=== PATIENT | female | born 1960 | race Caucasian/White ===

== ENCOUNTER 2016-10-05 14:01 | Inpatient (IN) ==
[2016-10-05] MEDS ORDERED: 0.9 % Sodium Chloride 500 ML IVC ONE (14:07)
[2016-10-05] MEDS ORDERED: Aspirin 81 MG TAB.CHEW PO ONE (14:07)
[2016-10-05] MEDS ORDERED: Ondansetron 4 MG/2 ML VIAL IVP ONE (14:09)
[2016-10-05] MEDS ORDERED: *HR* LORazepam 2 MG/ML VIAL IVP ONE (14:14)
--- NOTE | 2016-10-05 14:20 | Emergency Department Note ---
Disposition Clinical Impression: COPD exacerbation, Tachypnea, Lactic acidosis Leukocytosis Qualifiers: Leukocytosis type: unspecified Qualified Code(s): D72.829 - Elevated white blood cell count, unspecified Disposition: Admitted As Inpatient Condition: Undetermined Forms: ED Satisfaction Letter SOB HPI - General Chief Complaint: ED Shortness of Breath/Dyspnea Stated Complaint: GRETCHEN Time Seen by Provider: 10/05/16 14:04 Source: patient, EMS Limitations: no limitations Nursing Notes Reviewed: Yes Vital Signs Reviewed: Yes - History of Present Illness Patient 56-year-old female complains of sudden onset of epigastric abdominal pain, nausea, vomiting, diarrhea 2 was goes. Patient states that she has been feeling ill prior to this but is unable to elaborate on when everything initially started. Patient unable to describe abdominal pain symptoms other than saying it hurts. Patient able to point to the epigastric region of her abdomen. Patient states she cannot breathe as well. Patient states she has a history of COPD, and cholecystectomy. Patient denies cardiac history. - Related Data Home Medications Medication Instructions Recorded Confirmed Suboxone 8 mg-2 mg Sl Film 4 mg PO QID 10/03/15 10/04/15 Budesonide/Formoterol 80/4.5 2 puff AER BID 10/04/15 10/04/15 [Symbicort 80/4.5] CloNIDine HCl 0.1 mg PO BID 10/04/15 10/04/15 Docusate Sodium 100 mg PO BID 10/04/15 10/04/15 Lisinopril [Zestril] 40 mg PO DAILY 10/04/15 10/04/15 Metoprolol [Lopressor] 50 mg PO BID 10/04/15 10/04/15 Montelukast [Singulair] 10 mg PO QPM 10/04/15 10/04/15 Paroxetine [Paxil] 40 mg PO DAILY 10/04/15 10/04/15 Trazodone HCl [TraZODone] 100 mg PO QPM 10/04/15 10/04/15 Previous Rx's Medication Instructions Recorded Amoxicillin/Clavulanate [Augmentin] 875 mg PO BIDWM #20 tablet 10/07/15 Dicyclomine [Bentyl] 20 mg PO QID PRN #40 capsule 01/02/16 Allergies Allergy/AdvReac Type Severity Reaction Status Date / Time acetaminophen [From Vicodin] Allergy Nausea Verified 10/03/15 18:47 hydrocodone [From Vicodin] Allergy Nausea Verified 10/03/15 18:47 Sulfa (Sulfonamide Allergy Blister Verified 10/03/15 18:47 Antibiotics) Review of Systems: When asked patient states she has nausea, vomiting, diarrhea, abdominal pain and shortness of breath. Patient states "I do not know" for all other questions on review of systems All systems ED: reviewed and negative except as stated. 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 history: Reports: cervical cancer - Social History Smoking Status: Current every day smoker Smokeless Tobacco Status: No Alcohol use: Reports: rarely Drug use: Reports: other Physical Exam Vital Signs Temperature 98.2 F 10/05/16 14:01 Pulse Rate 86 10/05/16 14:01 Respiratory Rate 22 10/05/16 14:01 Blood Pressure 125/97 10/05/16 14:01 O2 Sat by Pulse Oximetry 99 10/05/16 14:01 Temperature 98.2 F 10/05/16 14:01 Pulse Rate 67 10/05/16 14:07 Respiratory Rate 24 10/05/16 14:07 Blood Pressure 125/97 10/05/16 14:07 O2 Sat by Pulse Oximetry 100 10/05/16 14:12 Oxygen Delivery Oxygen Delivery Aerosol Mask -General Appearance: Patient is a 56-year-old female who appears in acute distress but is alert and oriented 3. Patient is diaphoretic and has labored breathing, and takes respiratory processes -Neurological exam: Cranial nerves II-12 intact, no focal deficits observed, strength equal 5/5 bilaterally in upper and lower extremities, cerebellar motion test negative. Negative loss of sensation - Head Head exam: atraumatic, normocephalic, normal inspection - Eye Eye exam: Present: normal appearance, PERRL, EOMI, negative for scleral icterus negative for conjunctival pallor - ENT ENT exam: normal exam, normal oropharynx, mucous membranes moist - Neck Neck exam: Present: normal inspection, full ROM, trachea midline, negative JVD - Chest Chest inspection: Present: Patient has bilateral equal rise and fall of chest wall. Non-tender to palpation. - Respiratory Respiratory exam: Clear to auscultation bilaterally without wheezes rales or rhonchi Cardiovascular Cardiovascular exam: Present: regular rate, normal rhythm, normal heart sounds, without murmurs rubs or gallops. - Abdominal Exam Abdominal exam: Present: soft, nondistended, Tender light and deep palpation in all quadrants. Bowel sounds normoactive throughout all 4 quadrants. Negative for hyper or hyperresonance. - Extremities Exam Extremities exam: Present: normal inspection, full ROM, diaphoretic, no pallor pulses equal bilateral upper and lower extremities - Back Exam Back exam: Present: normal inspection, full ROM. Absent: tenderness, CVA tenderness (R), CVA tenderness (L) - Psychiatric Psychiatric exam: Present: normal affect, normal mood - Skin Skin exam: Present: warm, moist and cool, intact, normal color - General Limitations: no limitations General appearance: alert, in no apparent distress Course Course Narrative: Patient seen and examined. Patient placed on O2 via nonrebreather, BiPAP initiated, ABG obtained, labs and imaging ordered. - Reevaluation(s) Reevaluation #1: Patient's ABG returned showing the patient is alkalotic and tachypnea. BiPAP discontinued Time: 14:35 Reevaluation #2: Patient presented her rate got better patient no longer tachypneic. Patient still in pain should be receiving 0.5 mg Dilaudid patient has had 1 mg of Ativan Time: 14:51 Reevaluation #3: Patient states her breathing is improved greatly. Pain level VII out of 10. We will administer another dose of pain medication. Discussed the patient and recommend admission given her state and patient agrees and understands excess treatment plan. Time: 16:54 - Consultations Consultation #1: Dr. Mcguire has accepted for Admission Time: 17:12 Vital Signs Temperature 98.2 F 10/05/16 14:01 Pulse Rate 86 10/05/16 14:01 Respiratory Rate 22 10/05/16 14:01 Blood Pressure 125/97 10/05/16 14:01 O2 Sat by Pulse Oximetry 99 10/05/16 14:01 Temperature 98.2 F 10/05/16 14:01 Pulse Rate 58 10/05/16 15:10 Respiratory Rate 21 10/05/16 15:10 Blood Pressure 137/99 10/05/16 15:10 O2 Sat by Pulse Oximetry 98 10/05/16 15:10 Oxygen Delivery Oxygen Delivery Room Air Shortness of Breath/Dyspnea - [facility] Narrative Medical decision making narrative: Patient is an presentation concerning for COPD exacerbation, abdominal pain secondary to possible ileus, pancreatitis, bowel obstruction, mesenteric ischemia. Patient's chest x-ray showed no acute abnormalities, troponin was negative at 0.01. Patient's place on BiPAP on arrival. ABG showed alkalosis with patient to get pink and breathing over BiPAP. BiPAP was discontinued and patient was given 1 mg Ativan to help her calm down 0.5 mg of Dilaudid for abdominal pain. Physical BiPAP patients breathing rate has decreased and patient is respiratory and perfusion well. Rate of 16, O2 sat of 96 and 99 on room air. Current labs show WBC of 15.1, lipase was negative at 22, lactic acid 2.6. CT abdomen and pelvis showed no acute findings. Patient appears to have had respiratory distress secondary to COPD exacerbation. Patient's breathing rate has been controlled. Patient is breathing better per the patient. Unable to find any clear etiology for patient 's abdominal pain. Pt is Afebrile. The patient is requiring multiple doses of Dilaudid to control her abdominal pain. Patient does have an acute rise in lactic acid 2.6 and a WBC of 15.1. Recommend patient admitted to the hospital for further workup. Patient appears borderline toxic, Patient also feels that she cannot go home like this. Consulted with Dr. Mcguire who has asked to prophylactically treat patient with antibiotics. Pt currently does not have a clear source for infection, but patient has presented with a COPD exacerbation. Start patient on 750 mg levofloxacin IV to cover for possible pulmonary infection unclear etiology - Medical Records Medical records reviewed: Yes I reviewed the patient's medical records. - Lab Data Lab results reviewed: Yes I reviewed the patient's lab results. Lab results narrative: Short CBC 10/05/16 Range/Units 14:20 WBC 15.1 H (4.3-11.1) K/mcL Hgb 15.7 H (11.5-15.4) g/dL Hct 44.8 (35.3-44.9) % Plt Count 336 (140-400) K/mcL Neutrophils # 12.4 H (1.6-8.9) K/mcL BMP 10/05/16 Range/Units 14:20 Sodium 140 (136-145) mEq/L Potassium 4.3 (3.5-4.5) mEq/L Chloride 102 (98-109) mEq/L Carbon Dioxide 21 (19-29) mEq/L BUN 12 (7-20) mg/dL Creatinine 0.94 (0.57-1.11) mg/dL Glucose 144 H (70-99) mg/dL Calcium 10.2 (8.6-10.8) mg/dL Cardiac Enzymes 10/05/16 Range/Units 14:20 Troponin I 0.01 (0-0.03) ng/mL Result diagrams: 10/05/16 14:20 10/05/16 14:20 Lab Results 10/05/16 10/05/16 10/05/16 Range/Units 14:19 14:20 14:20 WBC 15.1 H (4.3-11.1) K/mcL RBC 5.07 H (3.82-4.97) M/mcL Hgb 15.7 H (11.5-15.4) g/dL Hct 44.8 (35.3-44.9) % MCV 88.4 (83.0-100.0) fL MCH 31.0 (28.0-33.3) pg MCHC 35.0 (31.6-35.5) g/dL RDW 12.8 (11.5-14.5) % Plt Count 336 (140-400) K/mcL MPV 9.1 L (9.4-12.4) fL Immature Gran % 0.3 (0-4) % Seg Neutrophils % 81.6 % Lymphocytes % 14.5 % Monocytes % 3.2 % Eosinophils % 0.1 % Basophils % 0.3 % Neutrophils # 12.4 H (1.6-8.9) K/mcL Lymphocytes # 2.2 (0.6-4.6) K/mcL Monocytes # 0.5 (0.0-1.3) K/mcL Eosinophils # 0.0 (0.0-0.6) K/mcL Basophils # 0.1 (0.0-0.2) K/mcL PT (9.4-12.1) Seconds INR APTT (26.0-36.0) Seconds ABG pH 7.62 H* (7.32-7.45) pH Units ABG pCO2 20 L* (35-45) mmHg ABG pO2 208 H (85-104) mmHg ABG HCO3 20.6 L (21-27) mEQ/L ABG Total CO2 21.2 (20-26) mEq/L ABG O2 Saturation 100 H (95-98) % ABG Base Excess 1.8 (-2.0 to 3.0) mEq/L Blood Gas Modality BIPAP Inspired O2 40 % Sodium (136-145) mEq/L Potassium (3.5-4.5) mEq/L Chloride (98-109) mEq/L Carbon Dioxide (19-29) mEq/L BUN (7-20) mg/dL Creatinine (0.57-1.11) mg/dL Est GFR ( Amer) (> 60) Est GFR (Non-Af Amer) (> 60) BUN/Creatinine Ratio (6-26) Glucose (70-99) mg/dL Calculated Osmolality (280-300) Lactic Acid (0.5-2.2) mmol/L Calcium (8.6-10.8) mg/dL Troponin I (0-0.03) ng/mL Lipase 22 (8-78) Units/L Specimen Rejected 10/05/16 10/05/16 10/05/16 Range/Units 14:20 14:20 14:20 WBC (4.3-11.1) K/mcL RBC (3.82-4.97) M/mcL Hgb (11.5-15.4) g/dL Hct (35.3-44.9) % MCV (83.0-100.0) fL MCH (28.0-33.3) pg MCHC (31.6-35.5) g/dL RDW (11.5-14.5) % Plt Count (140-400) K/mcL MPV (9.4-12.4) fL Immature Gran % (0-4) % Seg Neutrophils % % Lymphocytes % % Monocytes % % Eosinophils % % Basophils % % Neutrophils # (1.6-8.9) K/mcL Lymphocytes # (0.6-4.6) K/mcL Monocytes # (0.0-1.3) K/mcL Eosinophils # (0.0-0.6) K/mcL Basophils # (0.0-0.2) K/mcL PT (9.4-12.1) Seconds INR APTT (26.0-36.0) Seconds ABG pH (7.32-7.45) pH Units ABG pCO2 (35-45) mmHg ABG pO2 (85-104) mmHg ABG HCO3 (21-27) mEQ/L ABG Total CO2 (20-26) mEq/L ABG O2 Saturation (95-98) % ABG Base Excess (-2.0 to 3.0) mEq/L Blood Gas Modality Inspired O2 % Sodium 140 (136-145) mEq/L Potassium 4.3 (3.5-4.5) mEq/L Chloride 102 (98-109) mEq/L Carbon Dioxide 21 (19-29) mEq/L BUN 12 (7-20) mg/dL Creatinine 0.94 (0.57-1.11) mg/dL Est GFR ( Amer) > 60 (> 60) Est GFR (Non-Af Amer) > 60 (> 60) BUN/Creatinine Ratio 13 (6-26) Glucose 144 H (70-99) mg/dL Calculated Osmolality 292 (280-300) Lactic Acid (0.5-2.2) mmol/L Calcium 10.2 (8.6-10.8) mg/dL Troponin I 0.01 (0-0.03) ng/mL Lipase (8-78) Units/L Specimen Rejected Hemolyzed 10/05/16 10/05/16 Range/Units 15:06 15:06 WBC (4.3-11.1) K/mcL RBC (3.82-4.97) M/mcL Hgb (11.5-15.4) g/dL Hct (35.3-44.9) % MCV (83.0-100.0) fL MCH (28.0-33.3) pg MCHC (31.6-35.5) g/dL RDW (11.5-14.5) % Plt Count (140-400) K/mcL MPV (9.4-12.4) fL Immature Gran % (0-4) % Seg Neutrophils % % Lymphocytes % % Monocytes % % Eosinophils % % Basophils % % Neutrophils # (1.6-8.9) K/mcL Lymphocytes # (0.6-4.6) K/mcL Monocytes # (0.0-1.3) K/mcL Eosinophils # (0.0-0.6) K/mcL Basophils # (0.0-0.2) K/mcL PT 12.5 H (9.4-12.1) Seconds INR 1.2 APTT 25.9 L (26.0-36.0) Seconds ABG pH (7.32-7.45) pH Units ABG pCO2 (35-45) mmHg ABG pO2 (85-104) mmHg ABG HCO3 (21-27) mEQ/L ABG Total CO2 (20-26) mEq/L ABG O2 Saturation (95-98) % ABG Base Excess (-2.0 to 3.0) mEq/L Blood Gas Modality Inspired O2 % Sodium (136-145) mEq/L Potassium (3.5-4.5) mEq/L Chloride (98-109) mEq/L Carbon Dioxide (19-29) mEq/L BUN (7-20) mg/dL Creatinine (0.57-1.11) mg/dL Est GFR ( Amer) (> 60) Est GFR (Non-Af Amer) (> 60) BUN/Creatinine Ratio (6-26) Glucose (70-99) mg/dL Calculated Osmolality (280-300) Lactic Acid 2.6 H (0.5-2.2) mmol/L Calcium (8.6-10.8) mg/dL Troponin I (0-0.03) ng/mL Lipase (8-78) Units/L Specimen Rejected - Radiology Data Radiology results reviewed: Yes I reviewed the patient's radiology results. Chest X-Ray 10/05/16 14:07 IMPRESSION: Negative chest x-ray. No evidence of acute cardiopulmonary disease. D/ / Maicol Shea MD / Maicol Shea MD Interpreting Provider: Maicol Shea MD - EKG Data EKG attestation: Yes I reviewed and interpreted this EKG. EKG results narrative: EKG taken 10/05/2015 at 1407 hrs. shows a sinus rhythm at [address] deviations in the leads no signs of new right bundle branch block, no QT prolongation no QRS widening. His EKGs taken 2014 shows sinus bradycardia at 53 beats minute with no ST deviations
[2016-10-05 14:25] LABS: ABG Base Excess 1.8 mEq/L (-2.0 to 3.0); ABG HCO3 20.6 mEQ/L (21-27); ABG Oxygen Saturation 100 % (95-98); ABG PO2 208 mmHg (85-104); ABG TCO2 21.2 mEq/L (20-26); Blood Gas FiO2 40 %
[2016-10-05 14:27] LABS: ABG PCO2 20 mmHg (35-45); ABG PH 7.62 pH Units (7.32-7.45)
[2016-10-05 14:29] LABS: Basophils # 0.1 K/mcL (0.0-0.2); Basophils % 0.3 %; Eosinophils % 0.1 %; Hematocrit 44.8 % (35.3-44.9); Hemoglobin 15.7 g/dL (11.5-15.4); Immature Granulocytes % 0.3 % (0-4); Lymphocytes # 2.2 K/mcL (0.6-4.6); Lymphocytes % 14.5 %; Mean Corpuscular Volume 88.4 fL (83.0-100.0); Mean Platelet Volume 9.1 fL (9.4-12.4); Monocytes # 0.5 K/mcL (0.0-1.3); Monocytes % 3.2 %; Neutrophils # 12.4 K/mcL (1.6-8.9); Platelet Count 336 K/mcL (140-400); Red Blood Count 5.07 M/mcL (3.82-4.97); Red Cell Distribution Width 12.8 % (11.5-14.5); Segmented Neutrophils % 81.6 %
[2016-10-05 14:43] LABS: BUN/Creatinine Ratio 13 (6-26); Blood Urea Nitrogen 12 mg/dL (7-20); Calcium 10.2 mg/dL (8.6-10.8); Carbon Dioxide 21 mEq/L (19-29); Chloride 102 mEq/L (98-109); Glucose 144 mg/dL (70-99); Osmolality,Calculated 292 (280-300); Potassium 4.3 mEq/L (3.5-4.5); Sodium 140 mEq/L (136-145); eGFR For African Americans > 60 (> 60); eGFR For Non-African Americans > 60 (> 60)
[2016-10-05] MEDS ORDERED: *HR* HYDROmorphone 2 MG/ML SYRINGE IV ONE ×3 (14:50→16:41)
--- NOTE | 2016-10-05 15:11 | Emergency Department Note ---
START Narrative - START START: I examined this patient and my medical decision-making was reviewed with the PANEL EDGE SEALER/PA/Advanced Practice Nurse/Resident Physician. I agree with the documented findings, disposition and treatment plan as described except to the extent set forth below. ED attending note:I saw this Patient with the emergency medicine resident Dr. Rosas. Please see a copy of his note for details of the H&P, evaluation, management and disposition of this emergency Department patient. We independently had [id number] contact with the patient. Briefly: A 56 y/o female via ems pter with n/v/abd pain & sob/ pt has hx of vulvar CA and tremors & COPD. Pt placed on Bipap and given meds with labs/imaging pending. We provided 45 mins of critical care service for this pt. Pt is currently stable, disposition pending. .
[2016-10-05 15:22] LABS: INR 1.2; Prothrombin Time 12.5 Seconds (9.4-12.1)
[2016-10-05 15:24] LABS: Activated Partial Thrombo Time 25.9 Seconds (26.0-36.0)
[2016-10-05] MEDS: 0.9 % Sodium Chloride 1,000 ML IVC SCH ×2 (15:51→17:21)
[2016-10-05] MEDS: Levofloxacin 750 MG/150 ML 750 MG/150 ML BAG IVPB SCH (17:47)
[2016-10-05 17:48] LABS: Bilirubin,Urine Small (Negative); Blood,Urine Negative (Negative); Clarity,Urine Clear (Clear); Color,Urine Yellow (Yellow); Glucose,Urine (UA) Normal (Normal); Ketones,Urine 40 mg/dL (Negative); Leukocyte Esterase,Urine Negative (Negative); Nitrite,Urine Negative (Negative); Protein,Urine Trace mg/dL (Neg-Trace); Specific Gravity,Urine > 1.030 (1.010-1.025); Urobilinogen,Urine Normal (Normal)
[2016-10-05 17:58] LABS: Squamous Epithelial Cell,Urine Few per lpf (None-Few); WBC,Urine 0-3 per hpf (0-3)
[2016-10-05] MEDS ORDERED: Levofloxacin 750 MG/150 ML 750 MG/150 ML BAG IVPB SCH (18:00)
[2016-10-05] MEDS ORDERED: Naloxone 0.4 MG/ML INJ IVP PRN (19:22)
[2016-10-05] MEDS ORDERED: Ondansetron 4 MG/2 ML VIAL IVP PRN (19:22)
[2016-10-05] MEDS: Lisinopril 20 MG TABLET PO SCH (19:25)
[2016-10-05] MEDS: cloNIDine HCl 0.1 MG TABLET PO SCH ×2 (19:25→20:06)
[2016-10-05] MEDS ORDERED: Ipratropium/Albuterol Neb 3 ML IH PRN (19:27)
--- NOTE | 2016-10-05 19:43 | Internal Med History&Physical ---
Date of Encounter: 10/05/16 Time of Encounter: 18:00 Assessment and Plan (1) Epigastric abdominal pain Current visit: Yes Status: Acute Concern for peptic ulcer disease Will benefit from EGD given symptoms of weight loss and age GI (Dr. Corona ) consulted Clear liquid diet at this time and NPO after midnight Protonix 40mg IV qd pain control IV fluids Zofran prn nausea (2) COPD with acute exacerbation Current visit: Yes Status: Acute -Currently saturating well on nasal cannula -continue steroids and bronchodilator support -titrate steroid therapy as clinically improves -monitor O2 sat (goal sat:89-92%) -O2 supplementation as needed (3) Lactic acidosis Current visit: Yes Status: Acute -Likely secondary to hypoxia upon admission -f/u repeat LA level -continue to closely monitor respiratory status (4) Hypertension Current visit: Yes Status: Acute Patient reports of not taking her home BP medications today Will resume home medications closely monitor BP Qualifiers: Hypertension type: essential hypertension Qualified Code(s): I10 - Essential (primary) hypertension (5) Leukocytosis Current visit: Yes Status: Acute Likely secondary to COPD exacerbation Started Levaquin continue to monitor f/u blood cultures Qualifiers: Leukocytosis type: unspecified Qualified Code(s): D72.829 - Elevated white blood cell count, unspecified (6) DVT prophylaxis Current visit: No Status: Acute EPCD until EGD (7) History of substance abuse Current visit: No Status: Chronic Current everyday Marijuana use Cessation counselling provided patient not ready to quit at this time (8) Tobacco abuse Current visit: No Status: Chronic Smoking cessation counseling provided patient not ready to quit at this time nicotine replacement therapy provided Internal Medicine - H&P: HPI Chief complaint: shortness of breath, abd pain Admitted From: Home Plans for Post Hospital Care: Home History of present illness: Ms. Fleming is a 56 year old female with PMH of hypertension, COPD, essential tremors, vulvar ca s/p resection who presents to the ER for evaluation of severe abdominal pain and worsening shortness of breath. Patient is not completely aware of her medical history but states she is able to take care of her daily ADLs and is able to get to the doctors appointments by herself. She states she has had chronic diarrhea for months, however for the last few days she has had worsening localized epigastric pain. Unable to characterize the pain and reports of noticing weight loss in the last few months. No prior EGD or colonoscopy is reported. She was also noted to be in severe respiratory distress in the ER requiring bipap support. At this time she is resting in bed, states she feels better since admission. Reports of nausea but denies any vomiting, hematochezia, melena, or any hemoptysis. She reports of having history of heart burn and is currently on Prilosec. She denies any headache, chest pain, palpitations, sob, fever, or chills at this time. PMH: COPD, HTN, anxiety, Essential tremors, Vulvar Ca Social hx: Everyday smoker-2ppd x 30+years, everyday marijuana use, occasional alcohol use Past Med Surg Social Fam HX - Past Medical History Medical history: cancer, COPD, CVA, other Psychiatric history: depression - Past Surgical History Surgical History: cholecystectomy, hysterectomy - Social History Smoking Status: Current every day smoker Packs per day: 2 Smokeless Tobacco Status: No Alcohol use: rarely Drug use: marijuana - Family History Father Living Status: Hx Family Cancer: Yes (esophogeal cancer) Internal Medicine - H&P: Meds Budesonide/Formoterol 80/4.5 [Symbicort 80/4.5] 2 puff IH BID 10/04/15 [History ] CloNIDine HCl 0.1 mg PO BID 10/04/15 [History] Docusate [Colace] 100 mg PO BID #0 10/04/15 [History] Lisinopril [Zestril] 40 mg PO DAILY 10/04/15 [History] Metoprolol [Lopressor] 50 mg PO BID 10/04/15 [History] Montelukast [Singulair] 10 mg PO QPM 10/04/15 [History] Paroxetine [Paxil] 40 mg PO DAILY 10/04/15 [History] Trazodone HCl [TraZODone] 100 mg PO QPM 10/04/15 [History] Dicyclomine [Bentyl] 20 mg PO QID PRN #40 capsule 01/02/16 [Rx] Gabapentin [Neurontin] 300 mg PO BID 10/05/16 [History] Naltrexone Microspheres [Vivitrol] 380 mg IM QMONTH 10/05/16 [History] Omeprazole [PriLOSEC] 20 mg PO DAILY 10/05/16 [History] Allergies acetaminophen [From Vicodin] Allergy (Verified 10/03/15 18:47) Nausea hydrocodone [From Vicodin] Allergy (Verified 10/03/15 18:47) Nausea Sulfa (Sulfonamide Antibiotics) Allergy (Verified 10/03/15 18:47) Blister All Systems PM: A 10-system review of systems was performed and is negative for pertinent findings except as documented above in the HPI. - Constitutional Constitutional: as per HPI - Gastrointestinal Gastrointestinal: as per HPI, diarrhea, heartburn - Constitutional Vitals: Temp Pulse Resp BP Pulse Ox 97.4 F L 77 18 160/92 96 10/05/16 18:37 10/05/16 19:09 10/05/16 19:09 10/05/16 19:09 10/05/16 19:09 General appearance: Present: A&O X 3, no acute distress, obese, answers questions appropriately - Head Head exam: Present: atraumatic, normocephalic - Eye Eye exam: Present: EOMI, normal appearance, PERRL, conjuntiva pink, sclera anicteric - Respiratory Respiratory exam: Present: decreased breath sounds (bilaterally). Absent: respiratory distress, wheezes - Cardiovascular Cardiovascular exam: Present: RRR, +S1, +S2 - GI/Abdominal GI/Abdominal exam: Present: normal bowel sounds, soft, tenderness (mild midline epigastric tenderness to palpation), no peritoneal signs. Absent: distended, guarding, rebound - Extremities Exam Extremities exam: Present: warm, radial pulses palpable and symetrical. Absent : calf tenderness, pedal edema, tenderness - Neurological Exam Neurological exam: Present: alert, oriented X3 (diffuse essential tremors), no focal deficits - Psychiatric Psychiatric exam: Present: normal affect, normal mood Internal Med - H&P Results - Labs CBC & Chem 7: 10/05/16 14:20 10/05/16 14:20
[2016-10-05 19:54] LABS: Basophils % 0.1 %; Eosinophils % 0.4 %; Hematocrit 42.3 % (35.3-44.9); Immature Granulocytes % 0.4 % (0-4); Lymphocytes % 9.9 %; Mean Corpuscular HGB Conc 33.3 g/dL (31.6-35.5); Mean Corpuscular Hemoglobin 30.8 pg (28.0-33.3); Mean Corpuscular Volume 92.4 fL (83.0-100.0); Mean Platelet Volume 9.8 fL (9.4-12.4); Monocytes # 0.2 K/mcL (0.0-1.3); Monocytes % 2.3 %; Neutrophils # 8.6 K/mcL (1.6-8.9); Platelet Count 212 K/mcL (140-400); Red Blood Count 4.58 M/mcL (3.82-4.97); Red Cell Distribution Width 12.9 % (11.5-14.5); Segmented Neutrophils % 86.9 %
[2016-10-05 20:01] LABS: Hemoglobin 14.1 g/dL (11.5-15.4)
[2016-10-05] MEDS: Gabapentin 300 MG CAPSULE PO SCH (20:14)
[2016-10-05] MEDS: traZODone 50 MG TABLET PO SCH (20:14)
[2016-10-05] MEDS: Nicotine 21 MG PATCH.TD24 TD SCH (20:15)
[2016-10-05] MEDS: Pantoprazole 40 MG VIAL IVP SCH (20:15)
[2016-10-05 20:17] LABS: Platelet Estimate Normal (Normal)
[2016-10-05] MEDS: *HR* HYDROmorphone (PF) 1 MG/ML SYRINGE IVP PRN (20:28)
[2016-10-05] MEDS: MethylPREDNISolone 40 MG/ML VIAL IVP SCH (20:44)
[2016-10-05] MEDS ORDERED: cloNIDine HCl 0.1 MG TABLET PO SCH (21:00)
[2016-10-05] MEDS: Budesonide/Formoterol 80/4.5 MDI IH SCH (22:30)
[2016-10-05] MEDS: Ipratropium/Albuterol Neb 3 ML IH SCH ×2 (22:33→22:34)
[2016-10-06 04:01] LABS: Basophils % 0.1 %; Hematocrit 38.6 % (35.3-44.9); Hemoglobin 12.9 g/dL (11.5-15.4); Immature Granulocytes % 0.4 % (0-4); Lymphocytes # 0.7 K/mcL (0.6-4.6); Lymphocytes % 9.9 %; Mean Corpuscular HGB Conc 33.4 g/dL (31.6-35.5); Mean Corpuscular Hemoglobin 30.4 pg (28.0-33.3); Mean Platelet Volume 9.5 fL (9.4-12.4); Monocytes % 0.6 %; Neutrophils # 6.4 K/mcL (1.6-8.9); Platelet Count 229 K/mcL (140-400); Red Blood Count 4.24 M/mcL (3.82-4.97); Red Cell Distribution Width 12.9 % (11.5-14.5)
[2016-10-06 04:16] LABS: BUN/Creatinine Ratio 13 (6-26); Blood Urea Nitrogen 10 mg/dL (7-20); Carbon Dioxide 22 mEq/L (19-29); Chloride 107 mEq/L (98-109); Glucose 120 mg/dL (70-99); Magnesium 1.4 mg/dL (1.6-2.6); Osmolality,Calculated 284 (280-300); Phosphorous 3.5 mg/dL (2.3-4.7); Potassium 4.3 mEq/L (3.5-4.5); Sodium 137 mEq/L (136-145); eGFR For African Americans > 60 (> 60); eGFR For Non-African Americans > 60 (> 60)
[2016-10-06 04:17] LABS: Calcium 8.3 mg/dL (8.6-10.8)
[2016-10-06] MEDS: Ipratropium/Albuterol Neb 3 ML IH SCH ×2 (04:20→09:03)
[2016-10-06] MEDS: *HR* HYDROmorphone (PF) 1 MG/ML SYRINGE IVP PRN ×4 (04:37→22:13)
[2016-10-06] MEDS: MethylPREDNISolone 40 MG/ML VIAL IVP SCH (05:50)
[2016-10-06] MEDS ORDERED: Lisinopril 20 MG TABLET PO SCH (09:00)
[2016-10-06] MEDS: Budesonide/Formoterol 80/4.5 MDI IH SCH ×2 (09:03→21:48)
--- NOTE | 2016-10-06 09:35 | Gastroenterology Consult Note ---
<Perez Nielsen - Last Filed: 10/06/16 11:24> Date of Encounter: 10/06/16 Time of Encounter: 10:30 - Assessment and plan (1) Epigastric abdominal pain Current Visit: Yes Status: Acute Assessment and plan: Continue PPI, plan for EGD today to r/o esophagitis, gastritis, duodenitis, PUD , MW tear, or AVM. (2) COPD exacerbation Current Visit: Yes Status: Acute (3) Lactic acidosis Current Visit: Yes Status: Acute (4) Diarrhea Current Visit: Yes Status: Acute Assessment and plan: Complete stool workup. Will discuss colonoscopy with Dr. Corona. Qualifiers: Diarrhea type: unspecified type Qualified Code(s): R19.7 - Diarrhea, unspecified - Time Spent With Patient Total time spent is greater than 50% in coordination of care (as documented) at patient's floor/unit and/or counseling patient: GI History of Present Illness - Data of Consult Patient: new to practice Consult date: 10/06/16 Requesting Physician: Toshia Gentile - Consult Narrative Reason for consult: Epigastric pain, weight loss History of present illness: Ms. Fleming is a 56 year old female with PMHx of HTN, COPD, essential tremors, and vulvar Ca s/p resection who presented to the ED with c/o abdominal pain and SOB. She was found to be in severe respiratory distress in the ED and required BiPAP support. She complains of chronic diarrhea for the past 5 months, having up to 5 BMs daily. She admits to episodes of fecal incontinence. She denies melena, hematochezia, hematemesis, or hemoptysis. She reports GERD and is taking Prilosec, which is not controlling symptoms well. Procedures: EGD 05/18/2012 Dr. Rojo erythema of gastric cardia and antrum ( chemical gastritis). NSAIDs: None Anticoagulation: None Past Med Surg Social Fam HX - Past Medical History Medical history: cancer, COPD, CVA, other Psychiatric history: depression - Past Surgical History Surgical History: cholecystectomy, hysterectomy - Social History Smoking Status: Current every day smoker Packs per day: 2 Smokeless Tobacco Status: No Alcohol use: rarely Drug use: marijuana - Family History Father Living Status: Hx Family Cancer: Yes (esophogeal cancer) - Gastrointestinal Gastrointestinal: Present: as per HPI - Constitutional Constitutional: as per HPI - EENT Eyes: as per HPI Ears: Present: as per HPI Nose, mouth and throat: Present: as per HPI - Cardiovascular Cardiovascular ROS: Present: as per HPI - Respiratory Respiratory IM: Present: as per HPI - Genitourinary Genitourinary: Absent: change in color, Urinary frequency - Neurological ROS Neurological GI: Present: as per HPI - Hematologic/Lymphatic Hematologic/Lymphatic pediatric: Present: as per HPI - Musculoskeletal Musculoskeletal ROS GI: Present: as per HPI - Integumentary Integumentary GI: Present: as per HPI - Psychiatric ROS Psychiatric GI: Present: as per HPI - Endocrine Endocrine IM: Present: as per HPI - Constitutional Vitals: Temp Pulse Resp BP Pulse Ox 97.3 F L 64 16 127/58 92 L 10/06/16 08:24 10/06/16 08:24 10/06/16 09:03 10/06/16 09:03 10/06/16 09:03 General appearance: Present: cooperative, A&O X 3, no acute distress, answers questions appropriately - Head Head exam: Present: atraumatic, normocephalic - Eye Eye exam: Present: normal appearance, sclera anicteric - ENT ENT exam: Present: mucous membranes dry - Neck Neck exam general surgery: Present: normal inspection, trachea midline - Respiratory Respiratory exam: Present: decreased breath sounds, CTAB. Absent: respiratory distress, wheezes - Cardiovascular Cardiovascular exam: Present: RRR, +S1, +S2 - GI/Abdominal GI/Abdominal exam: Present: soft, tenderness (Midepigastric tenderness to palpation), no peritoneal signs. Absent: distended, firm, guarding - Rectal Rectal exam: Present: deferred - Extremities Exam Extremities exam: Present: warm - Neurological Exam Additional comments: Essential tremors - Psychiatric Psychiatric exam: Present: normal affect, normal mood - Skin Skin exam: Present: dry, intact, normal color, warm Results - Labs CBC & Chem 7: 10/06/16 03:05 10/06/16 03:05 Labs: Last Result Calcium 8.3 mg/dL (8.6-10.8) L D 10/06/16 03:05 Troponin I 0.01 ng/mL (0-0.03) 10/05/16 14:20 Entire Visit Hgb 12.9 g/dL (11.5-15.4) 10/06/16 03:05 Hct 38.6 % (35.3-44.9) 10/06/16 03:05 PT 12.5 Seconds (9.4-12.1) H 10/05/16 15:06 Lipase 22 Units/L (8-78) 10/05/16 14:20 - ABG ABG results: ABG ABG pH 7.62 pH Units (7.32-7.45) H* 10/05/16 14:19 ABG pCO2 20 mmHg (35-45) L* 10/05/16 14:19 ABG pO2 208 mmHg (85-104) H 10/05/16 14:19 ABG O2 Saturation 100 % (95-98) H 10/05/16 14:19 PT/INR, D-dimer PT 12.5 Seconds (9.4-12.1) H 10/05/16 15:06 Consult Discharge Plan - Plan Referrals: Savi Padilla MD [Non-Partnered Physician] - 10/13/16 10:00 am (Please follow up as schedule...) <Jaylen Corona - Last Filed: 10/06/16 13:54> Time of Encounter: 12:40 - Time Spent With Patient Total time spent is greater than 50% in coordination of care (as documented) at patient's floor/unit and/or counseling patient: GI History of Present Illness - Data of Consult Requesting Physician: Toshia Gentile - Consult Narrative History of present illness: Ms. Fleming is a 56 year old female - Constitutional Vitals: Temp Pulse Resp BP Pulse Ox 98.6 F 58 16 149/73 97 10/06/16 12:35 10/06/16 13:30 10/06/16 13:30 10/06/16 13:30 10/06/16 13:30 Results - Labs CBC & Chem 7: 10/06/16 03:05 10/06/16 03:05 Labs: Last Result Calcium 8.3 mg/dL (8.6-10.8) L D 10/06/16 03:05 Troponin I 0.01 ng/mL (0-0.03) 10/05/16 14:20 Entire Visit Hgb 12.9 g/dL (11.5-15.4) 10/06/16 03:05 Hct 38.6 % (35.3-44.9) 10/06/16 03:05 PT 12.5 Seconds (9.4-12.1) H 10/05/16 15:06 Lipase 22 Units/L (8-78) 10/05/16 14:20 - ABG ABG results: ABG ABG pH 7.62 pH Units (7.32-7.45) H* 10/05/16 14:19 ABG pCO2 20 mmHg (35-45) L* 10/05/16 14:19 ABG pO2 208 mmHg (85-104) H 10/05/16 14:19 ABG O2 Saturation 100 % (95-98) H 10/05/16 14:19 PT/INR, D-dimer PT 12.5 Seconds (9.4-12.1) H 10/05/16 15:06 - Attending Attestation I examined this patient and my medical decision-making was reviewed with the LINE PATROLMAN/PA/Advanced Practice Nurse/Resident Physician. I agree with the documented findings, disposition and treatment plan as described except to the extent set forth below. 1: Epigastric pain: Midepigastric pain for many years. Patient GB is already out no radiation of the pain to the back. From an EGD and if negative MRCP to rule out CBD stone. 2: Regarding diarrhea. Frequency up to 5 times a day. Initial stool studies and then follow-up with us as an outpatient patient may be needing colonoscopy with biopsies
--- NOTE | 2016-10-06 10:03 | Electrocardiograph Report ---
[facility] Test Date: 2016-10-05 Pat Name: Cindy Fleming Department: 104 Room: 2A22 Gender: F Cardiac Rehab Nurse: : 1960 Requested By: Jairo Rojo Order Number: [id number] Reading MD: Percy Ontiveros MD Measurements Intervals [place] Rate: 67 P: 57 MD: 130 QRS: 29 QRSD: 88 T: 56 QT: 451 QTc: 466 Interpretive Statements SINUS RHYTHM WITH SIGNIFICANT BASELINE ARTIFACT Electronically Signed On 10-06-16 10:02:52 EST by Percy Ontiveros MD
[2016-10-06] MEDS: Levofloxacin 750 MG/150 ML 750 MG/150 ML BAG IVPB SCH (10:04)
[2016-10-06] MEDS: cloNIDine HCl 0.1 MG TABLET PO SCH ×2 (10:04→21:17)
[2016-10-06] MEDS: Lisinopril 20 MG TABLET PO SCH (10:04)
[2016-10-06] MEDS: Pantoprazole 40 MG VIAL IVP SCH (10:04)
[2016-10-06] MEDS: Nicotine 21 MG PATCH.TD24 TD SCH (10:04)
[2016-10-06] MEDS: Gabapentin 300 MG CAPSULE PO SCH ×2 (10:04→21:18)
--- NOTE | 2016-10-06 12:51 | Anesthesia Evaluation PreOp ---
Date of Encounter: 10/06/16 Time of Encounter: 12:50 - Past History Planned Operation: EGD Cardiac History: HTN (maintained on Lisinopril, Metoprolol, Clonidine) Pulmonary History: Smoker (2ppd x 40yrs everyday smoker,), COPD (w/ acute exacerbation this hospitalization. 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 Tremor/Essential Tremor) Other Medical History: GERD (maintained on Prilosec), Other (IBS maintained on Bentyl) Anesthesia History: No Prior Anesthetic Complications, Past Anesthesia (Dixie, Hyster) Alcohol Use: rarely Drug use: marijuana (daily), other (Hx of Substance abuse maintained on Vivitrol [Naltrexone microspheres]) Medications and Allergies Budesonide/Formoterol 80/4.5 [Symbicort 80/4.5] 2 puff IH BID 10/04/15 [History ] CloNIDine HCl 0.1 mg PO BID 10/04/15 [History] Docusate [Colace] 100 mg PO BID #0 10/04/15 [History] Lisinopril [Zestril] 40 mg PO DAILY 10/04/15 [History] Metoprolol [Lopressor] 50 mg PO BID 10/04/15 [History] Montelukast [Singulair] 10 mg PO QPM 10/04/15 [History] Paroxetine [Paxil] 40 mg PO DAILY 10/04/15 [History] Trazodone HCl [TraZODone] 100 mg PO QPM 10/04/15 [History] Dicyclomine [Bentyl] 20 mg PO QID PRN #40 capsule 01/02/16 [Rx] Gabapentin [Neurontin] 300 mg PO BID 10/05/16 [History] Naltrexone Microspheres [Vivitrol] 380 mg IM QMONTH 10/05/16 [History] Omeprazole [PriLOSEC] 20 mg PO DAILY 10/05/16 [History] Allergies acetaminophen [From Vicodin] Allergy (Verified 10/03/15 18:47) Nausea hydrocodone [From Vicodin] Allergy (Verified 10/03/15 18:47) Nausea Sulfa (Sulfonamide Antibiotics) Allergy (Verified 10/03/15 18:47) Blister - Meds/Allergy Pre-op Review Medications Reviewed: Yes Allergies Reviewed: Yes Beta Blockers on Current Med List: No Anesthesia Results - Labs 10/06/16 03:05 10/06/16 03:05 Laboratory Results Impressions Chest X-Ray 10/05/16 14:07 IMPRESSION: Negative chest x-ray. No evidence of acute cardiopulmonary disease. D/ / Maicol Shea MD / Maicol Shea MD Interpreting Provider: Maicol Shea MD Abdomen/Pelvis CT 10/05/16 14:10 IMPRESSION: 1. No acute findings within the abdomen. 2. No acute findings within the pelvis. D/ / 10/05/2016 15:55:16 Ed Pierre MD / Lucía Floyd Interpreting Provider: Ed Pierre MD - Imaging EKG: image reviewed Anesthesia Exam Vital Signs Temp Pulse Resp BP Pulse Ox 10/06/16 12:35 98.6 F 55 16 130/67 96 10/06/16 10:39 97.5 F L 65 16 119/74 91 L 10/06/16 10:01 91 L 10/06/16 09:03 16 127/58 92 L 10/06/16 08:24 97.3 F L 64 16 127/58 94 L 10/06/16 04:55 97.6 F 55 18 126/72 94 L 10/06/16 01:12 98.0 F 56 17 138/70 93 L 10/05/16 21:34 18 96 10/05/16 20:33 96 10/05/16 19:09 77 18 160/92 96 10/05/16 19:01 97 10/05/16 18:37 97.4 F L 74 18 171/97 99 10/05/16 18:24 21 153/84 10/05/16 15:10 58 21 137/99 98 10/05/16 14:21 49 100 10/05/16 14:12 100 10/05/16 14:07 67 24 125/97 100 10/05/16 14:01 98.2 F 86 22 125/97 99 Intake and Output 10/05/16 10/06/16 10/06/16 23:59 07:59 15:59 Intake Total 2150 / 2150 1050 / 1050 Output Total 800 / 800 Balance 2150 / 2150 -800 / -800 1050 / 1050 Intake: IV Fluids 2150 / 2150 1000 / 1000 0.45% Sodium Chloride 1000 / 1000 1000 Ml 1000 Ml 1,000 ML @ 75 mls/hr IVC .[id number] [facility] Rx#:[id number] 0.9 % Sodium Chloride 1, 2000 / 2000 000 ML @ 3750 mls/hr IVC .Q16M [facility] Rx#:[id number] Levaquin 750mg/150 mL 750 150 / 150 mg In 150 ml @ 100 mls/ hr IVPB DAILY [facility] Rx#: [id number] Oral 50 / 50 Output: Urine 800 / 800 Other: Weight 84.368 kg 84.368 kg Patient Weight 10/06/16 23:59 Weight 84.368 kg - HEENT Pupil (Motor): Pupils equal, EOMI Mallampati: III Teeth: Poor dentition Oral Opening: Greater than 3 - PASTRY FINISHER LOC: Oriented PASTRY FINISHER Motor: Normal RUE, Normal LUE, Normal RLE, Normal LLE, Normal Face PASTRY FINISHER Sensory: Normal: RUE, LUE, RLE, LLE, Face - Cardiac JVD: No - Pulmonary Breath Sounds: bilateral Clear Respiratory Effort: Symmetrical Anesthesia Assess/Plan ASA Score: 3 (COPD, Smoker, Hx substance abuse, HTN, Anxiety/Depression) Modified [place] Scale for Level of Consciousness: Cooperative, oriented, and tranquil Anesthetic Plan: General, MAC Monitoring Plan: Standard Monitors Recovery Plan: Other Anes Supervising Prov Stmt: PT seen/evaluated, R&B discussed, questions answered and consent obtained. Poonam Sanchez MD
[2016-10-06] MEDS ORDERED: Ondansetron 4 MG/2 ML VIAL IVP PRN (14:38)
--- NOTE | 2016-10-06 14:51 | Anesthesia Evaluation Post Op ---
Date of Encounter: 10/06/16 Time of Encounter: 13:40 - Vital Signs Vital Signs: Temp Pulse Resp BP Pulse Ox 98.6 F 62 18 155/84 98 10/06/16 13:45 10/06/16 13:45 10/06/16 13:45 10/06/16 13:45 10/06/16 13:45 - Lungs Lungs: Clear Ascult./Percussion - Airway Airway: Non-obstructed - Cardiovascular Regular Rate - Mental Status Mental Status: Alert & Oriented, Answers Appropriately - Pain Pain Scale: 0 Pain Scale used: Numeric (1 - 10) - Nausea Vomiting Nausea Vomiting: Not Present - Hydration Hydration: NPO, Has not voided - Discharge PostOp Status: Transfer Patient to floor
[2016-10-06] MEDS ORDERED: Ondansetron 4 MG/2 ML VIAL IVP SCH (16:00)
--- NOTE | 2016-10-06 16:10 | Internal Med Progress Note ---
Date of Encounter: 10/06/16 Time of Encounter: 16:07 - Assessment and plan (1) Epigastric abdominal pain Current Visit: Yes Status: Acute Assessment and plan: reports that torres pain is better but is scheduled for EGD Today with GI. will continue the PPI and follow the EGD results. given h/o substance abuse, will provide narcotics cautiously. canbe started in clear liquids after EGD and advanced as tolerated. (2) COPD exacerbation Current Visit: Yes Status: Acute Assessment and plan: seh has minimal wheezing on exam and not on o2 at home. will change steroid to oral and continue the breathing tretaments as needed for now. continue symbicort. (3) Hypertension Current Visit: Yes Status: Acute Qualifiers: Hypertension type: essential hypertension Qualified Code(s): I10 - Essential (primary) hypertension (4) History of substance abuse Current Visit: No Status: Chronic - Time Spent With Patient 25 - 35 minutes - Subjective Interval history: seen at the bedside , c/o mild epigastric pain, has nausea but no vomtiing. NPO for now for EGD Today with GI to r/o ulcers, mucosal tear or any other pathology. willl follow GI recommendations and EGD results. - Constitutional Vitals: Temp Pulse Resp BP Pulse Ox 98.6 F 62 18 155/84 98 10/06/16 13:45 10/06/16 13:45 10/06/16 13:45 10/06/16 13:45 10/06/16 13:45 General appearance: Present: A&O X 3, no acute distress, obese, answers questions appropriately Exam: neck- supple chest- b/l clear, no added sounds CVS-s1 and s2, no mr//g abd- soft, non tender, bs are present ext-no edema Internal Medicine: Result - Labs CBC & Chem 7: 10/06/16 03:05 10/06/16 03:05 Labs: Short CBC 10/05/16 10/06/16 Range/Units 19:47 03:05 WBC 9.9 7.1 (4.3-11.1) K/mcL Hgb 14.1 D 12.9 (11.5-15.4) g/dL Hct 42.3 38.6 (35.3-44.9) % Plt Count 212 229 (140-400) K/mcL Neutrophils # 8.6 6.4 (1.6-8.9) K/mcL BMP 10/06/16 03:05 Sodium 137 Potassium 4.3 Chloride 107 Carbon Dioxide 22 BUN 10 Creatinine 0.75 Glucose 120 H Calcium 8.3 L D - ABG Interpretation ABG results: ABG ABG pH 7.62 pH Units (7.32-7.45) H* 10/05/16 14:19 ABG pCO2 20 mmHg (35-45) L* 10/05/16 14:19 ABG pO2 208 mmHg (85-104) H 10/05/16 14:19 ABG O2 Saturation 100 % (95-98) H 10/05/16 14:19 PT/INR, D-dimer PT 12.5 Seconds (9.4-12.1) H 10/05/16 15:06 Consult Discharge Plan - Plan Referrals: Savi Padilla MD [Non-Partnered Physician] - 10/13/16 10:00 am (Please follow up as schedule...)
[2016-10-06] MEDS: *HR* Heparin 5,000 UNIT/ML VIAL SQ SCH (17:52)
[2016-10-06] MEDS: traZODone 50 MG TABLET PO SCH (17:52)
[2016-10-07] MEDS: *HR* HYDROmorphone (PF) 1 MG/ML SYRINGE IVP PRN ×3 (05:15→15:15)
[2016-10-07] MEDS: *HR* Heparin 5,000 UNIT/ML VIAL SQ SCH (05:15)
[2016-10-07] MEDS: Budesonide/Formoterol 80/4.5 MDI IH SCH (08:03)
[2016-10-07] MEDS ORDERED: predniSONE 20 MG TABLET PO SCH (09:00)
[2016-10-07] MEDS: Lisinopril 20 MG TABLET PO SCH (09:06)
[2016-10-07] MEDS: Nicotine 21 MG PATCH.TD24 TD SCH (09:07)
[2016-10-07] MEDS: Pantoprazole 40 MG VIAL IVP SCH (09:07)
[2016-10-07] MEDS: Gabapentin 300 MG CAPSULE PO SCH (09:07)
[2016-10-07] MEDS: cloNIDine HCl 0.1 MG TABLET PO SCH (09:07)
[2016-10-07 09:20] LABS: Adenovirus F 40/41 PCR Not detected (Not detect); Astrovirus PCR Not detected (Not detect); C.difficile Toxin A/B by PCR Not detected (Not detect); Campylobacter by PCR Not detected (Not detect); Cryptosporidium by PCR Not detected (Not detect); Cyclospora cayetanensis PCR Not detected (Not detect); E. coli O157 by PCR Not detected (Not detect); Entamoeba histolytica PCR Not detected (Not detect); Enteroaggregative E.coli(EAEC) Not detected (Not detect); Enteropathogenic E.coli(EPEC) Not detected (Not detect); Enterotoxigenic E.coli (ETEC) Not detected (Not detect); Giardia lamblia PCR Not detected (Not detect); Norovirus GI/GII PCR Not detected (Not detect); Plesiomonas shigelloides PCR Not detected (Not detect); Rotavirus A PCR Not detected (Not detect); Salmonella PCR Not detected (Not detect); Sapovirus PCR Not detected (Not detect); Shig/EnteroinvasiveE coli EIEC Not detected (Not detect); Shigalike tox-prod E coli STEC Not detected (Not detect); Vibrio PCR Not detected (Not detect); Vibrio cholerae PCR Not detected (Not detect); Yersinia enterocolitica PCR Not detected (Not detect)
[2016-10-07 10:45] VITALS: BP 115/65
--- NOTE | 2016-10-07 15:52 | Discharge Summary ---
Date of Encounter: 10/07/16 Time of Encounter: 15:49 - Discharge Diagnosis (1) Epigastric abdominal pain Priority: Primary Status: Acute (2) COPD exacerbation Priority: Secondary Status: Acute (3) Hypertension Priority: Secondary Status: Acute Qualifiers: Hypertension type: essential hypertension Qualified Code(s): I10 - Essential (primary) hypertension (4) History of substance abuse Priority: Secondary Status: Chronic - Discharge Medications Prescriptions: PredniSONE 40 mg PO DAILY #8 tablet Home Medications: Budesonide/Formoterol 80/4.5 [Symbicort 80/4.5] 2 puff IH BID 10/04/15 [History ] CloNIDine HCl 0.1 mg PO BID 10/04/15 [History] Docusate [Colace] 100 mg PO BID #0 10/04/15 [History] Lisinopril [Zestril] 40 mg PO DAILY 10/04/15 [History] Metoprolol [Lopressor] 50 mg PO BID 10/04/15 [History] Montelukast [Singulair] 10 mg PO QPM 10/04/15 [History] Paroxetine [Paxil] 40 mg PO DAILY 10/04/15 [History] Trazodone HCl [TraZODone] 100 mg PO QPM 10/04/15 [History] Dicyclomine [Bentyl] 20 mg PO QID PRN #40 capsule 01/02/16 [Rx] Gabapentin [Neurontin] 300 mg PO BID 10/05/16 [History] Naltrexone Microspheres [Vivitrol] 380 mg IM QMONTH 10/05/16 [History] Omeprazole [PriLOSEC] 20 mg PO DAILY 10/05/16 [History] PredniSONE 40 mg PO DAILY #8 tablet 10/07/16 [Rx] Allergies/Adverse Reactions: Allergies acetaminophen [From Vicodin] Allergy (Verified 10/03/15 18:47) Nausea hydrocodone [From Vicodin] Allergy (Verified 10/03/15 18:47) Nausea Sulfa (Sulfonamide Antibiotics) Allergy (Verified 10/03/15 18:47) Blister Procedures/tests Complete & Pending: Procedures Performed prior 72 hours Category Date Time Status MR abdomen wo con [MR] Routine MRI 10/06/16 13:55 Completed Date of admission: 10/05/16 19:22 Primary care physician: PCP NO Consults: 10/05/16 19:29 Consult to Gastroenterology [CONS] Routine Consulting Provider: Bennett Mcmillan Reason for Consult: epigastric pain, weight loss, Call Completed: Yes Discharging clinician: Toshia Gentile Anticipated date of discharge: 10/07/16 - Patient Status Disposition: Home, Self-Care Condition: Fair Functional capacity at discharge: independent ambulation Overall status at discharge: patient is back to baseline - Discharge Instructions Follow Up With: Savi Padilla MD [Non-Partnered Physician] - 10/13/16 10:00 am (Please follow up as schedule...) - Diet and Activity Activity: resume usual activities as tolerated Diet: advance to your usual diet Interval History: Ms. Fleming is a 56 year old female with PMH of hypertension, COPD, essential tremors, vulvar ca s/p resection who presents to the ER for evaluation of severe abdominal pain and worsening shortness of breath. Patient is not completely aware of her medical history but states she is able to take care of her daily ADLs and is able to get to the doctors appointments by herself. She states she has had chronic diarrhea for months, however for the last few days she has had worsening localized epigastric pain. Unable to characterize the pain and reports of noticing weight loss in the last few months. No prior EGD or colonoscopy is reported. She was also noted to be in severe respiratory distress in the ER requiring bipap support. At this time she is resting in bed, states she feels better since admission. Reports of nausea but denies any vomiting, hematochezia, melena, or any hemoptysis. She reports of having history of heart burn and is currently on Prilosec. She denies any headache, chest pain, palpitations, sob, fever, or chills at this time. PMH: COPD, HTN, anxiety, Essential tremors, Vulvar Ca Social hx: Everyday smoker-2ppd x 30+years, everyday marijuana use, occasional alcohol use Hospital course: She was admitted for epigastric pain, was continued on PPI, GI was consulted for EGD to rule out esophagitis,gastritis, duodenitis, PUD, MW tear, or AVM. She was kept on pain medications and EGD was done, which did not show any acute pathology. She also had an abdominal MRI to rule out any abdominal pathology, however no acute pathology was noted on MRI as well. She is being discharged on Bentyl to be taken when necessary. We will continue Prilosec daily as she was doing at home. No pathology identified at this time that is treatable. this was explained to the patient. She was advised to follow-up as outpatient with PCP. She also reports that the inhalers that she takes for her COPD is expensive and this is not affordable. Would recommend her to get social work [email or web address] as outpatient for coverage. she is not on COPD exacerbation around this time and is being discharged in stable condition. Time spent discussing smoking cessation with patient: more than 10 minutes - Time Spent with Patient Total time spent providing and/or coordinating discharge services: Greater than 30 minutes - Constitutional Vitals: Temp Pulse Resp BP Pulse Ox 97.5 F L 53 18 115/65 96 10/07/16 10:43 10/07/16 10:43 10/07/16 10:43 10/07/16 10:43 10/07/16 10:43 General appearance: Present: A&O X 3, no acute distress, obese, answers questions appropriately Exam: General appearance: Present: cooperative, A&O X 3, no acute distress, answers questions appropriately - Head Head exam: Present: atraumatic, normocephalic - Eye Eye exam: Present: normal appearance, sclera anicteric - ENT ENT exam: Present: mucous membranes moist - Neck Neck exam general surgery: Present: normal inspection, trachea midline - Respiratory Respiratory exam: Present: decreased breath sounds, CTAB. Absent: respiratory distress, wheezes - Cardiovascular Cardiovascular exam: Present: RRR, +S1, +S2 - GI/Abdominal GI/Abdominal exam: Present: soft, tenderness (Midepigastric tenderness to palpation), no peritoneal signs. Absent: distended, firm, guarding - Rectal Rectal exam: Present: deferred - Extremities Exam Extremities exam: Present: warm
[2016-10-07] MEDS ORDERED: *HR* Propofol 200 MG/20 ML VIAL IVP ONE (17:43)
[2016-10-07] MEDS ORDERED: Lidocaine -MPF 2% 5 ML VIAL INFILT ONE (17:43)
[2016-10-11 15:07] LABS: Pancreatic Elastase, Fecal 412 ug/g (>=201)
[2016-10-11 15:11] LABS: Calprotectin, Fecal 44 ug/g (<=50)
== END 2016-10-07 17:44 | disposition home or self-care (01) | DRG 191 ==
LOC: EMEROO 14:01 → 2ANU 14:01
PROVIDERS: ADMIT Internal Medicine; ATTEND Internal Medicine Endocrinology, Diabetes & Metabolism
PROC: ENDOEBX (2016-10-06 13:00)

== ENCOUNTER 2017-02-19 00:05 | Observation (INO) ==
[2017-02-19] MEDS ORDERED: *HR* LORazepam 2 MG/ML VIAL IVP ONE ×2 (00:07→00:19)
[2017-02-19] MEDS ORDERED: 0.9 % Sodium Chloride 1,000 ML IVC ONE ×2 (00:08→01:30)
[2017-02-19] MEDS ORDERED: *HR* LORazepam 2 MG/ML VIAL ONE ×2 (00:09→06:14)
[2017-02-19] MEDS ORDERED: Ipratropium/Albuterol Neb 3 ML ONE (00:09)
--- NOTE | 2017-02-19 00:24 | Emergency Department Note ---
Disposition Clinical Impression: Chest pain, rule out acute myocardial infarction Leukocytosis Qualifiers: Leukocytosis type: unspecified Qualified Code(s): D72.829 - Elevated white blood cell count, unspecified Dyspnea Qualifiers: Dyspnea type: unspecified Qualified Code(s): R06.00 - Dyspnea, unspecified Disposition: Admitted As Inpatient Condition: Good Time of Disposition: 02:45 SOB HPI - General Chief Complaint: ED Shortness of Breath/Dyspnea Stated Complaint: amanda Time Seen by Provider: 02/19/17 00:07 Source: patient, EMS Mode of arrival: EMS Limitations: no limitations Nursing Notes Reviewed: Yes Vital Signs Reviewed: Yes - History of Present Illness 57-year-old female presents by EMS for chief complaint of shortness of breath. She notes that this has been worsening over the last 24 hours, but her family states that she has been worsening over the last week or so. She states that it got to the point where it was causing her chest discomfort and she could not breathe this evening so she called 911. She is a history of COPD and has not had resolution despite nebs at home. Her family reports that she has not taken her medications tonight including trazodone and gabapentin. She denies history of heart disease or heart attack. She denies diabetes. She does admit to hypertension. She denies any chest pain radiating to her back, neurodeficits, vomiting. She denies any GI or symptoms, rashes or edema. No history of DVT or PE. No recent surgery or immobilization. Following or tenderness. - Related Data Home Medications Medication Instructions Recorded Confirmed Budesonide/Formoterol 80/4.5 2 puff IH BID 10/04/15 10/05/16 [Symbicort 80/4.5] Docusate [Colace] 100 mg PO BID #0 10/04/15 10/05/16 Lisinopril [Zestril] 40 mg PO DAILY 10/04/15 10/05/16 Metoprolol [Lopressor] 50 mg PO BID 10/04/15 10/05/16 Montelukast [Singulair] 10 mg PO QPM 10/04/15 10/05/16 Paroxetine [Paxil] 40 mg PO DAILY 10/04/15 10/05/16 Trazodone HCl [TraZODone] 100 mg PO QPM 10/04/15 10/05/16 cloNIDine HCl [CloNIDine HCl] 0.1 mg PO BID 10/04/15 10/05/16 Gabapentin [Neurontin] 300 mg PO BID 10/05/16 10/05/16 Naltrexone Microspheres [Vivitrol] 380 mg IM QMONTH 10/05/16 10/05/16 Omeprazole [PriLOSEC] 20 mg PO DAILY 10/05/16 10/05/16 Previous Rx's Medication Instructions Recorded Dicyclomine [Bentyl] 20 mg PO QID PRN #40 capsule 01/02/16 predniSONE [PredniSONE] 40 mg PO DAILY #8 tablet 10/07/16 Allergies Allergy/AdvReac Type Severity Reaction Status Date / Time acetaminophen [From Vicodin] Allergy Nausea Verified 10/03/15 18:47 hydrocodone [From Vicodin] Allergy Nausea Verified 10/03/15 18:47 Sulfa (Sulfonamide Allergy Blister Verified 10/03/15 18:47 Antibiotics) All systems ED: reviewed and negative except as stated. Past Medical History - Past Medical History Attestation: Yes The following information was validated with the patient. Source: patient Medical history: Reports: cancer, COPD, CVA, other Surgical history: Reports: cholecystectomy, hysterectomy Psychiatric history: Reports: depression RN PRIOR AUTHORIZATION history: Reports: cervical cancer - Social History Smoking Status: Current every day smoker Smokeless Tobacco Status: No Alcohol use: Reports: rarely Drug use: Reports: marijuana, other Physical Exam - Head Head exam: atraumatic, normocephalic, normal inspection - Eye Eye exam: Present: normal appearance, PERRL, EOMI - ENT ENT exam: normal exam, normal oropharynx, mucous membranes moist - Neck Neck exam: Present: normal inspection, full ROM, trachea midline - Chest Chest inspection: Present: normal inspection, symmetric chest wall rise - Respiratory Respiratory exam: Clear to auscultation bilaterally without wheezes rales or rhonchi Cardiovascular Cardiovascular exam: Present: regular rate, normal rhythm, normal heart sounds - Abdominal Exam Abdominal exam: Present: soft, Non-Tender. Absent: tenderness, distention, guarding, rebound, rigidity - Extremities Exam Extremities exam: Present: normal inspection, full ROM - Expanded Lower Extremity Exam Hip/Pelvis exam: Present: normal inspection, full ROM - Back Exam Back exam: Present: normal inspection, full ROM. Absent: tenderness, CVA tenderness (R), CVA tenderness (L) - Neurological Exam Neurological exam: Present: alert, oriented X3, CN II-XII intact. Patient is tremulous. - Psychiatric Psychiatric exam: Anxious. - Skin Skin exam: Present: warm, mild diaphoresis, intact, normal color - General Limitations: no limitations General appearance: alert Course - Reevaluation(s) Reevaluation #1: Unable to completely assess patient due to her shakiness and anxiety. She agrees that she would like to take something for nerves. She was given 1 mg of Ativan IV with partial improvement of her symptoms. She requested more. We are giving an additional 2 mg of IV Ativan. We will continue to assess the patient for acute pulmonary and cardiac findings. Labs are pending. Chest x- ray is normal with radiology review pending. EKG was limited due to motion artifact, but there is no STEMI. Initial EKG showed narrow complex apparently sinus rhythm at 94 with normal axis. No obvious ST elevation or depression. No further interpretation available due to motion artifact. Time: 00:36 Reevaluation #2: Laboratory unable to get blood despite 4 attempts. I performed a right femoral vein blood draw without complications. Repeat EKG was performed after the patient's shakiness had improved somewhat. It showed normal sinus rhythm at 86 with normal axis. No ST elevation or depression. No definite T-wave inversions. He will somewhat limited by motion artifact. Prior EKG from 2016 also showed some motion artifact. Time: 01:00 Reevaluation #3: CT of the chest was negative for acute findings and urinalysis was normal. Lactic acid is slightly elevated at 2.1. Patient has significant leukocytosis at 16.6 with left shift. Her abdominal exam is benign. The cause of her symptoms is not clear at this time. Patient does have some chest pain with risk factors of age and hypertension and tobacco abuse. She will be admitted to the hospitalist for further evaluation and treatment. Accepted by Dr. Douglas Vital Signs Temperature 0 F L 02/19/17 00:06 Pulse Rate 100 02/19/17 00:06 Respiratory Rate 40 02/19/17 00:06 Blood Pressure 152/104 02/19/17 00:06 O2 Sat by Pulse Oximetry 100 02/19/17 00:06 Temperature 98.0 F 05/20/17 02:11 Pulse Rate 84 02/19/17 01:17 Respiratory Rate 20 02/19/17 03:14 Blood Pressure 122/111 02/19/17 03:14 O2 Sat by Pulse Oximetry 96 02/19/17 02:15 Oxygen Delivery Oxygen Delivery Room Air Shortness of Breath/Dyspnea - Lab Data Result diagrams: 02/19/17 00:54 02/19/17 00:54 Lab Results 02/19/17 02/19/17 02/19/17 Range/Units 00:54 00:54 00:54 WBC 16.6 H (4.3-11.1) K/mcL RBC 4.95 (3.82-4.97) M/mcL Hgb 14.9 (11.5-15.4) g/dL Hct 43.2 (35.3-44.9) % MCV 87.3 (83.0-100.0) fL MCH 30.1 (28.0-33.3) pg MCHC 34.5 (31.6-35.5) g/dL RDW 12.9 (11.5-14.5) % Plt Count 329 (140-400) K/mcL MPV 9.1 L (9.4-12.4) fL Immature Gran % 0.5 (0-4) % Seg Neutrophils % 82.5 % Lymphocytes % 13.8 % Monocytes % 2.9 % Eosinophils % 0.1 % Basophils % 0.2 % Neutrophils # 13.7 H (1.6-8.9) K/mcL Lymphocytes # 2.3 (0.6-4.6) K/mcL Monocytes # 0.5 (0.0-1.3) K/mcL Eosinophils # 0.0 (0.0-0.6) K/mcL Basophils # 0.0 (0.0-0.2) K/mcL D-Dimer 665 H (0-500) ng/mLFEU VBG pH (7.32-7.42) pH Units VBG pCO2 (41-51) mmHg VBG pO2 (25-40) mmHg VBG HCO3 (21-27) mEq/L Sodium 141 (136-145) mEq/L Potassium 3.6 (3.5-4.5) mEq/L Chloride 109 (98-109) mEq/L Carbon Dioxide 17 L (19-29) mEq/L BUN 12 (7-20) mg/dL Creatinine 0.99 (0.57-1.11) mg/dL Est GFR ( Amer) > 60 (> 60) Est GFR (Non-Af Amer) 58 L (> 60) BUN/Creatinine Ratio 12 (6-26) Glucose 216 H (70-99) mg/dL Calculated Osmolality 298 (280-300) Lactic Acid (0.5-2.2) mmol/L Calcium 9.6 (8.6-10.8) mg/dL Troponin I (0-0.03) ng/mL B-Natriuretic Peptide (0-100) pg/mL Urine Color (Yellow) Urine Clarity (Clear) Urine pH (5.0-8.0) pH Units Ur Specific Lovejoy (1.010-1.025) Urine Protein (Neg-Trace) mg/dL Urine Glucose (UA) (Normal) mg/dL Urine Ketones (Negative) mg/dL Urine Blood (Negative) Urine Nitrite (Negative) Urine Bilirubin (Negative) Urine Urobilinogen (Normal) mg/dL Ur Leukocyte Esterase (Negative) Urine Microscopic RBC (0-3) per hpf Urine Microscopic WBC (0-3) per hpf Ur Squamous Epith Cells (None-Few) per lpf Urine Bacteria (None-Few) per hpf Hyaline Casts (None-Few) per lpf Urine Mucus (Few) Ur Culture Indicated? (NO) 02/19/17 02/19/17 02/19/17 Range/Units 00:54 00:54 00:54 WBC (4.3-11.1) K/mcL RBC (3.82-4.97) M/mcL Hgb (11.5-15.4) g/dL Hct (35.3-44.9) % MCV (83.0-100.0) fL MCH (28.0-33.3) pg MCHC (31.6-35.5) g/dL RDW (11.5-14.5) % Plt Count (140-400) K/mcL MPV (9.4-12.4) fL Immature Gran % (0-4) % Seg Neutrophils % % Lymphocytes % % Monocytes % % Eosinophils % % Basophils % % Neutrophils # (1.6-8.9) K/mcL Lymphocytes # (0.6-4.6) K/mcL Monocytes # (0.0-1.3) K/mcL Eosinophils # (0.0-0.6) K/mcL Basophils # (0.0-0.2) K/mcL D-Dimer (0-500) ng/mLFEU VBG pH (7.32-7.42) pH Units VBG pCO2 (41-51) mmHg VBG pO2 (25-40) mmHg VBG HCO3 (21-27) mEq/L Sodium (136-145) mEq/L Potassium (3.5-4.5) mEq/L Chloride (98-109) mEq/L Carbon Dioxide (19-29) mEq/L BUN (7-20) mg/dL Creatinine (0.57-1.11) mg/dL Est GFR ( Amer) (> 60) Est GFR (Non-Af Amer) (> 60) BUN/Creatinine Ratio (6-26) Glucose (70-99) mg/dL Calculated Osmolality (280-300) Lactic Acid 2.1 (0.5-2.2) mmol/L Calcium (8.6-10.8) mg/dL Troponin I 0.00 (0-0.03) ng/mL B-Natriuretic Peptide 23 (0-100) pg/mL Urine Color (Yellow) Urine Clarity (Clear) Urine pH (5.0-8.0) pH Units Ur Specific Lovejoy (1.010-1.025) Urine Protein (Neg-Trace) mg/dL Urine Glucose (UA) (Normal) mg/dL Urine Ketones (Negative) mg/dL Urine Blood (Negative) Urine Nitrite (Negative) Urine Bilirubin (Negative) Urine Urobilinogen (Normal) mg/dL Ur Leukocyte Esterase (Negative) Urine Microscopic RBC (0-3) per hpf Urine Microscopic WBC (0-3) per hpf Ur Squamous Epith Cells (None-Few) per lpf Urine Bacteria (None-Few) per hpf Hyaline Casts (None-Few) per lpf Urine Mucus (Few) Ur Culture Indicated? (NO) 02/19/17 02/19/17 Range/Units 00:54 02:10 WBC (4.3-11.1) K/mcL RBC (3.82-4.97) M/mcL Hgb (11.5-15.4) g/dL Hct (35.3-44.9) % MCV (83.0-100.0) fL MCH (28.0-33.3) pg MCHC (31.6-35.5) g/dL RDW (11.5-14.5) % Plt Count (140-400) K/mcL MPV (9.4-12.4) fL Immature Gran % (0-4) % Seg Neutrophils % % Lymphocytes % % Monocytes % % Eosinophils % % Basophils % % Neutrophils # (1.6-8.9) K/mcL Lymphocytes # (0.6-4.6) K/mcL Monocytes # (0.0-1.3) K/mcL Eosinophils # (0.0-0.6) K/mcL Basophils # (0.0-0.2) K/mcL D-Dimer (0-500) ng/mLFEU VBG pH 7.38 (7.32-7.42) pH Units VBG pCO2 35 L (41-51) mmHg VBG pO2 210 H (25-40) mmHg VBG HCO3 20.7 L (21-27) mEq/L Sodium (136-145) mEq/L Potassium (3.5-4.5) mEq/L Chloride (98-109) mEq/L Carbon Dioxide (19-29) mEq/L BUN (7-20) mg/dL Creatinine (0.57-1.11) mg/dL Est GFR ( Amer) (> 60) Est GFR (Non-Af Amer) (> 60) BUN/Creatinine Ratio (6-26) Glucose (70-99) mg/dL Calculated Osmolality (280-300) Lactic Acid (0.5-2.2) mmol/L Calcium (8.6-10.8) mg/dL Troponin I (0-0.03) ng/mL B-Natriuretic Peptide (0-100) pg/mL Urine Color Yellow (Yellow) Urine Clarity Clear (Clear) Urine pH 5.5 (5.0-8.0) pH Units Ur Specific Lovejoy > 1.030 H (1.010-1.025) Urine Protein Trace (Neg-Trace) mg/dL Urine Glucose (UA) Normal (Normal) mg/dL Urine Ketones Trace H (Negative) mg/dL Urine Blood Trace H (Negative) Urine Nitrite Negative (Negative) Urine Bilirubin Negative (Negative) Urine Urobilinogen Normal (Normal) mg/dL Ur Leukocyte Esterase Negative (Negative) Urine Microscopic RBC 3-5 H (0-3) per hpf Urine Microscopic WBC 3-5 H (0-3) per hpf Ur Squamous Epith Cells Many H (None-Few) per lpf Urine Bacteria None Seen (None-Few) per hpf Hyaline Casts Few (None-Few) per lpf Urine Mucus Few (Few) Ur Culture Indicated? NO (NO) Attestation Statement - Attestation Attestation: I, Conor Goddard, examined this patient and my medical decision-making was reviewed with the SYSTEMS ADMIN/PA/Advanced Practice Nurse/Resident Physician. I agree with the documented findings, disposition and treatment plan as described except to the extent set forth below. 57-year-old female presents with concerns of difficulty in breathing. On EMS arrival the patient is tachycardic and diaphoretic with dyspnea. Patient was very anxious during the exam, reporting chest pain but was unable to describe it fully. Initial EKG showed normal sinus rhythm with a rate of 94 but had a poor baseline although it did not show significant evidence of STEMI. Repeat EKG after Ativan showed 86 normal sinus rhythm without evidence of STEMI. Initial troponin was negative. Patient will be admitted to the hospital for further care and evaluation of her chest pain and dyspnea.
[2017-02-19 01:05] LABS: Basophils % 0.2 %; Eosinophils % 0.1 %; Hematocrit 43.2 % (35.3-44.9); Hemoglobin 14.9 g/dL (11.5-15.4); Immature Granulocytes % 0.5 % (0-4); Lymphocytes # 2.3 K/mcL (0.6-4.6); Lymphocytes % 13.8 %; Mean Corpuscular HGB Conc 34.5 g/dL (31.6-35.5); Mean Corpuscular Hemoglobin 30.1 pg (28.0-33.3); Mean Corpuscular Volume 87.3 fL (83.0-100.0); Mean Platelet Volume 9.1 fL (9.4-12.4); Monocytes # 0.5 K/mcL (0.0-1.3); Monocytes % 2.9 %; Neutrophils # 13.7 K/mcL (1.6-8.9); Platelet Count 329 K/mcL (140-400); Red Blood Count 4.95 M/mcL (3.82-4.97); Red Cell Distribution Width 12.9 % (11.5-14.5); Segmented Neutrophils % 82.5 %
[2017-02-19 01:12] LABS: VBG HCO3 20.7 mEq/L (21-27); VBG PH 7.38 pH Units (7.32-7.42)
[2017-02-19 01:19] LABS: BUN/Creatinine Ratio 12 (6-26); Blood Urea Nitrogen 12 mg/dL (7-20); Calcium 9.6 mg/dL (8.6-10.8); Carbon Dioxide 17 mEq/L (19-29); Chloride 109 mEq/L (98-109); Glucose 216 mg/dL (70-99); Osmolality,Calculated 298 (280-300); Potassium 3.6 mEq/L (3.5-4.5); Sodium 141 mEq/L (136-145); eGFR For African Americans > 60 (> 60); eGFR For Non-African Americans 58 (> 60)
[2017-02-19 02:23] LABS: Bilirubin,Urine Negative (Negative); Blood,Urine Trace (Negative); Clarity,Urine Clear (Clear); Color,Urine Yellow (Yellow); Glucose,Urine (UA) Normal (Normal); Ketones,Urine Trace mg/dL (Negative); Leukocyte Esterase,Urine Negative (Negative); Nitrite,Urine Negative (Negative); PH,Urine 5.5 pH Units (5.0-8.0); Protein,Urine Trace mg/dL (Neg-Trace); Specific Gravity,Urine > 1.030 (1.010-1.025); Urobilinogen,Urine Normal (Normal)
[2017-02-19 02:25] LABS: Bacteria,Urine None Seen per hpf (None-Few); Squamous Epithelial Cell,Urine Many per lpf (None-Few)
[2017-02-19] MEDS ORDERED: Ondansetron 4 MG/2 ML VIAL IVP ONE (02:26)
[2017-02-19 02:35] LABS: Hyaline Casts,Urine Few per lpf (None-Few); Mucus,Urine Few (Few)
[2017-02-19] MEDS ORDERED: Ondansetron 4 MG/2 ML VIAL IVP PRN (03:34)
[2017-02-19] MEDS ORDERED: Naloxone 0.4 MG/ML INJ IVP PRN (03:34)
[2017-02-19] MEDS ORDERED: Ipratropium/Albuterol Neb 3 ML IH PRN (03:39)
--- NOTE | 2017-02-19 03:43 | Internal Med History&Physical ---
Date of Encounter: 02/19/17 Time of Encounter: 03:41 Assessment and Plan (1) Epigastric abdominal pain Current visit: Yes Status: Acute Unclear etiology but likely related to acute on chronic gastritis and Marijuana use and smoking. Admitted 4 months ago with similar complaints and underwent EGD showing abnormal GE junction mucosa and pathology reporting intestinal metaplasia s/o- Martin's esophagus and chronic gastritis. Supportive care with IV hydration, PRN Zofran and clear liquids as tolerated; (2) Dyspnea Current visit: Yes Status: Acute unclear etiology. Does not appear dyspneic on objective assessment; noted to be saturating well on room air. Chest XRay and CTA chest show no acute abnormality , no PE. Qualifiers: Dyspnea type: unspecified Qualified Code(s): R06.00 - Dyspnea, unspecified (3) Metabolic acidosis Current visit: Yes Status: Acute maybe due to GI losses. Continue IV hydration and monitor serum bicarb and creatinine closely; (4) Nausea & vomiting Current visit: Yes Status: Acute likely related to use of Marijuana and underlying acute on chronic gastritis. Leukocytosis is likely due to refractory vomiting, will defer antibiotics for now. Supportive care with IV hydration, PRN IV Zofran and ACHS Reglan. Gastroparesis less likely due to no h/o- DM, intermittent vomiting only. Patient educated regarding Marijuana, states knowledge but unwilling to quit; Qualifiers: Vomiting type: cyclical vomiting Vomiting Intractability: intractable Qualified Code(s): G43.A1 - Cyclical vomiting, intractable (5) COPD (chronic obstructive pulmonary disease) Current visit: Yes Status: Chronic does not appear to be in acute exacerbation. Continue scheduled bronchodilators along with PRN supplemental O2; inhaled corticosteroids; Qualifiers: COPD type: unspecified COPD Qualified Code(s): J44.9 - Chronic obstructive pulmonary disease, unspecified (6) Tobacco abuse Current visit: Yes Status: Chronic Patient not motivated to quit smoking at this time; will order Nicotine transdermal patch; (7) Hypertension Current visit: Yes Status: Chronic Qualifiers: Hypertension type: essential hypertension Qualified Code(s): I10 - Essential (primary) hypertension Internal Medicine - H&P: HPI Chief complaint: Nausea, epigastric pain, SOB Admitted From: Emergency Dept Plans for Post Hospital Care: Home History of present illness: Ms. Fleming is a 57 year old female Past Med Surg Social Fam HX - Past Medical History Medical history: cancer, COPD, CVA, hypertension, other Psychiatric history: anxiety, depression - Past Surgical History Surgical History: cholecystectomy, hysterectomy, other (surgery for vulvar cancer) - Social History Smoking Status: Current every day smoker Packs per day: 2 Smokeless Tobacco Status: No Alcohol use: rarely Drug use: marijuana, other Occupational status: disabled Current living situation: Home, With Family Activity Level: Independent ambulation Recent Out of Country Travel Within the Last 8 Weeks: No Exposure or Possible Exposure to Illness During Travel: No - Family History Father Living Status: Hx Family Cancer: Yes (esophogeal cancer) Internal Medicine - H&P: Meds Budesonide/Formoterol 80/4.5 [Symbicort 80/4.5] 2 puff IH BID 10/04/15 [History ] Docusate [Colace] 100 mg PO BID #0 10/04/15 [History] Lisinopril [Zestril] 40 mg PO DAILY 10/04/15 [History] Metoprolol [Lopressor] 50 mg PO BID 10/04/15 [History] Montelukast [Singulair] 10 mg PO QPM 10/04/15 [History] Paroxetine [Paxil] 40 mg PO DAILY 10/04/15 [History] Trazodone HCl [TraZODone] 100 mg PO QPM 10/04/15 [History] cloNIDine HCl [CloNIDine HCl] 0.1 mg PO BID 10/04/15 [History] Dicyclomine [Bentyl] 20 mg PO QID PRN #40 capsule 01/02/16 [Rx] Gabapentin [Neurontin] 300 mg PO BID 10/05/16 [History] Naltrexone Microspheres [Vivitrol] 380 mg IM QMONTH 10/05/16 [History] Omeprazole [PriLOSEC] 20 mg PO DAILY 10/05/16 [History] predniSONE [PredniSONE] 40 mg PO DAILY #8 tablet 10/07/16 [Rx] Allergies acetaminophen [From Vicodin] Allergy (Verified 10/03/15 18:47) Nausea hydrocodone [From Vicodin] Allergy (Verified 10/03/15 18:47) Nausea Sulfa (Sulfonamide Antibiotics) Allergy (Verified 10/03/15 18:47) Blister All Systems PM: A 10-system review of systems was performed and is negative for pertinent findings except as documented above in the HPI. - Constitutional Constitutional: anorexia, chills - EENT Eyes: no change in vision, no discharge, no pain, no photophobia Ears: no ear discharge, no ear pain, no tinnitus Nose, mouth and throat: no dysphagia, no nasal discharge, no neck pain, no sore throat - Cardiovascular Cardiovascular ROS IM: dyspnea, dyspnea on exertion - Respiratory Respiratory: cough, dyspnea, dyspnea on exertion, change in phlegm color - Gastrointestinal Gastrointestinal: abdominal pain, diarrhea, heartburn, nausea, vomiting - Genitourinary Genitourinary: no change in urinary stream, no dysuria, no flank pain, no hematuria - Musculoskeletal Musculoskeletal ROS IM: no numbness, no tingling - Integumentary Integumentary IM: no rash, no unusual bruising - Neurological Neurological ROS: no confusion, no convulsions, no focal weakness, no numbness, no tingling, no tremor(s) - Hematologic/Lymphatic Hematologic/Lymphatic: no easy bruising - Constitutional Vitals: Temp Pulse Resp BP Pulse Ox 98.0 F 84 20 122/111 96 02/19/17 02:11 02/19/17 01:17 02/19/17 03:14 02/19/17 03:14 02/19/17 02:15 General appearance: Present: cooperative (uncooperative with exam in general as she wants to rest/sleep), disheveled, mild distress, A&O X 3 (tremors of head and body) - ENT Additional comments: poor dentition/oral hygiene - Respiratory Respiratory exam: Present: CTAB. Absent: accessory muscle use, rales, rhonchi, wheezes - Cardiovascular Cardiovascular exam: Present: RRR, +S1, +S2. Absent: diastolic murmur, gallop, rubs, systolic murmur - GI/Abdominal GI/Abdominal exam: Present: normal bowel sounds, soft (mild epigastric tenderness), no peritoneal signs. Absent: distended, tenderness - Extremities Exam Extremities exam: Present: full ROM, warm, radial pulses palpable and symetrical. Absent: calf tenderness, cyanotic, pedal edema - Neurological Exam Neurological exam: Present: CN II-XII intact, oriented X3, no focal deficits. Absent: pronater drift, facial droop, speech deficit - Skin Skin exam: Present: dry, intact Internal Med - H&P Results - Labs CBC & Chem 7: 02/19/17 00:54 02/19/17 00:54 - EKG Data -: EKG Interpreted by Myself EKG shows normal: sinus rhythm, ST-T waves (nonspecific abnormalities, artifacts due to movement) Rate: normal
[2017-02-19] MEDS: Pantoprazole 40 MG VIAL IVP SCH (04:16)
[2017-02-19] MEDS: traZODone 50 MG TABLET PO SCH ×2 (04:23→21:45)
[2017-02-19] MEDS: 0.9 % Sodium Chloride 1,000 ML IVC SCH ×2 (04:25→23:00)
[2017-02-19 05:22] LABS: Amphetamine Screen,Urine Negative ng/mL (Cutoff=1000); Benzodiazepines Screen,Urine Negative ng/mL (Cutoff=200); Cannabinoid Screen,Urine Positive ng/mL (Cutoff = 50); Cocaine Screen,Urine Negative ng/mL (Cutoff= 300); Opiate Screen,Urine Positive ng/mL (Cutoff=300); Phencyclidine Screen,Urine Negative ng/mL (Cutoff=25)
[2017-02-19 05:24] LABS: Barbiturate Screen,Urine Positive ng/mL (Cutoff=200)
[2017-02-19] MEDS ORDERED: *HR* LORazepam 2 MG/ML VIAL IVP PRN (06:11)
[2017-02-19 06:13] LABS: Basophils % 0.1 %; Hematocrit 41.3 % (35.3-44.9); Immature Granulocytes % 0.5 % (0-4); Lymphocytes # 0.9 K/mcL (0.6-4.6); Lymphocytes % 6.2 %; Mean Corpuscular HGB Conc 33.9 g/dL (31.6-35.5); Mean Corpuscular Hemoglobin 30.4 pg (28.0-33.3); Mean Corpuscular Volume 89.8 fL (83.0-100.0); Mean Platelet Volume 9.4 fL (9.4-12.4); Monocytes # 0.2 K/mcL (0.0-1.3); Monocytes % 1.4 %; Neutrophils # 13.4 K/mcL (1.6-8.9); Platelet Count 262 K/mcL (140-400); Segmented Neutrophils % 91.8 %
[2017-02-19] MEDS ORDERED: Water for inj. (sterile) 10 ML IV ONE (06:14)
[2017-02-19 06:31] LABS: BUN/Creatinine Ratio 14 (6-26); Blood Urea Nitrogen 11 mg/dL (7-20); Calcium 8.9 mg/dL (8.6-10.8); Carbon Dioxide 17 mEq/L (19-29); Chloride 113 mEq/L (98-109); Glucose 184 mg/dL (70-99); Magnesium 1.1 mg/dL (1.6-2.6); Osmolality,Calculated 300 (280-300); Phosphorous 2.4 mg/dL (2.3-4.7); Potassium 4.1 mEq/L (3.5-4.5); Sodium 143 mEq/L (136-145); eGFR For African Americans > 60 (> 60); eGFR For Non-African Americans > 60 (> 60)
[2017-02-19] MEDS: Gabapentin 300 MG CAPSULE PO SCH ×2 (08:33→21:45)
[2017-02-19] MEDS: Metoclopramide 10 MG/2 ML VIAL IVP SCH ×4 (08:33→21:45)
[2017-02-19] MEDS: cloNIDine HCl 0.1 MG TABLET PO SCH ×2 (08:33→21:45)
[2017-02-19] MEDS ORDERED: Magnesium Sulfate 2 GM in D5% in Water 100 ML IVPB ONE (10:14)
--- NOTE | 2017-02-19 10:17 | Event Note ---
Date of Encounter: 02/19/17 Time of Encounter: 09:15 Patient seen and examined. On examination, patient is asleep. She awakens easily to voice and denies pain at this time. Once awake, she is noted to have full body tremors but remains oriented 3. Patient stating that her body was tremors like this and she does not know why. Chest x-ray negative. CTA negative. Leukocytosis and tachycardia noted. Hypomagnesemia noted. Urinalysis negative. Tox screen positive for opiates, barbiturates, and marijuana. Patient just had an EGD per Dr. Corona on 10/06/16 which was normal. Patient stating she has not had her breakfast yet and has to be left alone so that she can continue to sleep. She also denies shortness of breath above her norm. She is currently tolerating room air. Metabolic acidosis noted- will continue IVF and recheck labs in am. Regarding her nausea and vomiting, patient with heavy history of marijuana abuse, suspect cyclical vomiting syndrome. Patient did not want to discuss any type of smoking cessation. Continue clear liquid diet advance as tolerated. ITS Impressions Chest X-Ray 02/19/17 00:08 IMPRESSION: No acute cardiopulmonary disease D/ / Julien Lucia MD / Julien Lucia MD Interpreting Provider: Julien Lucia MD Chest CTA 02/19/17 01:31 IMPRESSION: No evidence of pulmonary embolism or acute pulmonary abnormality. D/ / Keeley Garnett MD / Keeley Garnett MD Interpreting Provider: Keeley Garnett MD
[2017-02-19] MEDS: Budesonide/Formoterol 80/4.5 MDI IH SCH ×2 (10:45→19:54)
[2017-02-20 03:53] LABS: Basophils % 0.4 %; Eosinophils % 0.1 %; Hematocrit 34.2 % (35.3-44.9); Hemoglobin 11.5 g/dL (11.5-15.4); Immature Granulocytes % 0.2 % (0-4); Lymphocytes # 2.3 K/mcL (0.6-4.6); Lymphocytes % 28.5 %; Mean Corpuscular HGB Conc 33.6 g/dL (31.6-35.5); Mean Corpuscular Hemoglobin 29.9 pg (28.0-33.3); Mean Corpuscular Volume 89.1 fL (83.0-100.0); Mean Platelet Volume 9.4 fL (9.4-12.4); Monocytes # 0.6 K/mcL (0.0-1.3); Monocytes % 7.3 %; Neutrophils # 5.2 K/mcL (1.6-8.9); Platelet Count 247 K/mcL (140-400); Red Blood Count 3.84 M/mcL (3.82-4.97); Red Cell Distribution Width 13.5 % (11.5-14.5); Segmented Neutrophils % 63.5 %
[2017-02-20 04:08] LABS: BUN/Creatinine Ratio 11 (6-26); Blood Urea Nitrogen 8 mg/dL (7-20); Calcium 8.3 mg/dL (8.6-10.8); Carbon Dioxide 23 mEq/L (19-29); Chloride 114 mEq/L (98-109); Glucose 88 mg/dL (70-99); Magnesium 1.8 mg/dL (1.6-2.6); Osmolality,Calculated 294 (280-300); Potassium 3.8 mEq/L (3.5-4.5); Sodium 143 mEq/L (136-145); eGFR For African Americans > 60 (> 60); eGFR For Non-African Americans > 60 (> 60)
[2017-02-20] MEDS: Pantoprazole 40 MG VIAL IVP SCH (05:55)
[2017-02-20] MEDS: 0.9 % Sodium Chloride 1,000 ML IVC SCH (06:43)
[2017-02-20] MEDS: Gabapentin 300 MG CAPSULE PO SCH (09:12)
[2017-02-20] MEDS: cloNIDine HCl 0.1 MG TABLET PO SCH (09:12)
[2017-02-20] MEDS: Metoclopramide 10 MG/2 ML VIAL IVP SCH (09:12)
[2017-02-20] MEDS: Budesonide/Formoterol 80/4.5 MDI IH SCH (10:40)
--- NOTE | 2017-02-20 10:51 | Internal Med Progress Note ---
Date of Encounter: 02/20/17 Time of Encounter: 09:00 - Assessment and plan (1) Epigastric abdominal pain Current Visit: Yes Status: Acute Assessment and plan: Patient complaining of epigastric pain and burning. Patient had an EGD on that was normal. We will continue to advance her diet as she tolerates and treat symptomatically. Abdominal exam benign other than mild tenderness to epigastric area. Possible discharge later today or early tomorrow pending clinical outcomes. (2) Nausea & vomiting Current Visit: Yes Status: Acute Assessment and plan: Reglan has been ineffective, will change to ondansetron and Phenergan. Advance her diet as she states she cannot tolerate liquid diet. Given that she smokes marijuana regularly, cyclical vomiting syndrome also possibility. Patient declines counseling or resources at this time. Qualifiers: Vomiting type: cyclical vomiting Vomiting Intractability: intractable Qualified Code(s): G43.A1 - Cyclical vomiting, intractable (3) Tobacco abuse Current Visit: Yes Status: Chronic Assessment and plan: 2 pack per day smoker, declines counseling (4) History of substance abuse Current Visit: No Status: Chronic Assessment and plan: Tox screen positive for opiates, barbiturates, and marijuana. She declines counseling or resources at this time (5) DVT prophylaxis Current Visit: No Status: Acute Assessment and plan: Observation patient. Up ad kellen. (6) Leukocytosis Current Visit: No Status: Resolved Qualifiers: Leukocytosis type: unspecified Qualified Code(s): D72.829 - Elevated white blood cell count, unspecified (7) Hypertension Current Visit: Yes Status: Chronic Assessment and plan: Controlled with only her metoprolol being continued, will continue to trend and continue the rest of her medications. Qualifiers: Hypertension type: essential hypertension Qualified Code(s): I10 - Essential (primary) hypertension (8) COPD (chronic obstructive pulmonary disease) Current Visit: Yes Status: Chronic Assessment and plan: No acute exacerbation. Patient denies shortness of breath above her norm. Qualifiers: COPD type: unspecified COPD Qualified Code(s): J44.9 - Chronic obstructive pulmonary disease, unspecified - Subjective Interval history: Patient seen and examined. On examination, patient sitting upright on the side of her bed. Patient alert and oriented 3 and currently complains of 7/10 burning and pain to her epigastric area. She is endorsing mild shortness of breath but not more so than usual. She states she is unable to tolerate a liquid diet due to nausea and is requesting her diet to be advanced. - Constitutional Vitals: Temp Pulse Resp BP Pulse Ox 97.8 F 77 16 115/76 90 02/20/17 07:07 02/20/17 07:07 02/20/17 10:43 02/20/17 07:07 02/20/17 10:43 General appearance: Present: disheveled, A&O X 3 (tremors of head and body), pleasant, no acute distress, answers questions appropriately - Head Head exam: Present: atraumatic, normocephalic - Eye Eye exam: Present: PERRL, conjuntiva pink, sclera anicteric Pupils: Present: PERRL - Neck Neck exam general surgery: Present: supple, trachea midline. Absent: lymphadenopathy - Respiratory Respiratory exam: Present: decreased breath sounds. Absent: accessory muscle use, rales, respiratory distress, rhonchi, wheezes - Cardiovascular Cardiovascular exam: Present: RRR, +S1, +S2. Absent: diastolic murmur, gallop, rubs, systolic murmur - GI/Abdominal GI/Abdominal exam: Present: normal bowel sounds, soft, tenderness (epigastric), no peritoneal signs. Absent: distended - Extremities Exam Extremities exam: Present: warm, radial pulses palpable and symetrical. Absent : calf tenderness, cyanotic, pedal edema - Neurological Exam Neurological exam: Present: alert, CN II-XII intact, oriented X3, no focal deficits, strengths equal and symetr throughout. Absent: pronater drift, facial droop, speech deficit - Skin Skin exam: Present: dry, intact, pallor, warm Internal Medicine: Result - Labs CBC & Chem 7: 02/20/17 03:19 02/20/17 03:19 Labs: Short CBC 02/20/17 Range/Units 03:19 WBC 8.2 (4.3-11.1) K/mcL Hgb 11.5 D (11.5-15.4) g/dL Hct 34.2 L (35.3-44.9) % Plt Count 247 (140-400) K/mcL Neutrophils # 5.2 (1.6-8.9) K/mcL BMP 02/20/17 03:19 Sodium 143 Potassium 3.8 Chloride 114 H Carbon Dioxide 23 BUN 8 Creatinine 0.70 Glucose 88 Calcium 8.3 L - ABG Interpretation ABG results: PT/INR, D-dimer D-Dimer 665 ng/mLFEU (0-500) H 02/19/17 00:54 Consult Discharge Plan - Plan Referrals: Cyn Izquierdo MD [Primary Care Provider] -
[2017-02-20] MEDS ORDERED: *HR* Promethazine 25 MG/ML VIAL IVP PRN (11:02)
[2017-02-20] MEDS ORDERED: Ondansetron 4 MG/2 ML VIAL IVP PRN (11:02)
[2017-02-20 15:22] VITALS: BP 166/80
--- NOTE | 2017-02-20 17:33 | Discharge Summary ---
Date of Encounter: 02/20/17 Time of Encounter: 09:30 (1230 and 1730) - Discharge Diagnosis (1) Epigastric abdominal pain Priority: Primary Status: Resolved Comments: patient stating her pain has essentially resolved and she has been able to tolerate a regular diet prior to discharge. (2) Nausea & vomiting Priority: Primary Status: Resolved Qualifiers: Vomiting type: cyclical vomiting Vomiting Intractability: intractable Qualified Code(s): G43.A1 - Cyclical vomiting, intractable (3) Cyclical vomiting syndrome Priority: Primary Status: Suspected (4) Tobacco abuse Priority: Secondary Status: Chronic Comments: Declined counseling 2 pack per day smoker (5) History of substance abuse Priority: Secondary Status: Chronic Comments: Tox screen positive for opiates, barbiturates, and marijuana. She declines counseling or resources at this time (6) DVT prophylaxis Priority: Primary Status: Acute Comments: Observation patient. Up ad kellen. (7) Leukocytosis Priority: Primary Status: Resolved Qualifiers: Leukocytosis type: unspecified Qualified Code(s): D72.829 - Elevated white blood cell count, unspecified (8) Hypertension Priority: Secondary Status: Chronic Comments: Controlled with only her metoprolol being continued while admitted. Recommend daily blood pressure checks at home, and following up outpatient. Qualifiers: Hypertension type: essential hypertension Qualified Code(s): I10 - Essential (primary) hypertension (9) COPD (chronic obstructive pulmonary disease) Priority: Secondary Status: Chronic Comments: No acute exacerbation. Patient denies shortness of breath above her normal day of discharge. Qualifiers: COPD type: unspecified COPD Qualified Code(s): J44.9 - Chronic obstructive pulmonary disease, unspecified - Discharge Medications Prescriptions: Ondansetron HCl 4 mg PO Q6H PRN #12 tablet PRN Reason: Nausea And Vomiting Home Medications: Lisinopril [Zestril] 40 mg PO DAILY 10/04/15 [History] Metoprolol [Lopressor] 50 mg PO BID 10/04/15 [History] Montelukast [Singulair] 10 mg PO QPM 10/04/15 [History] Paroxetine [Paxil] 40 mg PO DAILY 10/04/15 [History] Trazodone HCl [TraZODone] 100 mg PO QPM 10/04/15 [History] Gabapentin [Neurontin] 300 mg PO BID 10/05/16 [History] Omeprazole [PriLOSEC] 20 mg PO DAILY 10/05/16 [History] Albuterol Sulfate [Proair Hfa] 1 - 2 puff IH Q6H PRN 02/19/17 [History] Budesonide/Formoterol 160/4.5 [Symbicort 160/4.5] 2 puff IH BID 02/19/17 [ History] Naltrexone HCl [Revia] 50 mg PO DAILY 02/19/17 [History] amLODIPine [Norvasc] 5 mg PO DAILY 02/19/17 [History] Ondansetron HCl 4 mg PO Q6H PRN #12 tablet 02/20/17 [Rx] Allergies/Adverse Reactions: Allergies Sulfa (Sulfonamide Antibiotics) Allergy (Verified 10/03/15 18:47) Blister acetaminophen [From Vicodin] Adverse Reaction (Verified 02/19/17 13:09) Nausea hydrocodone [From Vicodin] Adverse Reaction (Verified 02/19/17 13:09) Nausea Date of admission: 02/19/17 02:52 Primary care physician: Cyn Izquierdo Discharging clinician: Sandra Ackerman Anticipated date of discharge: 02/20/17 - Patient Status Disposition: Home, Self-Care Condition: Good Functional capacity at discharge: independent ambulation Overall status at discharge: patient is back to baseline - Discharge Instructions Follow Up With: Cyn Izquierdo MD [Primary Care Provider] - Additional Instructions: Follow-up with primary care provider within one to 2 weeks - Diet and Activity Activity: increase activity as tolerated Diet: low salt diet Hospital course: Ms. Fleming is a 57 year old female with past medical history of COPD not on home oxygen, CVA, hypertension, cholecystectomy, hysterectomy, anxiety/ depression, heavy 2 pack per day smoker. Patient presented to the emergency department chief complaint of epigastric abdominal pain associated with nausea and vomiting 2 days. Patient reporting sudden onset of epigastric pain associated with nausea and nonbloody, nonbilious vomiting 2 days. She denied fever or chills. She denied hematemesis or melena. She states she has chronic diarrhea. Patient denied chest pain, palpitations, dizziness or syncope. Workup in the emergency department notable for mild leukocytosis. Tox screen positive for opiates, barbiturates, and marijuana. Chest x-ray negative. Chest CTA negative for acute processes. Patient was admitted to the hospitalist service for further evaluation and management. On her first day of admission, patient was groggy and sleepy but gradually became more alert. She remained oriented 3 throughout this admission. She was admitted and observed over the course of one night and on day of discharge, she was able to tolerate a regular diet and her epigastric abdominal pain had resolved. Leukocytosis resolved as well-suspect stress related, no signs of active infection. UA negative. Patient had an EGD in October that was negative. Patient had an upright and steady gait on day of discharge. She was discharged home in stable condition with close outpatient follow-up recommended. Of note, she denied substance abuse or tobacco abuse counseling. ITS Impressions Chest X-Ray 02/19/17 00:08 IMPRESSION: No acute cardiopulmonary disease D/ / Julien Lucia MD / Julien Lucia MD Interpreting Provider: Julien Lucia MD Chest CTA 02/19/17 01:31 IMPRESSION: No evidence of pulmonary embolism or acute pulmonary abnormality. D/ / Keeley Garnett MD / Keeley Garnett MD Interpreting Provider: Keeley Garnett MD - Time Spent with Patient Total time spent providing and/or coordinating discharge services: - Constitutional Vitals: Temp Pulse Resp BP Pulse Ox 98.1 F 67 16 166/80 92 02/20/17 15:21 02/20/17 15:21 02/20/17 15:21 02/20/17 15:21 02/20/17 15:21 General appearance: Present: disheveled, A&O X 3 (tremors of head and body), pleasant, no acute distress, answers questions appropriately - Head Head exam: Present: atraumatic, normocephalic - Eye Eye exam: Present: PERRL, conjuntiva pink, sclera anicteric Pupils: Present: PERRL - Neck Neck exam general surgery: Present: supple, trachea midline. Absent: lymphadenopathy - Respiratory Respiratory exam: Present: decreased breath sounds. Absent: accessory muscle use, rales, respiratory distress, rhonchi, wheezes - Cardiovascular Cardiovascular exam: Present: RRR, +S1, +S2. Absent: diastolic murmur, gallop, rubs, systolic murmur - GI/Abdominal GI/Abdominal exam: Present: normal bowel sounds, soft, no peritoneal signs. Absent: distended, tenderness - Extremities Exam Extremities exam: Present: warm, radial pulses palpable and symetrical. Absent : calf tenderness, cyanotic, pedal edema - Neurological Exam Neurological exam: Present: alert, CN II-XII intact, normal gait, oriented X3, no focal deficits, strengths equal and symetr throughout. Absent: pronater drift, facial droop, speech deficit - Skin Skin exam: Present: dry, intact, normal color, warm
[2017-02-20] MEDS ORDERED: TRAZODONE HCL 100 MG PO SCH (18:00)
--- NOTE | 2017-02-20 20:06 | Electrocardiograph Report ---
[place] [id number] Test Date: 2017-02-19 Pat Name: Cindy Fleming Department: 104 Room: 3B Gender: F Rn Rehabilitation: HARMAN : 1960 Requested By: Cecil Bright Order Number: [id number] Reading MD: Percy Ontiveros MD Measurements Intervals [place] Rate: 86 P: 70 MO: 141 QRS: 5 QRSD: 90 T: 55 QT: 379 QTc: 422 Interpretive Statements SINUS RHYTHM BASELINE ARTIFACT, REPEAT EKG Electronically Signed On 02-20-2017 20:05:41 EDT by Percy Ontiveros MD
[2017-02-21] MEDS ORDERED: Lisinopril 20 MG TABLET PO SCH (09:00)
[2017-02-21] MEDS ORDERED: amLODIPine 5 MG TABLET PO SCH (09:00)
== END 2017-02-20 18:11 | disposition home or self-care (01) ==
LOC: EMEROO 00:05 → 3BNU 00:05
PROVIDERS: ADMIT Internal Medicine; ATTEND Nurse Practitioner Family

== ENCOUNTER 2019-02-25 09:53 | Observation (INO) ==
[2019-02-25] MEDS ORDERED: 0.9 % Sodium Chloride 1,000 ML IVC ONE ×2 (10:07→10:08)
[2019-02-25] MEDS ORDERED: Ondansetron 4 MG/2 ML VIAL IVP ONE (10:09)
[2019-02-25] MEDS ORDERED: Pantoprazole 40 MG VIAL IVP ONE (10:09)
--- NOTE | 2019-02-25 10:13 | Emergency Department Note ---
Disposition Clinical Impression: Epigastric abdominal pain Right lower lobe pneumonia Qualifiers: Pneumonia type: due to unspecified organism Qualified Code(s): J18.1 - Lobar pneumonia, unspecified organism Intractable nausea and vomiting Qualifiers: Vomiting type: unspecified Qualified Code(s): R11.2 - Nausea with vomiting, unspecified Disposition: Admitted As Inpatient Condition: Good Referrals: NONE,PCP [Primary Care Provider] - Forms: ED Satisfaction Letter Time of Disposition: 13:55 General Adult HPI - General Chief complaint: ED Shortness of Breath/Dyspnea Stated complaint: GRETCHEN Time Seen by Provider: 02/25/19 10:00 Source: patient, EMS Limitations: no limitations Nursing Notes Reviewed: Yes Vital Signs Reviewed: Yes - History of Present Illness HPI Narrative: Ms. Fleming is a 59 year old female with history of hld, htn, COPD, anxiety, tobacco use 2ppd, barretts esophagus, hx of vulva cancer, hx of upper extremity dvt, and essential tremor who presents to the ED via EMS with complaint of nausea, dry heaving, and shortness of breath. Patient reports that she has had a couple months of issues with her stomach and nausea. Patient reports vomiting shortly after eating and has had workup with GI, and will be undergoing surgery next month. Patient reports that she last ate anything about 3 days ago and last drank anything around that time as well. Patient reports nausea, dry heaving, no hematemesis. Patient has had some diarrhea as well, no blood in stools. Patient reports her abdominal pain is also unchanged and nonradiating. Patient does reports shortness of breath for the psat couple days, coughing up yellow phlegm, and having sweats and chills as well. Patient still smoking 2 ppd. Denies fevers, headaches, changes in vision or hearing, chest pain or pressure, changes in urination, dysuria, hematuria, loss of sensation, or rash. Generalized weakness throughout her body. Pain Scale: 8 - Related Data Home Medications Medication Instructions Recorded Confirmed Metoprolol [Lopressor] 50 mg PO BID 10/04/15 02/25/19 Gabapentin [Neurontin] 300 mg PO BID 10/05/16 02/25/19 Albuterol Sulfate [Proair Hfa] 1 - 2 puff IH Q6H PRN 02/19/17 02/25/19 amLODIPine [Norvasc] 5 mg PO DAILY 02/19/17 02/25/19 Pantoprazole Sodium [Protonix] 40 mg PO DAILY 12/14/17 02/25/19 cloNIDine HCl [CloNIDine HCl] 0.1 mg PO BID 12/14/17 02/25/19 Budesonide/Formoterol 80/4.5 2 puff IH BIDR 10/05/18 02/25/19 [Symbicort 80/4.5] Cetirizine HCl 10 mg PO DAILY 10/05/18 02/25/19 HydrOXYzine 10 mg PO Q12H PRN 10/05/18 02/25/19 PARoxetine HCl [Paroxetine HCl] 40 mg PO QAM 10/05/18 02/25/19 Trazodone HCl 100 mg PO HS 10/05/18 02/25/19 Montelukast [Singulair] 10 mg PO HS 02/25/19 02/25/19 Allergies Allergy/AdvReac Type Severity Reaction Status Date / Time Sulfa (Sulfonamide Allergy Blister Verified 01/11/19 15:34 Antibiotics) acetaminophen [From Vicodin] AdvReac Nausea Verified 01/11/19 15:34 hydrocodone [From Vicodin] AdvReac Nausea Verified 01/11/19 15:34 Review of Systems: As Per HPI Past Medical History - Past Medical History Medical history: Reports: cancer (vulva cancer), COPD, DVT, hypertension Surgical history: Reports: cholecystectomy, hysterectomy Psychiatric history: Reports: anxiety, depression [employer] history: Reports: cervical cancer - Social History Smoking Status: Current every day smoker Smokeless Tobacco Status: No Alcohol use: Reports: rarely Drug use: Reports: marijuana, other Physical Exam - General General appearance: alert, other (appears in moderate discomfort) - Head Head exam: atraumatic, normocephalic, normal inspection - Eye Eye exam: Present: normal appearance, PERRL, EOMI - ENT ENT exam: normal exam, normal oropharynx, mucous membranes dry, TM's normal bilaterally, normal external ear exam - Neck Neck exam: Present: normal inspection, full ROM, trachea midline. Absent: tenderness, lymphadenopathy - Chest Chest inspection: Present: normal inspection, symmetric chest wall rise. Absent: tenderness - Respiratory Respiratory exam: Present: normal lung sounds bilaterally, prolonged expiratory phase, other (appears to be pursing lips and prolonged expiration) - Cardiovascular Cardiovascular exam: Present: normal rhythm, tachycardia, normal heart sounds - Abdominal Exam Abdominal exam: Present: soft, tenderness, normal bowel sounds. Absent: guarding, rigidity Abdominal tenderness: Present: epigastrium, moderate - Extremities Exam Extremities exam: Present: normal inspection, full ROM, normal capillary refill. Absent: tenderness, pedal edema - Back Exam Back exam: Present: normal inspection, full ROM. Absent: tenderness, CVA tende rness (R), CVA tenderness (L) - Neurological Exam Neurological exam: Present: alert, oriented X3, CN II-XII intact - Psychiatric Psychiatric exam: Present: normal affect, normal mood - Skin Skin exam: Present: warm, intact, normal color, diaphoresis. Absent: rash, erythema Course Vital Signs Temperature 97.9 F 02/25/19 09:55 Pulse Rate 63 02/25/19 09:55 Respiratory Rate 18 02/25/19 09:55 Blood Pressure 126/98 02/25/19 09:55 O2 Sat by Pulse Oximetry 99 02/25/19 09:55 Temperature 97.9 F 02/25/19 09:55 Pulse Rate 63 02/25/19 09:55 Respiratory Rate 18 02/25/19 09:55 Blood Pressure 126/98 02/25/19 09:55 O2 Sat by Pulse Oximetry 99 02/25/19 09:55 Oxygen Delivery Oxygen Delivery Room Air Medical Decision Making - [facility] Narrative Medical decision making narrative: 59 year old female with chronic nausea and epigastric abd pain not eating for last 3 days and some shortness of breath with sweats and chills. Ddx including but not limited to pancreatitis, gastritis, pud, copd exacerbation, pnuemonia, uti, ACS Will obtain labs and imaging, and ekg. Administer iv fluids, antinausea medication, and pantoprazole. Patient found on CXR to have possible pnuemonia. Started rocephin and azithromycin. CT abd/pelvis and CT Chest ordered per Hospitalist recommendation. Admit patient for intractable nausea and pneumonia. Hospitalist aware of unresulted labs and imaging and will follow up with it during admission. 13:45p - Medical Records Medical records reviewed: Yes I reviewed the patient's medical records. Last CT abd 11/2018 unremarkable for actue finginds, diverticulosis, and atheroscloersis, cholecystectomy - Lab Data Lab results reviewed: Yes I reviewed the patient's lab results. Lab results narrative: Laboratory Last Values WBC 7.1 K/mcL (4.3-11.1) 02/25/19 10:52 RBC 4.71 M/mcL (3.82-4.97) 02/25/19 10:52 Hgb 13.5 g/dL (11.5-15.4) 02/25/19 10:52 Hct 41.6 % (35.3-44.9) 02/25/19 10:52 MCV 88.3 fL (83.0-100.0) 02/25/19 10:52 MCH 28.7 pg (28.0-33.3) 02/25/19 10:52 MCHC 32.5 g/dL (31.6-35.5) 02/25/19 10:52 RDW 14.9 % (11.5-14.5) H 02/25/19 10:52 Plt Count 300 K/mcL (140-400) 02/25/19 10:52 MPV 9.2 fL (9.4-12.4) L 02/25/19 10:52 Immature Gran % 0.3 % (0-4) 02/25/19 10:52 Seg Neutrophils % 69.5 % 02/25/19 10:52 22.9 % 02/25/19 10:52 6.6 % 02/25/19 10:52 0.1 % 02/25/19 10:52 0.6 % 02/25/19 10:52 5.0 K/mcL (1.6-8.9) 02/25/19 10:52 1.6 K/mcL (0.6-4.6) 02/25/19 10:52 0.5 K/mcL (0.0-1.3) 02/25/19 10:52 0.0 K/mcL (0.0-0.6) 02/25/19 10:52 0.0 K/mcL (0.0-0.2) 02/25/19 10:52 Sodium 142 mEq/L (136-145) 02/25/19 12:23 Potassium 3.6 mEq/L (3.5-5.1) 02/25/19 12:23 Chloride 107 mEq/L (98-107) 02/25/19 12:23 Carbon Dioxide 25 mEq/L (23-29) 02/25/19 12:23 BUN 10 mg/dL (8-23) 02/25/19 12:23 0.62 mg/dL (0.60-1.20) 02/25/19 12:23 Est GFR ( Amer) > 60 (> 60) 02/25/19 12:23 Est GFR (Non-Af Amer) > 60 (> 60) 02/25/19 12:23 16 (6-26) 02/25/19 12:23 Glucose 104 mg/dL (70-105) 02/25/19 12:23 293 (280-300) 02/25/19 12:23 Lactic Acid 1.3 mmol/L (0.5-2.2) 02/25/19 12:23 Calcium 9.3 mg/dL (8.6-10.3) 02/25/19 12:23 0.4 mg/dL (0.3-1.0) 02/25/19 12:23 0.1 mg/dL (0.0-0.2) 02/25/19 12:23 0.3 mg/dL (0.0-1.2) 02/25/19 12:23 AST 13 Units/L (13-39) 02/25/19 12:23 ALT 8 Units/L (7-52) 02/25/19 12:23 100 Units/L (34-104) 02/25/19 12:23 < 0.03 ng/mL (< 0.04) 02/25/19 10:52 B-Natriuretic Peptide 102 pg/mL (Less than 100) H 02/25/19 10:52 8.3 g/dL (6.4-8.9) 02/25/19 12:23 4.5 g/dL (3.5-5.7) 02/25/19 12:23 3.8 g/dL (2.4-3.5) H 02/25/19 12:23 1.2 (1.1-2.2) 02/25/19 12:23 14 Units/L (11-82) 02/25/19 12:23 Dark Yellow (Yellow) 02/25/19 10:35 Clear (Clear) 02/25/19 10:35 6.0 pH Units (5.0-8.0) 02/25/19 10:35 Ur Specific [place] 1.023 (1.010-1.025) 02/25/19 10:35 30 mg/dL (Neg-Trace) H 02/25/19 10:35 Normal mg/dL (Normal) 02/25/19 10:35 15 mg/dL (Negative) H 02/25/19 10:35 Negative (Negative) 02/25/19 10:35 Negative (Negative) 02/25/19 10:35 Small (Negative) H 02/25/19 10:35 Normal mg/dL (Normal) 02/25/19 10:35 Ur Leukocyte Esterase Negative (Negative) 02/25/19 10:35 5-15 per hpf (0-3) H 02/25/19 10:35 3-5 per hpf (0-3) H 02/25/19 10:35 Ur Squamous Epith Cells Many per lpf (None-Few) H 02/25/19 10:35 Few per hpf (None-Few) 02/25/19 10:35 Hyaline Casts None Seen per lpf (None-Few) 02/25/19 10:35 Ur Culture Indicated? YES (NO) A 02/25/19 10:35 Hemolyzed 02/25/19 11:41 Result diagrams: 02/25/19 10:52 02/25/19 12:23 Lab Results 02/25/19 02/25/19 02/25/19 Range/Units 10:35 10:52 10:52 WBC 7.1 (4.3-11.1) K/mcL RBC 4.71 (3.82-4.97) M/mcL Hgb 13.5 (11.5-15.4) g/dL Hct 41.6 (35.3-44.9) % MCV 88.3 (83.0-100.0) fL MCH 28.7 (28.0-33.3) pg MCHC 32.5 (31.6-35.5) g/dL RDW 14.9 H (11.5-14.5) % Plt Count 300 (140-400) K/mcL MPV 9.2 L (9.4-12.4) fL Immature Gran % 0.3 (0-4) % Seg Neutrophils % 69.5 % Lymphocytes % 22.9 % Monocytes % 6.6 % Eosinophils % 0.1 % Basophils % 0.6 % Neutrophils # 5.0 (1.6-8.9) K/mcL Lymphocytes # 1.6 (0.6-4.6) K/mcL Monocytes # 0.5 (0.0-1.3) K/mcL Eosinophils # 0.0 (0.0-0.6) K/mcL Basophils # 0.0 (0.0-0.2) K/mcL Sodium Cancelled Potassium Cancelled Chloride Cancelled Carbon Dioxide Cancelled BUN Cancelled Creatinine Cancelled Est GFR ( Amer) Cancelled Est GFR (Non-Af Amer) Cancelled BUN/Creatinine Ratio Cancelled Glucose Cancelled Calculated Osmolality Cancelled Lactic Acid (0.5-2.2) mmol/L Calcium Cancelled Total Bilirubin Cancelled Direct Bilirubin Cancelled Indirect Bilirubin Cancelled AST Cancelled ALT Cancelled Alkaline Phosphatase Cancelled Troponin I < 0.03 (< 0.04) ng/mL B-Natriuretic Peptide (Less than 100) pg/mL Serum Total Protein Cancelled Albumin Cancelled Globulin Cancelled Albumin/Globulin Ratio Cancelled Lipase Cancelled Urine Color Dark Yellow (Yellow) Urine Clarity Clear (Clear) Urine pH 6.0 (5.0-8.0) pH Units Ur Specific [place] 1.023 (1.010-1.025) Urine Protein 30 H (Neg-Trace) mg/dL Urine Glucose (UA) Normal (Normal) mg/dL Urine Ketones 15 H (Negative) mg/dL Urine Blood Negative (Negative) Urine Nitrite Negative (Negative) Urine Bilirubin Small H (Negative) Urine Urobilinogen Normal (Normal) mg/dL Ur Leukocyte Esterase Negative (Negative) Urine Microscopic RBC 5-15 H (0-3) per hpf Urine Microscopic WBC 3-5 H (0-3) per hpf Ur Squamous Epith Cells Many H (None-Few) per lpf Urine Bacteria Few (None-Few) per hpf Hyaline Casts None Seen (None-Few) per lpf Ur Culture Indicated? YES A (NO) Specimen Rejected 02/25/19 02/25/19 02/25/19 Range/Units 10:52 10:52 11:41 WBC (4.3-11.1) K/mcL RBC (3.82-4.97) M/mcL Hgb (11.5-15.4) g/dL Hct (35.3-44.9) % MCV (83.0-100.0) fL MCH (28.0-33.3) pg MCHC (31.6-35.5) g/dL RDW (11.5-14.5) % Plt Count (140-400) K/mcL MPV (9.4-12.4) fL Immature Gran % (0-4) % Seg Neutrophils % % Lymphocytes % % Monocytes % % Eosinophils % % Basophils % % Neutrophils # (1.6-8.9) K/mcL Lymphocytes # (0.6-4.6) K/mcL Monocytes # (0.0-1.3) K/mcL Eosinophils # (0.0-0.6) K/mcL Basophils # (0.0-0.2) K/mcL Sodium Potassium Chloride Carbon Dioxide BUN Creatinine Est GFR ( Amer) Est GFR (Non-Af Amer) BUN/Creatinine Ratio Glucose Calculated Osmolality Lactic Acid 1.1 (0.5-2.2) mmol/L Calcium Total Bilirubin Direct Bilirubin Indirect Bilirubin AST ALT Alkaline Phosphatase Troponin I (< 0.04) ng/mL B-Natriuretic Peptide 102 H (Less than 100) pg/mL Serum Total Protein Albumin Globulin Albumin/Globulin Ratio Lipase Urine Color (Yellow) Urine Clarity (Clear) Urine pH (5.0-8.0) pH Units Ur Specific [place] (1.010-1.025) Urine Protein (Neg-Trace) mg/dL Urine Glucose (UA) (Normal) mg/dL Urine Ketones (Negative) mg/dL Urine Blood (Negative) Urine Nitrite (Negative) Urine Bilirubin (Negative) Urine Urobilinogen (Normal) mg/dL Ur Leukocyte Esterase (Negative) Urine Microscopic RBC (0-3) per hpf Urine Microscopic WBC (0-3) per hpf Ur Squamous Epith Cells (None-Few) per lpf Urine Bacteria (None-Few) per hpf Hyaline Casts (None-Few) per lpf Ur Culture Indicated? (NO) Specimen Rejected Hemolyzed 02/25/19 02/25/19 Range/Units 12:23 12:23 WBC (4.3-11.1) K/mcL RBC (3.82-4.97) M/mcL Hgb (11.5-15.4) g/dL Hct (35.3-44.9) % MCV (83.0-100.0) fL MCH (28.0-33.3) pg MCHC (31.6-35.5) g/dL RDW (11.5-14.5) % Plt Count (140-400) K/mcL MPV (9.4-12.4) fL Immature Gran % (0-4) % Seg Neutrophils % % Lymphocytes % % Monocytes % % Eosinophils % % Basophils % % Neutrophils # (1.6-8.9) K/mcL Lymphocytes # (0.6-4.6) K/mcL Monocytes # (0.0-1.3) K/mcL Eosinophils # (0.0-0.6) K/mcL Basophils # (0.0-0.2) K/mcL Sodium 142 Potassium 3.6 Chloride 107 Carbon Dioxide 25 BUN 10 Creatinine 0.62 Est GFR ( Amer) > 60 Est GFR (Non-Af Amer) > 60 BUN/Creatinine Ratio 16 Glucose 104 Calculated Osmolality 293 Lactic Acid 1.3 (0.5-2.2) mmol/L Calcium 9.3 Total Bilirubin 0.4 Direct Bilirubin 0.1 Indirect Bilirubin 0.3 AST 13 ALT 8 Alkaline Phosphatase 100 Troponin I (< 0.04) ng/mL B-Natriuretic Peptide (Less than 100) pg/mL Serum Total Protein 8.3 Albumin 4.5 Globulin 3.8 H Albumin/Globulin Ratio 1.2 Lipase 14 Urine Color (Yellow) Urine Clarity (Clear) Urine pH (5.0-8.0) pH Units Ur Specific [place] (1.010-1.025) Urine Protein (Neg-Trace) mg/dL Urine Glucose (UA) (Normal) mg/dL Urine Ketones (Negative) mg/dL Urine Blood (Negative) Urine Nitrite (Negative) Urine Bilirubin (Negative) Urine Urobilinogen (Normal) mg/dL Ur Leukocyte Esterase (Negative) Urine Microscopic RBC (0-3) per hpf Urine Microscopic WBC (0-3) per hpf Ur Squamous Epith Cells (None-Few) per lpf Urine Bacteria (None-Few) per hpf Hyaline Casts (None-Few) per lpf Ur Culture Indicated? (NO) Specimen Rejected - Radiology Data Radiology results reviewed: Yes I reviewed the patient's radiology results. Chest X-Ray 05/26/19 10:08 IMPRESSION: Patchy airspace disease in the right lung base that is concerning for a possible infiltrate. Follow up to resolution is suggested. D/ / 02/25/2019 11:36:02 Mohini Lerma MD / sejal Interpreting Provider: Mohini Lerma MD Start on rocephin and azithromycin Attestation Statement - Attestation Attestation: I, Conor Goddard, examined this patient and my medical decision-making was reviewed with the MANAGER OF BUSINESS OPERATIONS/PA/Advanced Practice Nurse/Resident Physician. I agree with the documented findings, disposition and treatment plan as described except to the extent set forth below. 59-year-old female presents emergency Department with concerns of chest pain, difficulty breathing, nausea, vomiting and epigastric pain. Patient states symptoms have been present intermittently over the past few minutes however the past couple days it has significantly worsened. Patient states she is been unable to tolerate by mouth intake over the past few days. During our initial evaluation the patient is diaphoretic anxious and actively vomiting. Patient was given Zofran and then Phenergan in the emergency department with improvement of symptoms. Laboratory evaluation showed significant abnormality however chest x-ray showed a possible lower lobe infiltrate. Patient started on antibiotics will be admitted to the hospitalist for further care and evaluation. CT of the chest was ordered to further evaluate this nodule versus infiltrate.
[2019-02-25 10:43] LABS: Bilirubin,Urine Small (Negative); Blood,Urine Negative (Negative); Clarity,Urine Clear (Clear); Color,Urine Dark Yellow (Yellow); Glucose,Urine (UA) Normal (Normal); Ketones,Urine 15 mg/dL (Negative); Leukocyte Esterase,Urine Negative (Negative); Nitrite,Urine Negative (Negative); Protein,Urine 30 mg/dL (Neg-Trace); Specific Gravity,Urine 1.023 (1.010-1.025); Urobilinogen,Urine Normal (Normal)
[2019-02-25 10:46] LABS: Bacteria,Urine Few per hpf (None-Few); Hyaline Casts,Urine None Seen per lpf (None-Few); Squamous Epithelial Cell,Urine Many per lpf (None-Few)
[2019-02-25 11:12] LABS: Basophils % 0.6 %; Eosinophils % 0.1 %; Hematocrit 41.6 % (35.3-44.9); Hemoglobin 13.5 g/dL (11.5-15.4); Immature Granulocytes % 0.3 % (0-4); Lymphocytes # 1.6 K/mcL (0.6-4.6); Lymphocytes % 22.9 %; Mean Corpuscular HGB Conc 32.5 g/dL (31.6-35.5); Mean Corpuscular Hemoglobin 28.7 pg (28.0-33.3); Mean Corpuscular Volume 88.3 fL (83.0-100.0); Mean Platelet Volume 9.2 fL (9.4-12.4); Monocytes # 0.5 K/mcL (0.0-1.3); Monocytes % 6.6 %; Platelet Count 300 K/mcL (140-400); Red Blood Count 4.71 M/mcL (3.82-4.97); Red Cell Distribution Width 14.9 % (11.5-14.5); Segmented Neutrophils % 69.5 %
[2019-02-25] MEDS ORDERED: *HR* Promethazine 25 MG/ML VIAL IVP ONE (11:21)
[2019-02-25] MEDS ORDERED: Metoclopramide 10 MG/2 ML VIAL IVP ONE (12:11)
[2019-02-25] MEDS ORDERED: Azithromycin 500 MG in D5% in Water 250 ML IVPB ONE (12:45)
[2019-02-25] MEDS ORDERED: cefTRIAXone 1,000 MG in Water for inj. (sterile) 20 ML 10 ML IVP ONE (12:45)
[2019-02-25 12:51] LABS: Alanine Aminotransferase 8 Units/L (7-52); Albumin 4.5 g/dL (3.5-5.7); Albumin/Globulin Ratio 1.2 (1.1-2.2); Alkaline Phosphatase 100 Units/L (34-104); Aspartate Amino Transferase 13 Units/L (13-39); BUN/Creatinine Ratio 16 (6-26); Bilirubin,Direct 0.1 mg/dL (0.0-0.2); Bilirubin,Indirect 0.3 mg/dL (0.0-1.2); Bilirubin,Total 0.4 mg/dL (0.3-1.0); Blood Urea Nitrogen 10 mg/dL (8-23); Calcium 9.3 mg/dL (8.6-10.3); Carbon Dioxide 25 mEq/L (23-29); Chloride 107 mEq/L (98-107); Globulin 3.8 g/dL (2.4-3.5); Glucose 104 mg/dL (70-105); Lipase 14 Units/L (11-82); Osmolality,Calculated 293 (280-300); Potassium 3.6 mEq/L (3.5-5.1); Sodium 142 mEq/L (136-145); Total Protein 8.3 g/dL (6.4-8.9); eGFR For Non-African Americans > 60 (> 60)
[2019-02-25] MEDS ORDERED: *HR* OxyCODONE/APAP 5/325 TABLET PO ONE (13:19)
[2019-02-25] MEDS ORDERED: Naloxone 0.4 MG/ML INJ IVP PRN (13:56)
[2019-02-25] MEDS ORDERED: Ipratropium/Albuterol Neb 3 ML IH PRN (13:59)
[2019-02-25] MEDS ORDERED: Ondansetron 4 MG/2 ML VIAL IVP PRN (14:01)
[2019-02-25] MEDS ORDERED: *HR* LORazepam 2 MG/ML VIAL IVP ONE ×3 (14:06→16:08)
--- NOTE | 2019-02-25 14:23 | Internal Med History&Physical ---
Date of Encounter: 02/25/19 Time of Encounter: 13:40 Internal Medicine - H&P: HPI Chief complaint: shortness of breath Admitted From: Home Plans for Post Hospital Care: Home History of present illness: Ms. Fleming is a 59 year old female with past medical history of RUE DVT(provoked DVT, finished three months of anticoagulation), hypertension, COPD, essential tremors,vulvar cancer status post resection, tobacco abuse, polysubstance abuse who presents to the ER for evaluation of persistent shortness of breath. Patient has chronic history of diffuse abd pain associated with nausea and vomiting for which she is currently going workup with GI and surgery. Pt states for the last week she has been feeling short of breath with a productive cough with yellow sputum. Today she felt her shortness of breath got extremely severe which is what prompted her visit to the ER. ER workup included CXR which is concerning for PNA. She is noted to be extremely anxious during my evaluation, noted to have diffuse tremors, and states she is unable to rest at this time. Reports of having diffuse tremors at baseline. Awaiting CT chest for further evaluation. She denies any chest pain, fever, or chills at this time. Ten point ROS is negative except as listed above. Past Med Surg Social Fam HX - Past Medical History Medical history: cancer (vulva cancer), COPD, DVT, hypertension Additional medical history: Tremors Psychiatric history: anxiety, depression - Past Surgical History Surgical History: cholecystectomy, hysterectomy - Social History Smoking Status: Current every day smoker Smokeless Tobacco Status: No Alcohol use: rarely Drug use: marijuana, other - Family History Father Living Status: Hx Family Cancer: Yes (esophogeal cancer) Internal Medicine - H&P: Meds Metoprolol [Lopressor] 50 mg PO BID 10/04/15 [History] Gabapentin [Neurontin] 300 mg PO BID 10/05/16 [History] Albuterol Sulfate [Proair Hfa] 1 - 2 puff IH Q6H PRN 02/19/17 [History] amLODIPine [Norvasc] 5 mg PO DAILY 02/19/17 [History] Pantoprazole Sodium [Protonix] 40 mg PO BID 12/14/17 [History] cloNIDine HCl [CloNIDine HCl] 0.1 mg PO BID 12/14/17 [History] Budesonide/Formoterol 80/4.5 [Symbicort 80/4.5] 2 puff IH BIDR 10/05/18 [History] Cetirizine HCl 10 mg PO DAILY 10/05/18 [History] HydrOXYzine 10 mg PO Q12H PRN 10/05/18 [History] PARoxetine HCl [Paroxetine HCl] 40 mg PO QAM 10/05/18 [History] Trazodone HCl 100 mg PO HS 10/05/18 [History] Montelukast [Singulair] 10 mg PO HS 02/25/19 [History] Allergy/AdvReac Type Severity Reaction Status Date / Time Sulfa (Sulfonamide Allergy Blister Verified 01/11/19 15:34 Antibiotics) acetaminophen [From Vicodin] AdvReac Nausea Verified 01/11/19 15:34 hydrocodone [From Vicodin] AdvReac Nausea Verified 01/11/19 15:34 All Systems PM: A 10-system review of systems was performed and is negative for pertinent findings except as documented above in the HPI. Review of systems: Ten point ROS is negative except as listed in HPI - Constitutional Vitals: Temp Pulse Resp BP Pulse Ox 97.9 F 63 18 126/98 99 02/25/19 09:55 02/25/19 09:55 02/25/19 09:55 02/25/19 09:55 02/25/19 09:55 Exam: General: No acute distress, AAO x 3, anxious, diffuse tremors HEENT: EOMI, PERRLA, NC/AT, no scleral icterus Respiratory: Decreased breath sounds, no wheezing, no rales Cardiovascular: Regular, Rate, Rhythm, No murmurs GI: Soft, Non tender, non distended, normal bowel sounds Ext: No edema, no tenderness, positive pulses Neuro: AAO x 3, no focal deficits, diffuse tremors Rest of the clinical exam is noncontributory Internal Med - H&P Results - Labs CBC & Chem 7: 02/25/19 10:52 02/25/19 12:23 Labs: Short CBC 02/25/19 Range/Units 10:52 WBC 7.1 (4.3-11.1) K/mcL Hgb 13.5 (11.5-15.4) g/dL Hct 41.6 (35.3-44.9) % Plt Count 300 (140-400) K/mcL Neutrophils # 5.0 (1.6-8.9) K/mcL BMP 02/25/19 02/25/19 10:52 12:23 Sodium Cancelled 142 Potassium Cancelled 3.6 Chloride Cancelled 107 Carbon Dioxide Cancelled 25 BUN Cancelled 10 Creatinine Cancelled 0.62 Glucose Cancelled 104 Calcium Cancelled 9.3 Cardiac Enzymes 02/25/19 Range/Units 10:52 Troponin I < 0.03 (< 0.04) ng/mL Liver Function 02/25/19 02/25/19 Range/Units 10:52 12:23 Total Bilirubin Cancelled 0.4 Direct Bilirubin Cancelled 0.1 AST Cancelled 13 ALT Cancelled 8 Alkaline Phosphatase Cancelled 100 Albumin Cancelled 4.5 Urine 02/25/19 Range/Units 10:35 Urine Color Dark Yellow (Yellow) Urine Clarity Clear (Clear) Urine pH 6.0 (5.0-8.0) pH Units Ur Specific [place] 1.023 (1.010-1.025) Urine Protein 30 H (Neg-Trace) mg/dL Urine Glucose (UA) Normal (Normal) mg/dL - Impressions ITS Impressions Chest X-Ray 02/25/19 10:08 IMPRESSION: Patchy airspace disease in the right lung base that is concerning for a possible infiltrate. Follow up to resolution is suggested. D/ / 02/25/2019 11:36:02 Mohini Lerma MD / sejal Interpreting Provider: Mohini Lerma MD - Summary of Assessment and Plan Summary of Assessment and Plan: Ms. Fleming is a 59 year old female with past medical history of RUE DVT(provoked DVT, finished three months of anticoagulation), hypertension, COPD, essential tremors, vulvar cancer status post resection, tobacco abuse, polysubstance abuse who presents to the ER for evaluation of persistent shortness of breath. Assessment/Plan: 1. Acute respiratory distress likely secondary to right lower lobe pneumonia continue Ceftriaxone and Azithromycin bronchodilator support as needed Mucinex DM BID f/u CT chest currently saturating well on room air, will closely monitor and provide O2 supplementation as needed f/u respiratory infection panel will closely monitor respiratory status 2. COPD not in acute exacerbation continue home meds 3. HTN BP within acceptable range continue home meds closely monitor BP 4. Chronic abd pain/N/V continue home meds anti-emetic support as needed 5. Essential tremors/anxiety continue home meds 6. Tobacco abuse Smoking cessation counseling provided patient refusing to quit refused nicotine supplementation therapy DVT PPX: Lovenox SQ LOS < 2 midnights Care plan discussed with patient/RN - Time Spent With Patient Total time spent is greater than 50% in coordination of care (as documented) at patient's floor/unit and/or counseling patient: 25 - 35 minutes
[2019-02-25] MEDS ORDERED: Haloperidol Lactate 5 MG/ML VIAL IVP ONE (15:19)
[2019-02-25] MEDS ORDERED: Ketorolac 30 MG/ML VIAL IVP ONE (18:00)
[2019-02-25] MEDS: Nicotine 21 MG PATCH.TD24 TD SCH (18:06)
[2019-02-25] MEDS: Budesonide/Formoterol 80/4.5 MDI IH SCH (19:44)
[2019-02-25 19:49] LABS: Adenovirus Not Detected (Not Detect); Bordetella Pertussis Not Detected (Not Detect); Chlamydophila pneumoniae Not Detected (Not Detect); Coronavirus 229E Not Detected (Not Detect); Coronavirus HKU1 Not Detected (Not Detect); Coronavirus NL63 Not Detected (Not Detect); Coronavirus OC43 Not Detected (Not Detect); Human Metapneumovirus Not Detected (Not Detect); Human Rhinovirus/Enterovirus Not Detected (Not Detect); Influenza A Subtype 2009 H1 Not Detected (Not Detect); Influenza A Untypeable Not Detected (Not Detect); Influenza B Not Detected (Not Detect); Mycoplasma pneumoniae Not Detected (Not Detect); Parainfluenza Virus 1 Not Detected (Not Detect); Parainfluenza Virus 2 Not Detected (Not Detect); Parainfluenza Virus 3 Not Detected (Not Detect); Parainfluenza Virus 4 Not Detected (Not Detect); Respiratory Syncytial Virus Not Detected (Not Detect)
[2019-02-25] MEDS ORDERED: traZODone 50 MG TABLET PO SCH (21:00)
[2019-02-25] MEDS: GuaiFENesin/Dextromethorphan TABLET PO SCH (21:00)
[2019-02-25] MEDS: cloNIDine HCl 0.1 MG TABLET PO SCH (21:01)
[2019-02-25] MEDS: Gabapentin 300 MG CAPSULE PO SCH (21:01)
[2019-02-26 02:36] LABS: Amphetamine Screen,Urine Negative ng/mL (Cutoff=1000); Barbiturate Screen,Urine Negative ng/mL (Cutoff=200); Benzodiazepines Screen,Urine Negative ng/mL (Cutoff=200); Cannabinoid Screen,Urine Positive ng/mL (Cutoff = 50); Cocaine Screen,Urine Negative ng/mL (Cutoff= 300); Opiate Screen,Urine Positive ng/mL (Cutoff=300); Phencyclidine Screen,Urine Negative ng/mL (Cutoff=25)
--- NOTE | 2019-02-26 04:05 | Event Note ---
Date of Encounter: 02/25/19 Time of Encounter: 19:13 Alerted by patient's nurse SHELLY Bello that patient had been complaining of bilateral knee and abdomen pain. Abdomen nontender to palpation. Nurse reported patient was extremely restless and had multiple meds in the ER including Ativan, Haldol, Percocet, Toradol, and Benadryl. Went to see patient who was pacing the room and acting oddly. Stat urine tox screen ordered. Patient stated she artery urinating and provided sample but nurse stated this was not true. When necessary bladder scan and one-time straight catheter ordered. Tox screen positive for marijuana and opiates. Sitter placed with patient. Sitter reported that pt. asked her where she could score some Percocets. Will try and manage pts. pain w/non-opioids at this time d/t pts. AMS and behavior suggesting withdrawal. Nurse instructed to continue monitoring pt. very closely and alert me immediately of any adverse changes.
[2019-02-26] MEDS ORDERED: *HR* Enoxaparin 40 MG/0.4 ML SYRINGE SQ SCH (06:00)
[2019-02-26 07:09] LABS: Basophils % 0.4 %; Eosinophils # 0.1 K/mcL (0.0-0.6); Eosinophils % 0.7 %; Hematocrit 35.8 % (35.3-44.9); Immature Granulocytes % 0.1 % (0-4); Lymphocytes # 2.3 K/mcL (0.6-4.6); Mean Corpuscular HGB Conc 32.4 g/dL (31.6-35.5); Mean Corpuscular Hemoglobin 28.6 pg (28.0-33.3); Mean Corpuscular Volume 88.2 fL (83.0-100.0); Mean Platelet Volume 8.7 fL (9.4-12.4); Monocytes # 0.7 K/mcL (0.0-1.3); Monocytes % 8.9 %; Neutrophils # 4.5 K/mcL (1.6-8.9); Platelet Count 253 K/mcL (140-400); Red Blood Count 4.06 M/mcL (3.82-4.97); Red Cell Distribution Width 14.9 % (11.5-14.5); Segmented Neutrophils % 59.9 %
[2019-02-26 07:13] LABS: Hemoglobin 11.6 g/dL (11.5-15.4)
[2019-02-26] MEDS: Budesonide/Formoterol 80/4.5 MDI IH SCH (07:21)
[2019-02-26 07:26] LABS: BUN/Creatinine Ratio 16 (6-26); Blood Urea Nitrogen 10 mg/dL (8-23); Calcium 9.1 mg/dL (8.6-10.3); Carbon Dioxide 25 mEq/L (23-29); Chloride 106 mEq/L (98-107); Chol/HDL Ratio 3.5 (0-4.9); Cholesterol 152 mg/dL (< 200); Glucose 99 mg/dL (70-105); HDL Cholesterol 43 mg/dL (40-59); LDL Cholesterol,Calculated 91 mg/dL (0-99); Magnesium 1.5 mg/dL (1.6-2.6); Osmolality,Calculated 289 (280-300); Phosphorous 3.1 mg/dL (2.7-4.5); Potassium 3.6 mEq/L (3.5-5.1); Sodium 140 mEq/L (136-145); Triglycerides 88 mg/dL (< 150); eGFR For Non-African Americans > 60 (> 60)
[2019-02-26] MEDS: Nicotine 21 MG PATCH.TD24 TD SCH (08:56)
[2019-02-26] MEDS: GuaiFENesin/Dextromethorphan TABLET PO SCH (08:57)
[2019-02-26] MEDS: Gabapentin 300 MG CAPSULE PO SCH (08:57)
[2019-02-26] MEDS: cloNIDine HCl 0.1 MG TABLET PO SCH (08:57)
[2019-02-26] MEDS ORDERED: cefTRIAXone 1,000 MG in Water for inj. (sterile) 20 ML 10 ML IVP SCH (09:00)
[2019-02-26] MEDS ORDERED: amLODIPine 5 MG TABLET PO SCH (09:00)
[2019-02-26] MEDS ORDERED: Azithromycin 250 MG TABLET PO SCH (09:00)
[2019-02-26] MEDS ORDERED: Loratadine 10 MG TABLET PO SCH (09:00)
[2019-02-26 12:06] VITALS: BP 137/77
--- NOTE | 2019-02-26 15:37 | Discharge Summary ---
- NOTES TO OUTPATIENT PROVIDER Notes to Outpatient Provider: Pt was admitted for RLL PNA and is being discharge on oral antibiotics. Orders not resulted at time of discharge: Pending orders 02/25/19 13:35 Culture,Blood [BC] Stat 02/26/19 13:03 CT chest wo con [CT] Stat Date of Encounter: 02/26/19 Time of Encounter: 15:34 - Discharge Diagnosis (1) Right lower lobe pneumonia Priority: Primary Status: Acute Qualifiers: Pneumonia type: due to unspecified organism Qualified Code(s): J18.1 - Lobar pneumonia, unspecified organism (2) Polysubstance abuse Priority: Secondary Status: Chronic (3) History of substance abuse Priority: Secondary Status: Chronic (4) Hypertension Priority: Secondary Status: Chronic Qualifiers: Hypertension type: essential hypertension Qualified Code(s): I10 - Essential (primary) hypertension (5) Tobacco abuse Priority: Secondary Status: Chronic (6) Epigastric abdominal pain Priority: Secondary Status: Chronic Hospital course: Ms. Fleming is a 59 year old female with past medical history of RUE DVT(provoked DVT, finished three months of anticoagulation), hypertension, COPD, essential tremors,vulvar cancer status post resection, tobacco abuse, polysubstance abuse who presents to the ER for evaluation of persistent shortness of breath. She was further found to have right lower lobe pneumonia. She was started on IV abx. She responded well to the this therapy. She continued to have chronic abd pain and she demanded percocet stating she took this medication at home, however pharmacy clinical specialist was unable to verify that medication. She is currently at her baseline respiratory status. She is saturating well on room air. She is seen and examined today and reported of feeling significantly better compared to previous day. She will be discharged to home with outpatient follow up with PCP. Discharge discussed with: patient, nurse Time spent discussing smoking cessation with patient: 3 to 10 minutes - Time Spent with Patient Total time spent providing and/or coordinating discharge services: 35 minutes Time spent: Greater than 30 minutes - Discharge Medications Prescriptions: New levoFLOXacin [Levaquin] 750 mg PO DAILY #3 tablet Continued Metoprolol [Lopressor] 50 mg PO BID Gabapentin [Neurontin] 300 mg PO BID amLODIPine [Norvasc] 5 mg PO DAILY Albuterol Sulfate [Proair Hfa] 1 - 2 puff IH Q6H PRN PRN Reason: Shortness Of Breath cloNIDine HCl [CloNIDine HCl] 0.1 mg PO BID Pantoprazole Sodium [Protonix] 40 mg PO DAILY Budesonide/Formoterol 80/4.5 [Symbicort 80/4.5] 2 puff IH BIDR HydrOXYzine 10 mg PO Q12H PRN PRN Reason: Anxiety Cetirizine HCl 10 mg PO DAILY PARoxetine HCl [Paroxetine HCl] 40 mg PO QAM Trazodone HCl 100 mg PO HS Montelukast [Singulair] 10 mg PO HS Home Medications: Metoprolol [Lopressor] 50 mg PO BID 10/04/15 [History] Gabapentin [Neurontin] 300 mg PO BID 10/05/16 [History] Albuterol Sulfate [Proair Hfa] 1 - 2 puff IH Q6H PRN 02/19/17 [History] amLODIPine [Norvasc] 5 mg PO DAILY 02/19/17 [History] Pantoprazole Sodium [Protonix] 40 mg PO DAILY 12/14/17 [History] cloNIDine HCl [CloNIDine HCl] 0.1 mg PO BID 12/14/17 [History] Budesonide/Formoterol 80/4.5 [Symbicort 80/4.5] 2 puff IH BIDR 10/05/18 [History] Cetirizine HCl 10 mg PO DAILY 10/05/18 [History] HydrOXYzine 10 mg PO Q12H PRN 10/05/18 [History] PARoxetine HCl [Paroxetine HCl] 40 mg PO QAM 10/05/18 [History] Trazodone HCl 100 mg PO HS 10/05/18 [History] Montelukast [Singulair] 10 mg PO HS 02/25/19 [History] levoFLOXacin [Levaquin] 750 mg PO DAILY #3 tablet 02/26/19 [Rx] Allergies/Adverse Reactions: Allergy/AdvReac Type Severity Reaction Status Date / Time Sulfa (Sulfonamide Allergy Blister Verified 01/11/19 15:34 Antibiotics) acetaminophen [From Vicodin] AdvReac Nausea Verified 01/11/19 15:34 hydrocodone [From Vicodin] AdvReac Nausea Verified 01/11/19 15:34 Date of admission: 02/25/19 15:33 Primary care physician: PCP NONE Discharging clinician: Berta Mcguire Anticipated date of discharge: 02/26/19 - Constitutional Vitals: Temp Pulse Resp BP Pulse Ox 96.8 F L 59 16 137/77 98 02/26/19 12:02 02/26/19 12:02 02/26/19 12:02 02/26/19 12:02 02/26/19 12:02 Exam: General: No acute distress, AAO x 3 HEENT: EOMI, NC/AT, no scleral icterus Respiratory: clear to auscultate bilaterally, no wheezing, no rales Cardiovascular: Regular, Rate, Rhythm, No murmurs GI: Soft, Non tender, non distended, normal bowel sounds Ext: No edema, no tenderness, positive pulses Neuro: AAO x 3, no focal deficits Rest of the clinical exam is noncontributory - Patient Status Disposition: Home, Self-Care Condition: Good Functional capacity at discharge: independent ambulation - Discharge Instructions Follow Up With: NONE,PCP [Primary Care Provider] - Additional Instructions: 1. Please follow up with your primary care physician within five days after your discharge from the hospital. 2. Please continue oral antibiotics as prescribed. 3. Smoking cessation is advised 4. Please continue all your home medications as prescribed by your primary care physician. 5. Please seek medical help if you have difficulty breathing or if chest pain occurs - Diet and Activity Activity: increase activity as tolerated Diet: diabetic diet, low fat, low cholesterol
--- NOTE | 2019-02-27 06:26 | Electrocardiograph Report ---
[place] [facility] Test Date: 2019-02-25 Pat Name: Cindy Fleming Department: EXAM9 Room: 3A33 Gender: F Senior Report Developer: : [id number] Requested By: Dirk Walker Order Number: [id number] Reading MD: Cesar Corral Measurements Intervals Clarinda Rate: 65 P: AL: QRS: 61 QRSD: 90 T: 72 QT: 433 QTc: 451 Interpretive Statements SINUS RHYTHM WITH PAC'S Electronically Signed On 02-27-2019 6:25:22 EDT by Cesar Corral
== END 2019-02-26 18:01 | disposition home or self-care (01) ==
LOC: 3ANU 09:53 → EMEROOARM 09:53 → SUATTDRO 15:33 → 3ANU 17:30
PROVIDERS: ADMIT Internal Medicine Nephrology; ATTEND Internal Medicine

== ENCOUNTER 2019-09-21 07:05 | Observation (INO) ==
[2019-09-21] MEDS ORDERED: *HR* FentaNYL (PF) 100 MCG/2 ML VIAL NS ONE (07:28)
[2019-09-21 08:27] LABS: Hematocrit 43.3 % (35.3-44.9); Hemoglobin 14.7 g/dL (11.5-15.4)
[2019-09-21] MEDS ORDERED: *HR* FentaNYL (PF) 100 MCG/2 ML VIAL IVP ONE (08:32)
[2019-09-21 08:41] LABS: Alanine Aminotransferase 15 Units/L (7-52); Albumin 4.4 g/dL (3.5-5.7); Albumin/Globulin Ratio 1.3 (1.1-2.2); Alkaline Phosphatase 128 Units/L (34-104); Aspartate Amino Transferase 12 Units/L (13-39); BUN/Creatinine Ratio 17 (6-26); Bilirubin,Total 0.4 mg/dL (0.3-1.0); Blood Urea Nitrogen 12 mg/dL (8-23); Carbon Dioxide 26 mEq/L (23-29); Chloride 101 mEq/L (98-107); Globulin 3.5 g/dL (2.4-3.5); Glucose 101 mg/dL (70-105); Lipase 12 Units/L (11-82); Osmolality,Calculated 290 (280-300); Potassium 3.5 mEq/L (3.5-5.1); Sodium 140 mEq/L (136-145); Total Protein 7.9 g/dL (6.4-8.9); eGFR For African Americans > 60 (> 60); eGFR For Non-African Americans > 60 (> 60)
[2019-09-21] MEDS ORDERED: Aspirin 81 MG TAB.CHEW PO STA (08:47)
[2019-09-21 09:07] LABS: Troponin I < 0.03 ng/mL (< 0.04)
[2019-09-21] MEDS ORDERED: *HR* FentaNYL (PF) 100 MCG/2 ML VIAL IVP STA (09:21)
[2019-09-21] MEDS ORDERED: Isovue-370 500 ML BOTTLE IVP ONE (10:11)
[2019-09-21] MEDS ORDERED: *HR* HYDROmorphone (PF) 1 MG/ML SYRINGE IVP ONE (10:13)
[2019-09-21] MEDS ORDERED: *HR* HYDROmorphone (PF) 1 MG/ML SYRINGE IVP STA (11:47)
[2019-09-21] MEDS ORDERED: Ondansetron 4 MG/2 ML VIAL IVP PRN (11:54)
[2019-09-21] MEDS ORDERED: Naloxone 0.4 MG/ML INJ IVP PRN (11:54)
[2019-09-21] MEDS ORDERED: Ondansetron ODT 4 MG TAB.RAPDIS SL PRN (11:54)
[2019-09-21] MEDS ORDERED: *HR* Promethazine 25 MG/ML VIAL IVP PRN (11:54)
[2019-09-21 13:28] LABS: Basophils % 0.3 %; Eosinophils % 0.1 %; Hematocrit 47.4 % (35.3-44.9); Immature Granulocytes % 0.2 % (0-4); Lymphocytes % 22.9 %; Mean Corpuscular HGB Conc 33.8 g/dL (31.6-35.5); Mean Corpuscular Hemoglobin 29.7 pg (28.0-33.3); Mean Corpuscular Volume 87.9 fL (83.0-100.0); Mean Platelet Volume 9.5 fL (9.4-12.4); Monocytes # 0.6 K/mcL (0.0-1.3); Monocytes % 6.6 %; Platelet Count 327 K/mcL (140-400); Red Blood Count 5.39 M/mcL (3.82-4.97); Red Cell Distribution Width 15.1 % (11.5-14.5); Segmented Neutrophils % 69.9 %; White Blood Count 8.6 K/mcL (4.3-11.1)
[2019-09-21] MEDS: *HR* OxyCODONE Immed Rel 5 MG TABLET PO PRN ×2 (15:49→20:06)
[2019-09-21] MEDS: cloNIDine HCl 0.1 MG TABLET PO SCH ×2 (15:49→20:06)
[2019-09-21] MEDS: amLODIPine 5 MG TABLET PO SCH (15:49)
[2019-09-21] MEDS: Gabapentin 300 MG CAPSULE PO SCH ×2 (15:49→20:06)
[2019-09-21] MEDS: Nicotine 21 MG PATCH.TD24 TD SCH (15:50)
[2019-09-21] MEDS: Ringers Solution, Lactated 1,000 ML IVC SCH ×2 (15:51→21:15)
[2019-09-21] MEDS ORDERED: traZODone 50 MG TABLET PO SCH (21:00)
[2019-09-21 21:44] LABS: Amphetamine Screen,Urine Negative ng/mL (Cutoff=1000); Barbiturate Screen,Urine Positive ng/mL (Cutoff=200); Benzodiazepines Screen,Urine Negative ng/mL (Cutoff=200); Cannabinoid Screen,Urine Positive ng/mL (Cutoff = 50); Cocaine Screen,Urine Negative ng/mL (Cutoff= 300); Opiate Screen,Urine Positive ng/mL (Cutoff=300); Phencyclidine Screen,Urine Negative ng/mL (Cutoff=25)
[2019-09-22] MEDS: *HR* OxyCODONE Immed Rel 5 MG TABLET PO PRN ×5 (00:16→19:45)
[2019-09-22 01:08] LABS: Adenovirus F 40/41 PCR Not detected (Not detect); Astrovirus PCR Not detected (Not detect); C.difficile Toxin A/B Gene PCR Not detected (Not detect); Campylobacter by PCR Not detected (Not detect); Cryptosporidium by PCR Not detected (Not detect); Cyclospora cayetanensis PCR Not detected (Not detect); E. coli O157 by PCR Not detected (Not detect); Entamoeba histolytica PCR Not detected (Not detect); Enteroaggregative E.coli(EAEC) Not detected (Not detect); Enteropathogenic E.coli(EPEC) Not detected (Not detect); Enterotoxigenic E.coli (ETEC) Not detected (Not detect); Giardia lamblia PCR Not detected (Not detect); Norovirus GI/GII PCR Not detected (Not detect); Plesiomonas shigelloides PCR Not detected (Not detect); Rotavirus A PCR Not detected (Not detect); Salmonella PCR Not detected (Not detect); Sapovirus PCR Not detected (Not detect); Shig/EnteroinvasiveE coli EIEC Not detected (Not detect); Shigalike tox-prod E coli STEC Not detected (Not detect); Vibrio PCR Not detected (Not detect); Vibrio cholerae PCR Not detected (Not detect); Yersinia enterocolitica PCR Not detected (Not detect)
[2019-09-22 05:23] LABS: Basophils % 0.4 %; Eosinophils % 0.3 %; Hematocrit 41.5 % (35.3-44.9); Immature Granulocytes % 0.4 % (0-4); Lymphocytes # 2.2 K/mcL (0.6-4.6); Lymphocytes % 32.3 %; Mean Corpuscular HGB Conc 33.7 g/dL (31.6-35.5); Mean Corpuscular Hemoglobin 29.8 pg (28.0-33.3); Mean Corpuscular Volume 88.3 fL (83.0-100.0); Mean Platelet Volume 9.4 fL (9.4-12.4); Monocytes # 0.5 K/mcL (0.0-1.3); Monocytes % 7.6 %; Platelet Count 277 K/mcL (140-400); Red Cell Distribution Width 15.1 % (11.5-14.5); White Blood Count 6.8 K/mcL (4.3-11.1)
[2019-09-22] MEDS ORDERED: Ipratropium/Albuterol Neb 3 ML ONE (05:34)
[2019-09-22] MEDS: Ipratropium/Albuterol Neb 3 ML IH PRN (05:38)
[2019-09-22 05:43] LABS: BUN/Creatinine Ratio 19 (6-26); Blood Urea Nitrogen 13 mg/dL (8-23); Calcium 8.9 mg/dL (8.6-10.3); Carbon Dioxide 26 mEq/L (23-29); Chloride 104 mEq/L (98-107); Glucose 95 mg/dL (70-105); Osmolality,Calculated 286 (280-300); Potassium 3.2 mEq/L (3.5-5.1); Sodium 138 mEq/L (136-145); eGFR For African Americans > 60 (> 60); eGFR For Non-African Americans > 60 (> 60)
[2019-09-22] MEDS: amLODIPine 5 MG TABLET PO SCH (09:39)
[2019-09-22] MEDS: Loratadine 10 MG TABLET PO SCH (09:40)
[2019-09-22] MEDS: cloNIDine HCl 0.1 MG TABLET PO SCH ×2 (09:40→20:32)
[2019-09-22] MEDS: Gabapentin 300 MG CAPSULE PO SCH ×2 (09:40→20:32)
[2019-09-22] MEDS: Nicotine 21 MG PATCH.TD24 TD SCH (09:41)
[2019-09-22] MEDS ORDERED: Pantoprazole 40 MG VIAL IVP ONE (14:20)
[2019-09-22] MEDS: *HR* Heparin 5,000 UNIT/ML VIAL SQ SCH (18:00)
[2019-09-22] MEDS: Sucralfate 1 GM TABLET PO SCH (20:32)
[2019-09-23] MEDS: *HR* OxyCODONE Immed Rel 5 MG TABLET PO PRN ×6 (00:16→21:42)
[2019-09-23] MEDS: traZODone 50 MG TABLET PO SCH ×2 (00:16→20:41)
[2019-09-23 02:08] LABS: BUN/Creatinine Ratio 15 (6-26); Blood Urea Nitrogen 9 mg/dL (8-23); Calcium 8.6 mg/dL (8.6-10.3); Carbon Dioxide 24 mEq/L (23-29); Chloride 105 mEq/L (98-107); Glucose 107 mg/dL (70-105); Osmolality,Calculated 283 (280-300); Potassium 3.4 mEq/L (3.5-5.1); Sodium 137 mEq/L (136-145); eGFR For African Americans > 60 (> 60); eGFR For Non-African Americans > 60 (> 60)
[2019-09-23] MEDS: *HR* Heparin 5,000 UNIT/ML VIAL SQ SCH ×2 (04:34→17:36)
[2019-09-23] MEDS: Gabapentin 300 MG CAPSULE PO SCH ×2 (09:13→20:41)
[2019-09-23] MEDS: Nicotine 21 MG PATCH.TD24 TD SCH (09:13)
[2019-09-23] MEDS: Ringers Solution, Lactated 1,000 ML IVC SCH (10:01)
[2019-09-23] MEDS: Ipratropium/Albuterol Neb 3 ML IH PRN (11:31)
[2019-09-23] MEDS: Sucralfate 1 GM TABLET PO SCH ×4 (11:58→20:41)
[2019-09-23] MEDS: amLODIPine 5 MG TABLET PO SCH (11:58)
[2019-09-23] MEDS: Loratadine 10 MG TABLET PO SCH (11:58)
[2019-09-23] MEDS: cloNIDine HCl 0.1 MG TABLET PO SCH ×2 (11:58→20:41)
[2019-09-23] MEDS ORDERED: Sucralfate 1 GM TABLET PO SCH (16:30)
[2019-09-24] MEDS: *HR* OxyCODONE Immed Rel 5 MG TABLET PO PRN ×3 (02:51→11:05)
[2019-09-24 05:17] LABS: Hematocrit 41.6 % (35.3-44.9); Hemoglobin 13.6 g/dL (11.5-15.4); Mean Corpuscular HGB Conc 32.7 g/dL (31.6-35.5); Mean Corpuscular Volume 91.8 fL (83.0-100.0); Mean Platelet Volume 8.9 fL (9.4-12.4); Platelet Count 229 K/mcL (140-400); Red Blood Count 4.53 M/mcL (3.82-4.97); Red Cell Distribution Width 15.4 % (11.5-14.5); White Blood Count 4.8 K/mcL (4.3-11.1)
[2019-09-24 05:36] LABS: BUN/Creatinine Ratio 12 (6-26); Blood Urea Nitrogen 8 mg/dL (8-23); Calcium 8.9 mg/dL (8.6-10.3); Carbon Dioxide 27 mEq/L (23-29); Chloride 107 mEq/L (98-107); Glucose 98 mg/dL (70-105); Osmolality,Calculated 290 (280-300); Potassium 3.8 mEq/L (3.5-5.1); Sodium 141 mEq/L (136-145); eGFR For African Americans > 60 (> 60); eGFR For Non-African Americans > 60 (> 60)
[2019-09-24] MEDS: *HR* Heparin 5,000 UNIT/ML VIAL SQ SCH (05:45)
[2019-09-24] MEDS: Ringers Solution, Lactated 1,000 ML IVC SCH (05:50)
[2019-09-24 06:37] VITALS: BP 145/92
[2019-09-24] MEDS: Sucralfate 1 GM TABLET PO SCH ×2 (06:52→11:05)
[2019-09-24] MEDS: Gabapentin 300 MG CAPSULE PO SCH (10:04)
[2019-09-24] MEDS: Loratadine 10 MG TABLET PO SCH (10:04)
[2019-09-24] MEDS: amLODIPine 5 MG TABLET PO SCH (10:04)
[2019-09-24] MEDS: Nicotine 21 MG PATCH.TD24 TD SCH (10:04)
[2019-09-24] MEDS: cloNIDine HCl 0.1 MG TABLET PO SCH (10:04)
== END 2019-09-24 11:26 | disposition home or self-care (01) ==
LOC: EMEROOARM 07:05 → 3ANU 07:05
PROVIDERS: ADMIT Internal Medicine; ATTEND Internal Medicine

== ENCOUNTER 2020-10-23 15:18 | Inpatient (IN) ==
[2020-10-23] MEDS ORDERED: methylPREDNISolone 125 MG/2 ML VIAL IVP ONE (16:36)
[2020-10-23] MEDS ORDERED: Azithromycin 250 MG TABLET PO ONE (16:36)
[2020-10-23] MEDS ORDERED: Ipratropium/Albuterol Neb 3 ML IH ONE (16:36)
[2020-10-23 17:30] LABS: Basophils % 0.5 %; Eosinophils % 0.5 %; Hematocrit 41.3 % (35.3-44.9); Immature Granulocytes % 0.3 % (0-4); Lymphocytes # 1.6 K/mcL (0.6-4.6); Lymphocytes % 20.7 %; Mean Corpuscular HGB Conc 33.9 g/dL (31.6-35.5); Mean Corpuscular Hemoglobin 31.4 pg (28.0-33.3); Mean Corpuscular Volume 92.6 fL (83.0-100.0); Mean Platelet Volume 8.8 fL (9.4-12.4); Monocytes # 0.4 K/mcL (0.0-1.3); Monocytes % 5.6 %; Neutrophils # 5.7 K/mcL (1.6-8.9); Platelet Count 301 K/mcL (140-400); Red Blood Count 4.46 M/mcL (3.82-4.97); Red Cell Distribution Width 13.4 % (11.5-14.5); Segmented Neutrophils % 72.4 %; White Blood Count 7.8 K/mcL (4.3-11.1)
[2020-10-23 17:48] LABS: Prothrombin Time 11.6 Seconds (9.4-12.1)
[2020-10-23 17:50] LABS: Activated Partial Thrombo Time 27.3 Seconds (26.0-36.0)
[2020-10-23 17:53] LABS: BUN/Creatinine Ratio 11 (6-26); Blood Urea Nitrogen 7 mg/dL (8-23); Calcium 9.8 mg/dL (8.6-10.3); Carbon Dioxide 26 mEq/L (23-29); Chloride 101 mEq/L (98-107); Glucose 100 mg/dL (70-105); Osmolality,Calculated 284 (280-300); Sodium 138 mEq/L (136-145); eGFR For African Americans > 60 (> 60); eGFR For Non-African Americans > 60 (> 60)
[2020-10-23 17:54] LABS: Troponin I < 0.03 ng/mL (< 0.04)
[2020-10-23] MEDS ORDERED: Ondansetron 4 MG/2 ML VIAL IVP ONE (19:04)
[2020-10-23] MEDS ORDERED: Ondansetron 4 MG/2 ML VIAL ONE (19:06)
[2020-10-23] MEDS ORDERED: Naloxone 0.4 MG/ML INJ IVP PRN (21:24)
[2020-10-23] MEDS ORDERED: Acetaminophen 325 MG TABLET PO PRN (21:24)
[2020-10-23] MEDS ORDERED: *HR* Labetalol 20 MG/4 ML SYRINGE IVP ONE (21:31)
[2020-10-23] MEDS ORDERED: Aspirin 325 MG TABLET PO ONE (21:32)
[2020-10-23] MEDS ORDERED: *HR* Labetalol 20 MG/4 ML SYRINGE IVP PRN (21:33)
[2020-10-23] MEDS ORDERED: Morphine Sulfate 2 MG/ML SYRINGE IVP ONE (21:58)
[2020-10-23] MEDS: cloNIDine HCL 0.1 MG TABLET PO SCH (22:03)
[2020-10-23] MEDS: amLODIPine 5 MG TABLET PO SCH (22:03)
[2020-10-23] MEDS ORDERED: *HR* OxyCODONE/APAP 10/325 TABLET PO PRN (22:12)
[2020-10-23] MEDS: Levalbuterol Neb 0.63 MG/3 ML IH SCH (22:32)
[2020-10-23] MEDS: Nicotine 21 MG PATCH.TD24 TD SCH (23:21)
[2020-10-24] MEDS ORDERED: Ipratropium/Albuterol Neb 3 ML IH SCH
[2020-10-24] MEDS: Levalbuterol Neb 0.63 MG/3 ML IH SCH ×4 (03:28→22:11)
[2020-10-24 04:19] LABS: Hematocrit 42.3 % (35.3-44.9); Hemoglobin 13.9 g/dL (11.5-15.4); Mean Corpuscular HGB Conc 32.9 g/dL (31.6-35.5); Mean Corpuscular Hemoglobin 29.9 pg (28.0-33.3); Mean Platelet Volume 8.7 fL (9.4-12.4); Platelet Count 297 K/mcL (140-400); Red Blood Count 4.65 M/mcL (3.82-4.97); Red Cell Distribution Width 13.4 % (11.5-14.5); White Blood Count 6.1 K/mcL (4.3-11.1)
[2020-10-24 04:40] LABS: BUN/Creatinine Ratio 20 (6-26); Blood Urea Nitrogen 13 mg/dL (8-23); Carbon Dioxide 27 mEq/L (23-29); Chloride 100 mEq/L (98-107); Glucose 134 mg/dL (70-105); Osmolality,Calculated 284 (280-300); Potassium 4.3 mEq/L (3.5-5.1); Sodium 136 mEq/L (136-145); eGFR For African Americans > 60 (> 60); eGFR For Non-African Americans > 60 (> 60)
[2020-10-24] MEDS: Ondansetron 4 MG/2 ML VIAL IVP PRN ×2 (05:42→16:20)
[2020-10-24] MEDS: *HR* Enoxaparin 40 MG/0.4 ML SYRINGE SQ SCH (05:46)
[2020-10-24] MEDS ORDERED: Regadenoson 0.4 MG/5 ML SYRINGE IVP ONE (06:31)
[2020-10-24] MEDS ORDERED: *HR* LORazepam 2 MG/ML VIAL IVP ONE ×2 (08:09→20:11)
[2020-10-24] MEDS ORDERED: *HR* HYDROmorphone (PF) 1 MG/ML SYRINGE IVP ONE (08:09)
[2020-10-24] MEDS ORDERED: Ondansetron 4 MG/2 ML VIAL IVP ONE (08:10)
[2020-10-24] MEDS: Aspirin 81 MG TAB.CHEW PO SCH (11:12)
[2020-10-24] MEDS: amLODIPine 5 MG TABLET PO SCH (11:12)
[2020-10-24] MEDS: cloNIDine HCL 0.1 MG TABLET PO SCH ×3 (11:12→19:56)
[2020-10-24] MEDS: predniSONE 20 MG TABLET PO SCH (11:12)
[2020-10-24] MEDS: Nicotine 21 MG PATCH.TD24 TD SCH (11:12)
[2020-10-24] MEDS: Azithromycin 500 MG in 0.9 % Sodium Chloride 250 ML IVPB SCH (11:13)
[2020-10-24] MEDS: Sucralfate 1 GM TABLET PO SCH ×2 (16:17→21:18)
[2020-10-24] MEDS: *HR* OxyCODONE/APAP 5/325 TABLET PO PRN ×2 (16:20→23:30)
[2020-10-24] MEDS ORDERED: *HR* Metoprolol 5 MG/5 ML VIAL IVP ONE (17:41)
[2020-10-24] MEDS ORDERED: *HR* Promethazine 25 MG/ML VIAL IM PRN (19:56)
[2020-10-24] MEDS: Gabapentin 300 MG CAPSULE PO SCH (19:56)
[2020-10-24] MEDS: Clobetasol Propionate 0.05% 15 GM Cream Tube TP SCH (21:22)
[2020-10-25] MEDS: traZODone 50 MG TABLET PO SCH ×2 (01:50→20:51)
[2020-10-25] MEDS: Levalbuterol Neb 0.63 MG/3 ML IH SCH ×4 (03:08→22:10)
[2020-10-25] MEDS: Sucralfate 1 GM TABLET PO SCH ×4 (05:36→20:53)
[2020-10-25] MEDS: Ondansetron 4 MG/2 ML VIAL IVP PRN ×3 (05:43→23:19)
[2020-10-25] MEDS: *HR* Enoxaparin 40 MG/0.4 ML SYRINGE SQ SCH (05:49)
[2020-10-25 08:11] LABS: BUN/Creatinine Ratio 40 (6-26); Blood Urea Nitrogen 32 mg/dL (8-23); Carbon Dioxide 12 mEq/L (23-29); Chloride 105 mEq/L (98-107); Glucose 70 mg/dL (70-105); Osmolality,Calculated 291 (280-300); Potassium 4.8 mEq/L (3.5-5.1); Sodium 138 mEq/L (136-145); eGFR For African Americans > 60 (> 60); eGFR For Non-African Americans > 60 (> 60)
[2020-10-25] MEDS: Aspirin 81 MG TAB.CHEW PO SCH (08:22)
[2020-10-25] MEDS: predniSONE 20 MG TABLET PO SCH (08:22)
[2020-10-25] MEDS: Gabapentin 300 MG CAPSULE PO SCH ×2 (08:23→20:53)
[2020-10-25] MEDS: cloNIDine HCL 0.1 MG TABLET PO SCH ×3 (08:23→20:51)
[2020-10-25] MEDS: Azithromycin 500 MG in 0.9 % Sodium Chloride 250 ML IVPB SCH (08:23)
[2020-10-25] MEDS: amLODIPine 5 MG TABLET PO SCH (08:23)
[2020-10-25] MEDS: Clobetasol Propionate 0.05% 15 GM Cream Tube TP SCH ×3 (08:23→20:52)
[2020-10-25] MEDS: *HR* OxyCODONE/APAP 5/325 TABLET PO PRN ×3 (08:26→23:19)
[2020-10-25] MEDS: Nicotine 21 MG PATCH.TD24 TD SCH (08:27)
[2020-10-25 08:47] LABS: Magnesium 2.1 mg/dL (1.6-2.6)
[2020-10-25] MEDS ORDERED: traZODone 50 MG TABLET PO SCH (09:00)
[2020-10-25 09:09] LABS: Basophils % 0.2 %; Hematocrit 46.3 % (35.3-44.9); Hemoglobin 14.8 g/dL (11.5-15.4); Immature Granulocytes % 0.2 % (0-4); Lymphocytes # 2.5 K/mcL (0.6-4.6); Lymphocytes % 26.6 %; Mean Corpuscular Hemoglobin 29.8 pg (28.0-33.3); Mean Corpuscular Volume 93.3 fL (83.0-100.0); Mean Platelet Volume 8.8 fL (9.4-12.4); Monocytes # 0.6 K/mcL (0.0-1.3); Monocytes % 6.1 %; Platelet Count 300 K/mcL (140-400); Red Blood Count 4.96 M/mcL (3.82-4.97); Segmented Neutrophils % 66.9 %; White Blood Count 9.5 K/mcL (4.3-11.1)
[2020-10-25 09:20] LABS: Neutrophils # 6.4 K/mcL (1.6-8.9)
[2020-10-25] MEDS ORDERED: Sennosides/Docusate Sodium TABLET PO PRN (19:51)
[2020-10-26] MEDS: Levalbuterol Neb 0.63 MG/3 ML IH SCH ×2 (02:54→11:14)
[2020-10-26] MEDS: *HR* OxyCODONE/APAP 5/325 TABLET PO PRN (06:12)
[2020-10-26] MEDS: *HR* Enoxaparin 40 MG/0.4 ML SYRINGE SQ SCH (06:12)
[2020-10-26 06:42] LABS: Basophils % 0.4 %; Eosinophils % 0.1 %; Immature Granulocytes % 0.1 % (0-4); Lymphocytes % 40.6 %; Mean Corpuscular HGB Conc 31.5 g/dL (31.6-35.5); Mean Corpuscular Hemoglobin 29.7 pg (28.0-33.3); Mean Corpuscular Volume 94.3 fL (83.0-100.0); Mean Platelet Volume 8.6 fL (9.4-12.4); Monocytes # 0.5 K/mcL (0.0-1.3); Monocytes % 6.1 %; Neutrophils # 3.9 K/mcL (1.6-8.9); Platelet Count 282 K/mcL (140-400); Red Blood Count 4.24 M/mcL (3.82-4.97); Red Cell Distribution Width 14.5 % (11.5-14.5); Segmented Neutrophils % 52.7 %; White Blood Count 7.4 K/mcL (4.3-11.1)
[2020-10-26 06:43] LABS: Hemoglobin 12.6 g/dL (11.5-15.4)
[2020-10-26 07:04] LABS: BUN/Creatinine Ratio 35 (6-26); Blood Urea Nitrogen 31 mg/dL (8-23); Calcium 9.1 mg/dL (8.6-10.3); Carbon Dioxide 30 mEq/L (23-29); Chloride 104 mEq/L (98-107); Glucose 86 mg/dL (70-105); Osmolality,Calculated 294 (280-300); Sodium 139 mEq/L (136-145); eGFR For African Americans > 60 (> 60); eGFR For Non-African Americans > 60 (> 60)
[2020-10-26] MEDS: predniSONE 20 MG TABLET PO SCH (08:29)
[2020-10-26] MEDS: Sucralfate 1 GM TABLET PO SCH (08:30)
[2020-10-26] MEDS: Aspirin 81 MG TAB.CHEW PO SCH (08:30)
[2020-10-26] MEDS: amLODIPine 5 MG TABLET PO SCH (08:30)
[2020-10-26] MEDS: cloNIDine HCL 0.1 MG TABLET PO SCH (08:30)
[2020-10-26] MEDS: Nicotine 21 MG PATCH.TD24 TD SCH (08:30)
[2020-10-26] MEDS: Azithromycin 500 MG in 0.9 % Sodium Chloride 250 ML IVPB SCH (08:30)
[2020-10-26] MEDS: Gabapentin 300 MG CAPSULE PO SCH (08:31)
[2020-10-26] MEDS: Clobetasol Propionate 0.05% 15 GM Cream Tube TP SCH (08:44)
[2020-10-26 10:58] VITALS: BP 129/84
== END 2020-10-26 11:50 | disposition home or self-care (01) | DRG 305 ==
LOC: 3BNU 15:18 → EMEROOARM 15:18 → SUATTDRO 19:28 → 3BNU 20:31 → SUATTDRO 10-24 16:16
PROVIDERS: ADMIT Internal Medicine; ATTEND Internal Medicine

== ENCOUNTER 2021-01-16 02:02 | Inpatient (IN) ==
[2021-01-16] MEDS ORDERED: 0.9 % Sodium Chloride 1,000 ML IVC ONE ×3 (02:21→06:06)
[2021-01-16 02:54] LABS: Basophils % 0.1 %; Hematocrit 35.8 % (35.3-44.9); Hemoglobin 11.7 g/dL (11.5-15.4); Immature Granulocytes % 0.7 % (0-4); Lymphocytes # 1.5 K/mcL (0.6-4.6); Mean Corpuscular HGB Conc 32.7 g/dL (31.6-35.5); Mean Corpuscular Volume 94.7 fL (83.0-100.0); Mean Platelet Volume 9.1 fL (9.4-12.4); Monocytes # 1.2 K/mcL (0.0-1.3); Monocytes % 5.6 %; Neutrophils # 18.8 K/mcL (1.6-8.9); Platelet Count 217 K/mcL (140-400); Red Blood Count 3.78 M/mcL (3.82-4.97); Red Cell Distribution Width 13.5 % (11.5-14.5); Segmented Neutrophils % 86.6 %; White Blood Count 21.7 K/mcL (4.3-11.1)
[2021-01-16 03:13] LABS: Calcium 8.7 mg/dL (8.6-10.3); Potassium 4.8 mEq/L (3.5-5.1)
[2021-01-16] MEDS ORDERED: Piperacillin/Tazobactam 3.375 GM in 0.9 % Sodium Chloride Mini Bag 100 ML IVPB ONE (03:20)
[2021-01-16 03:50] LABS: Adenovirus Not Detected (Not Detect); Bordetella Pertussis Not Detected (Not Detect); Chlamydophila pneumoniae Not Detected (Not Detect); Coronavirus 229E Not Detected (Not Detect); Coronavirus HKU1 Not Detected (Not Detect); Coronavirus NL63 Not Detected (Not Detect); Coronavirus OC43 Not Detected (Not Detect); Human Metapneumovirus Not Detected (Not Detect); Human Rhinovirus/Enterovirus Not Detected (Not Detect); Influenza A Subtype 2009 H1 Not Detected (Not Detect); Influenza B Not Detected (Not Detect); Mycoplasma pneumoniae Not Detected (Not Detect); Parainfluenza Virus 1 Not Detected (Not Detect); Parainfluenza Virus 2 Not Detected (Not Detect); Parainfluenza Virus 3 Not Detected (Not Detect); Parainfluenza Virus 4 Not Detected (Not Detect); Respiratory Syncytial Virus Not Detected (Not Detect); SARS-CoV-2 Not Detected (Not Detect)
[2021-01-16] MEDS ORDERED: Vancomycin 1,250 MG/262.5 ML IV.SOLN IVPB ONE (04:00)
[2021-01-16 05:17] LABS: Bilirubin,Urine Negative (Negative); Blood,Urine Negative (Negative); Clarity,Urine Turbid (Clear); Color,Urine Yellow (Yellow); Glucose,Urine (UA) Normal (Normal); Hyaline Casts,Urine Many per lpf (None Seen); Ketones,Urine Negative (Negative); Leukocyte Esterase,Urine Small (Negative); Mucus,Urine Few per lpf (None-Few); Nitrite,Urine Negative (Negative); Protein,Urine 30 mg/dL (Neg-Trace); Specific Gravity,Urine 1.023 (1.010-1.025); Squamous Epithelial Cell,Urine Few per hpf (None-Few); Urobilinogen,Urine Normal (Normal); WBC,Urine 0-3 per hpf (0-3)
[2021-01-16] MEDS ORDERED: Naloxone 0.4 MG/ML INJ IVP PRN (07:21)
[2021-01-16] MEDS ORDERED: Ringers Solution, Lactated 1,000 ML IVC SCH (07:30)
[2021-01-16] MEDS: *HR* Heparin 5,000 UNIT/ML VIAL SQ SCH ×2 (08:43→16:45)
[2021-01-16] MEDS: Aspirin Enteric Coated 81 MG Tablet PO SCH (08:43)
[2021-01-16] MEDS ORDERED: Ipratropium/Albuterol Neb 3 ML IH PRN (09:01)
[2021-01-16] MEDS ORDERED: Azithromycin 250 MG TABLET PO ONE (09:01)
[2021-01-16 09:42] LABS: Sodium, Urine 22.4 mEq/L
[2021-01-16] MEDS ORDERED: Tiotropium 10 INH DOSE IH SCH (10:00)
[2021-01-16] MEDS: Nicotine 14 MG PATCH.TD24 TD SCH (10:15)
[2021-01-16] MEDS: predniSONE 20 MG TABLET PO SCH (10:15)
[2021-01-16] MEDS: Budesonide/Formoterol 160/4.5 1 PUFF INH IH SCH ×2 (11:33→19:47)
[2021-01-16] MEDS: Ipratropium/Albuterol Neb 3 ML IH SCH ×4 (11:33→23:21)
[2021-01-16] MEDS: Piperacillin/Tazobactam 3.375 GM in 0.9 % Sodium Chloride Mini Bag 100 ML IVPB SCH ×2 (13:24→20:15)
[2021-01-16 15:10] LABS: ABG Base Excess -2 mEq/L (-2 to 3); ABG HCO3 24 mEq/L (21-27); ABG Oxygen Saturation 92 % (95-98); ABG PCO2 45 mmHg (35-45); ABG PH 7.34 pH Units (7.32-7.45); ABG PO2 67 mmHg (85-104); ABG TCO2 26 mEq/L (20-26)
[2021-01-16 17:26] LABS: BUN/Creatinine Ratio 22 (6-26); Blood Urea Nitrogen 22 mg/dL (8-23); Calcium 8.1 mg/dL (8.6-10.3); Carbon Dioxide 22 mEq/L (23-29); Chloride 107 mEq/L (98-107); Glucose 147 mg/dL (70-105); Osmolality,Calculated 286 (280-300); Potassium 4.6 mEq/L (3.5-5.1); Sodium 135 mEq/L (136-145); eGFR For African Americans > 60 (> 60); eGFR For Non-African Americans 55 (> 60)
[2021-01-16] MEDS: traZODone 50 MG TABLET PO SCH (20:16)
[2021-01-17] MEDS: *HR* Heparin 5,000 UNIT/ML VIAL SQ SCH ×3 (00:07→15:10)
[2021-01-17 02:19] LABS: Hematocrit 29.8 % (35.3-44.9); Mean Corpuscular HGB Conc 33.2 g/dL (31.6-35.5); Mean Corpuscular Hemoglobin 31.3 pg (28.0-33.3); Mean Corpuscular Volume 94.3 fL (83.0-100.0); Mean Platelet Volume 9.6 fL (9.4-12.4); Platelet Count 191 K/mcL (140-400); Red Blood Count 3.16 M/mcL (3.82-4.97); Red Cell Distribution Width 13.2 % (11.5-14.5); White Blood Count 17.8 K/mcL (4.3-11.1)
[2021-01-17 02:20] LABS: Hemoglobin 9.9 g/dL (11.5-15.4)
[2021-01-17 02:26] LABS: INR 1.3; Prothrombin Time 14.6 Seconds (9.4-12.1)
[2021-01-17 02:45] LABS: Alanine Aminotransferase 10 Units/L (7-52); Albumin 3.3 g/dL (3.5-5.7); Albumin/Globulin Ratio 1.2 (1.1-2.2); Alkaline Phosphatase 62 Units/L (34-104); Aspartate Amino Transferase 15 Units/L (13-39); BUN/Creatinine Ratio 26 (6-26); Bilirubin,Total 0.3 mg/dL (0.3-1.0); Blood Urea Nitrogen 19 mg/dL (8-23); Calcium 8.7 mg/dL (8.6-10.3); Carbon Dioxide 23 mEq/L (23-29); Chloride 107 mEq/L (98-107); Globulin 2.7 g/dL (2.4-3.5); Glucose 139 mg/dL (70-105); Magnesium 1.6 mg/dL (1.6-2.6); Osmolality,Calculated 287 (280-300); Potassium 4.3 mEq/L (3.5-5.1); Sodium 136 mEq/L (136-145); eGFR For African Americans > 60 (> 60); eGFR For Non-African Americans > 60 (> 60)
[2021-01-17] MEDS: Piperacillin/Tazobactam 3.375 GM in 0.9 % Sodium Chloride Mini Bag 100 ML IVPB SCH ×3 (04:05→20:13)
[2021-01-17] MEDS: Ipratropium/Albuterol Neb 3 ML IH SCH ×6 (04:09→23:04)
[2021-01-17] MEDS: Acetaminophen 325 MG TABLET PO PRN ×2 (06:47→12:49)
[2021-01-17] MEDS: Nicotine 14 MG PATCH.TD24 TD SCH (07:48)
[2021-01-17] MEDS: Azithromycin 250 MG TABLET PO SCH (07:48)
[2021-01-17] MEDS: predniSONE 20 MG TABLET PO SCH (07:48)
[2021-01-17] MEDS: Aspirin Enteric Coated 81 MG Tablet PO SCH (07:48)
[2021-01-17] MEDS ORDERED: Ringers Solution, Lactated 1,000 ML IVC SCH (08:00)
[2021-01-17] MEDS: Budesonide/Formoterol 160/4.5 1 PUFF INH IH SCH ×2 (08:20→20:04)
[2021-01-17] MEDS: *HR* OxyCODONE/APAP 5/325 TABLET PO PRN ×2 (11:43→17:45)
[2021-01-17] MEDS ORDERED: Isovue-370 500 ML BOTTLE IVP ONE (11:58)
[2021-01-17] MEDS: Ondansetron 4 MG/2 ML VIAL IVP PRN ×2 (15:10→23:12)
[2021-01-17] MEDS: traZODone 50 MG TABLET PO SCH (20:14)
[2021-01-17] MEDS: Nicotine 2 MG GUM BC PRN (20:14)
[2021-01-17] MEDS: Melatonin 3 MG TABLET PO PRN (20:15)
[2021-01-18] MEDS: *HR* Heparin 5,000 UNIT/ML VIAL SQ SCH ×3 (00:15→17:43)
[2021-01-18] MEDS: hydrOXYzine pamoate 25 MG CAPSULE PO PRN ×3 (00:15→21:00)
[2021-01-18] MEDS: *HR* OxyCODONE/APAP 5/325 TABLET PO PRN ×4 (00:15→19:00)
[2021-01-18] MEDS ORDERED: *HR* Promethazine 25 MG/ML VIAL IM ONE (00:43)
[2021-01-18] MEDS: Ipratropium/Albuterol Neb 3 ML IH SCH ×6 (04:21→23:24)
[2021-01-18] MEDS: Piperacillin/Tazobactam 3.375 GM in 0.9 % Sodium Chloride Mini Bag 100 ML IVPB SCH ×3 (04:22→20:59)
[2021-01-18 07:30] LABS: Basophils % 0.1 %; Eosinophils % 0.2 %; Hemoglobin 10.3 g/dL (11.5-15.4); Immature Granulocytes % 1.4 % (0-4); Lymphocytes % 9.2 %; Mean Corpuscular HGB Conc 32.2 g/dL (31.6-35.5); Mean Corpuscular Hemoglobin 30.8 pg (28.0-33.3); Mean Corpuscular Volume 95.8 fL (83.0-100.0); Mean Platelet Volume 9.5 fL (9.4-12.4); Monocytes # 0.5 K/mcL (0.0-1.3); Monocytes % 4.9 %; Neutrophils # 9.2 K/mcL (1.6-8.9); Platelet Count 182 K/mcL (140-400); Red Blood Count 3.34 M/mcL (3.82-4.97); Red Cell Distribution Width 13.5 % (11.5-14.5); Segmented Neutrophils % 84.2 %; White Blood Count 10.9 K/mcL (4.3-11.1)
[2021-01-18 07:49] LABS: BUN/Creatinine Ratio 21 (6-26); Blood Urea Nitrogen 12 mg/dL (8-23); Carbon Dioxide 27 mEq/L (23-29); Chloride 105 mEq/L (98-107); Glucose 91 mg/dL (70-105); Magnesium 1.5 mg/dL (1.6-2.6); Osmolality,Calculated 285 (280-300); Phosphorous 2.2 mg/dL (2.7-4.5); Potassium 3.6 mEq/L (3.5-5.1); Sodium 138 mEq/L (136-145); eGFR For African Americans > 60 (> 60); eGFR For Non-African Americans > 60 (> 60)
[2021-01-18] MEDS: Budesonide/Formoterol 160/4.5 1 PUFF INH IH SCH ×2 (07:51→20:35)
[2021-01-18] MEDS ORDERED: amLODIPine 5 MG TABLET PO SCH (09:00)
[2021-01-18] MEDS: Azithromycin 250 MG TABLET PO SCH (09:55)
[2021-01-18] MEDS: Nicotine 14 MG PATCH.TD24 TD SCH (09:55)
[2021-01-18] MEDS: Aspirin Enteric Coated 81 MG Tablet PO SCH (09:55)
[2021-01-18] MEDS: predniSONE 20 MG TABLET PO SCH (09:55)
[2021-01-18] MEDS ORDERED: Acetaminophen IV 500 MG/50 ML BAG IVPB ONE (10:22)
[2021-01-18] MEDS: Ondansetron 4 MG/2 ML VIAL IVP PRN (10:24)
[2021-01-18] MEDS: Acetaminophen 325 MG TABLET PO PRN (10:24)
[2021-01-18] MEDS: Furosemide 20 MG/2 ML VIAL IVP SCH ×2 (12:59→20:58)
[2021-01-18] MEDS: Nicotine 2 MG GUM BC PRN (12:59)
[2021-01-18] MEDS ORDERED: MethylPREDNISolone 40 MG/ML VIAL IVP SCH (18:00)
[2021-01-18] MEDS: traZODone 50 MG TABLET PO SCH (21:00)
[2021-01-18 23:33] VITALS: BP 149/89
[2021-01-19] MEDS: *HR* Heparin 5,000 UNIT/ML VIAL SQ SCH (00:41)
[2021-01-19] MEDS: *HR* OxyCODONE/APAP 5/325 TABLET PO PRN (00:42)
[2021-01-19] MEDS: Melatonin 3 MG TABLET PO PRN (00:42)
[2021-01-19 01:46] LABS: BUN/Creatinine Ratio 19 (6-26); Blood Urea Nitrogen 13 mg/dL (8-23); Calcium 8.6 mg/dL (8.6-10.3); Carbon Dioxide 26 mEq/L (23-29); Chloride 102 mEq/L (98-107); Glucose 152 mg/dL (70-105); Magnesium 1.4 mg/dL (1.6-2.6); Osmolality,Calculated 289 (280-300); Phosphorous 2.7 mg/dL (2.7-4.5); Potassium 3.5 mEq/L (3.5-5.1); Sodium 138 mEq/L (136-145); eGFR For African Americans > 60 (> 60); eGFR For Non-African Americans > 60 (> 60)
== END 2021-01-19 02:45 | disposition left against medical advice (07) | DRG 871 ==
LOC: EMEROOARM 02:02 → 2NENU 02:02 → SUATTDRO 05:45 → 2NENU 06:38 → SUATTDRO 07:47
PROVIDERS: ADMIT Internal Medicine; ATTEND Internal Medicine

== ENCOUNTER 2021-06-03 17:49 | Inpatient (IN) ==
[2021-06-03] MEDS ORDERED: *HR* LORazepam 2 MG/ML VIAL ONE (17:55)
[2021-06-03] MEDS ORDERED: *HR* LORazepam 2 MG/ML VIAL IVP ONE (18:05)
[2021-06-03] MEDS ORDERED: methylPREDNISolone 125 MG/2 ML VIAL IVP ONE (18:05)
[2021-06-03] MEDS ORDERED: Ipratropium/Albuterol Neb 3 ML IH ONE (18:05)
[2021-06-03 18:21] LABS: Basophils % 0.4 %; Eosinophils % 0.4 %; Hematocrit 38.7 % (35.3-44.9); Hemoglobin 12.3 g/dL (11.5-15.4); Immature Granulocytes % 0.3 % (0-4); Lymphocytes # 3.8 K/mcL (0.6-4.6); Lymphocytes % 42.5 %; Mean Corpuscular HGB Conc 31.8 g/dL (31.6-35.5); Mean Corpuscular Hemoglobin 30.1 pg (28.0-33.3); Mean Corpuscular Volume 94.9 fL (83.0-100.0); Mean Platelet Volume 8.5 fL (9.4-12.4); Monocytes # 0.7 K/mcL (0.0-1.3); Monocytes % 7.5 %; Neutrophils # 4.4 K/mcL (1.6-8.9); Platelet Count 352 K/mcL (140-400); Red Blood Count 4.08 M/mcL (3.82-4.97); Red Cell Distribution Width 13.6 % (11.5-14.5); Segmented Neutrophils % 48.9 %
[2021-06-03 18:24] LABS: VBG HCO3 27 mEq/L (21-27); VBG PCO2 47 mmHg (41-51); VBG PH 7.37 pH Units (7.32-7.42); VBG PO2 136 mmHg (25-50)
[2021-06-03 19:17] LABS: BUN/Creatinine Ratio 14 (6-26); Blood Urea Nitrogen 10 mg/dL (8-23); Carbon Dioxide 23 mEq/L (23-29); Chloride 103 mEq/L (98-107); Glucose 117 mg/dL (70-105); Osmolality,Calculated 290 (280-300); Potassium 4.1 mEq/L (3.5-5.1); Sodium 140 mEq/L (136-145); Troponin I < 0.03 ng/mL (< 0.04); eGFR For African Americans > 60 (> 60); eGFR For Non-African Americans > 60 (> 60)
[2021-06-03 20:03] LABS: Calcium 9.2 mg/dL (8.6-10.3)
[2021-06-03] MEDS ORDERED: Naloxone 0.4 MG/ML INJ IVP PRN (20:03)
[2021-06-03] MEDS ORDERED: Melatonin 3 MG TABLET PO PRN (20:03)
[2021-06-03] MEDS ORDERED: *HR* HYDROcodone/Acet 5/325 mg TABLET PO PRN (20:03)
[2021-06-03] MEDS ORDERED: Ipratropium/Albuterol Neb 3 ML IH PRN (20:11)
[2021-06-03 21:08] LABS: Adenovirus Not Detected (Not Detect); Bordetella Pertussis Not Detected (Not Detect); Chlamydophila pneumoniae Not Detected (Not Detect); Coronavirus 229E Not Detected (Not Detect); Coronavirus HKU1 Not Detected (Not Detect); Coronavirus NL63 Not Detected (Not Detect); Coronavirus OC43 Not Detected (Not Detect); Human Metapneumovirus Not Detected (Not Detect); Human Rhinovirus/Enterovirus Not Detected (Not Detect); Influenza A Subtype 2009 H1 Not Detected (Not Detect); Influenza B Not Detected (Not Detect); Mycoplasma pneumoniae Not Detected (Not Detect); Parainfluenza Virus 1 Not Detected (Not Detect); Parainfluenza Virus 2 Not Detected (Not Detect); Parainfluenza Virus 3 Not Detected (Not Detect); Parainfluenza Virus 4 Not Detected (Not Detect); Respiratory Syncytial Virus Not Detected (Not Detect); SARS-CoV-2 Not Detected (Not Detect)
[2021-06-03] MEDS ORDERED: diazePAM 10 MG/2 ML SYRINGE IVP ONE (22:07)
[2021-06-03] MEDS: Ringers Solution, Lactated 1,000 ML IVC SCH (23:09)
[2021-06-04] MEDS: Ipratropium/Albuterol Neb 3 ML IH SCH ×7 (00:29→23:33)
[2021-06-04] MEDS: MethylPREDNISolone 40 MG/ML VIAL IVP SCH ×3 (02:06→16:55)
[2021-06-04 05:10] LABS: Hematocrit 33.1 % (35.3-44.9); Immature Granulocytes % 0.4 % (0-4); Lymphocytes # 0.5 K/mcL (0.6-4.6); Lymphocytes % 7.6 %; Mean Corpuscular HGB Conc 32.3 g/dL (31.6-35.5); Mean Corpuscular Hemoglobin 29.2 pg (28.0-33.3); Mean Corpuscular Volume 90.4 fL (83.0-100.0); Mean Platelet Volume 8.6 fL (9.4-12.4); Monocytes # 0.1 K/mcL (0.0-1.3); Monocytes % 0.7 %; Neutrophils # 6.1 K/mcL (1.6-8.9); Platelet Count 315 K/mcL (140-400); Red Blood Count 3.66 M/mcL (3.82-4.97); Red Cell Distribution Width 13.5 % (11.5-14.5); Segmented Neutrophils % 91.3 %; White Blood Count 6.7 K/mcL (4.3-11.1)
[2021-06-04 05:15] LABS: Hemoglobin 10.7 g/dL (11.5-15.4)
[2021-06-04 05:19] LABS: INR 1.1; Prothrombin Time 12.9 Seconds (9.4-12.1)
[2021-06-04 05:32] LABS: BUN/Creatinine Ratio 23 (6-26); Blood Urea Nitrogen 12 mg/dL (8-23); Calcium 9.2 mg/dL (8.6-10.3); Carbon Dioxide 26 mEq/L (23-29); Chloride 103 mEq/L (98-107); Glucose 154 mg/dL (70-105); Magnesium 1.4 mg/dL (1.6-2.6); Osmolality,Calculated 287 (280-300); Potassium 4.3 mEq/L (3.5-5.1); Sodium 137 mEq/L (136-145); eGFR For African Americans > 60 (> 60); eGFR For Non-African Americans > 60 (> 60)
[2021-06-04 05:46] LABS: Thyroid Stimulating Hormone 0.301 mcIU/mL (0.340-5.600)
[2021-06-04] MEDS: Doxycycline 100 MG in 0.9 % Sodium Chloride Mini Bag 100 ML IVPB SCH ×2 (06:12→16:55)
[2021-06-04] MEDS: Budesonide/Formoterol 160/4.5 1 PUFF INH IH SCH ×2 (07:54→21:27)
[2021-06-04] MEDS: Ringers Solution, Lactated 1,000 ML IVC SCH (09:20)
[2021-06-04] MEDS ORDERED: Nicotine 2 MG GUM BC PRN (11:20)
[2021-06-04] MEDS: *HR* LORazepam 0.5 MG TABLET PO PRN (12:34)
[2021-06-04] MEDS: Nicotine 21 MG PATCH.TD24 TD SCH (12:34)
[2021-06-04] MEDS ORDERED: D5% in Water 1,000 ML IVC PRN (13:29)
[2021-06-04] MEDS ORDERED: Dextrose Gel 15 GM/37.5 ML TUBE PO PRN ×2 (13:29)
[2021-06-04] MEDS ORDERED: *HR* Dextrose 50 % in Water (Vial) 50 ML VIAL IVP PRN (13:29)
[2021-06-04] MEDS: Ondansetron 4 MG/2 ML VIAL IVP PRN (13:41)
[2021-06-04] MEDS: *HR* OxyCODONE/APAP 7.5/325 TABLET PO PRN ×2 (13:41→18:59)
[2021-06-04] MEDS: hydrOXYzine pamoate 25 MG CAPSULE PO PRN (15:31)
[2021-06-04] MEDS: Acetaminophen 325 MG TABLET PO PRN (15:32)
[2021-06-04 15:43] LABS: Hematocrit 33.3 % (35.3-44.9); Hemoglobin 11.1 g/dL (11.5-15.4)
[2021-06-04] MEDS: Insulin LISPRO 300 UNITS/3 ML VIAL SUBQ SCH ×2 (16:38→21:10)
[2021-06-04] MEDS: *HR* Promethazine 25 MG/ML VIAL IM PRN (16:52)
[2021-06-04] MEDS: Sucralfate 1 GM TABLET PO SCH ×2 (16:56→21:18)
[2021-06-04] MEDS: traZODone 50 MG TABLET PO SCH (21:18)
[2021-06-04] MEDS: Gabapentin 300 MG CAPSULE PO SCH (21:19)
[2021-06-04] MEDS: Chlorhexidine Rinse 15 ML MOUTHWASH MM SCH (21:19)
[2021-06-05] MEDS: *HR* OxyCODONE/APAP 7.5/325 TABLET PO PRN ×3 (01:36→17:24)
[2021-06-05] MEDS: MethylPREDNISolone 40 MG/ML VIAL IVP SCH ×3 (02:45→17:25)
[2021-06-05] MEDS: *HR* LORazepam 0.5 MG TABLET PO PRN ×2 (04:26→13:31)
[2021-06-05] MEDS: Ipratropium/Albuterol Neb 3 ML IH SCH ×5 (04:38→19:48)
[2021-06-05 04:59] LABS: Basophils % 0.1 %; Immature Granulocytes % 0.3 % (0-4); Lymphocytes # 1.1 K/mcL (0.6-4.6); Lymphocytes % 7.6 %; Mean Corpuscular HGB Conc 32.4 g/dL (31.6-35.5); Mean Corpuscular Volume 92.6 fL (83.0-100.0); Mean Platelet Volume 8.5 fL (9.4-12.4); Monocytes # 0.4 K/mcL (0.0-1.3); Monocytes % 2.9 %; Neutrophils # 13.4 K/mcL (1.6-8.9); Platelet Count 346 K/mcL (140-400); Red Blood Count 3.67 M/mcL (3.82-4.97); Red Cell Distribution Width 13.8 % (11.5-14.5); Segmented Neutrophils % 89.1 %
[2021-06-05 05:17] LABS: Alanine Aminotransferase 8 Units/L (7-52); Albumin 3.5 g/dL (3.5-5.7); Albumin/Globulin Ratio 1.1 (1.1-2.2); Alkaline Phosphatase 73 Units/L (34-104); Aspartate Amino Transferase 12 Units/L (13-39); BUN/Creatinine Ratio 28 (6-26); Bilirubin,Total 0.2 mg/dL (0.3-1.0); Blood Urea Nitrogen 18 mg/dL (8-23); Calcium 8.7 mg/dL (8.6-10.3); Carbon Dioxide 30 mEq/L (23-29); Chloride 103 mEq/L (98-107); Globulin 3.1 g/dL (2.4-3.5); Glucose 106 mg/dL (70-105); Magnesium 2.2 mg/dL (1.6-2.6); Osmolality,Calculated 290 (280-300); Phosphorous 3.4 mg/dL (2.7-4.5); Potassium 4.3 mEq/L (3.5-5.1); Sodium 139 mEq/L (136-145); Total Protein 6.6 g/dL (6.4-8.9); eGFR For African Americans > 60 (> 60); eGFR For Non-African Americans > 60 (> 60)
[2021-06-05] MEDS: Doxycycline 100 MG in 0.9 % Sodium Chloride Mini Bag 100 ML IVPB SCH ×2 (06:20→17:25)
[2021-06-05] MEDS: *HR* Enoxaparin 40 MG/0.4 ML SYRINGE SQ SCH (06:21)
[2021-06-05] MEDS: Budesonide/Formoterol 160/4.5 1 PUFF INH IH SCH ×2 (07:29→19:48)
[2021-06-05] MEDS: Sucralfate 1 GM TABLET PO SCH ×4 (08:18→21:14)
[2021-06-05] MEDS: Insulin LISPRO 300 UNITS/3 ML VIAL SUBQ SCH ×4 (08:21→23:03)
[2021-06-05] MEDS ORDERED: NON-FORMULARY MEDICATION 1 EACH EACH (Fluticasone/Umeclidin/Vilanter [Trelegy Ellipta 100- IH SCH (09:00)
[2021-06-05] MEDS: Gabapentin 300 MG CAPSULE PO SCH ×2 (09:45→21:14)
[2021-06-05] MEDS: Multivit/Ca/Min/Fe/FA 1 TAB TABLET PO SCH (09:46)
[2021-06-05] MEDS: lisinopriL 20 MG TABLET PO SCH (09:46)
[2021-06-05] MEDS: amLODIPine 5 MG TABLET PO SCH (09:47)
[2021-06-05] MEDS: Nicotine 21 MG PATCH.TD24 TD SCH (09:47)
[2021-06-05] MEDS: Chlorhexidine Rinse 15 ML MOUTHWASH MM SCH ×2 (09:48→21:14)
[2021-06-05] MEDS: Aspirin 81 MG TAB.CHEW PO SCH (09:48)
[2021-06-05] MEDS: Ondansetron 4 MG/2 ML VIAL IVP PRN (14:42)
[2021-06-05] MEDS: *HR* Promethazine 25 MG/ML VIAL IM PRN (19:58)
[2021-06-05] MEDS: traZODone 50 MG TABLET PO SCH (21:14)
[2021-06-06] MEDS: Ipratropium/Albuterol Neb 3 ML IH SCH ×4 (00:01→11:46)
[2021-06-06] MEDS: *HR* OxyCODONE/APAP 7.5/325 TABLET PO PRN ×2 (00:02→06:39)
[2021-06-06] MEDS: MethylPREDNISolone 40 MG/ML VIAL IVP SCH ×2 (00:02→08:43)
[2021-06-06] MEDS: Acetaminophen 325 MG TABLET PO PRN (02:11)
[2021-06-06 06:00] LABS: Basophils % 0.1 %; Hematocrit 31.7 % (35.3-44.9); Immature Granulocytes % 0.5 % (0-4); Lymphocytes # 0.9 K/mcL (0.6-4.6); Lymphocytes % 8.2 %; Mean Corpuscular HGB Conc 31.5 g/dL (31.6-35.5); Mean Corpuscular Hemoglobin 29.3 pg (28.0-33.3); Mean Platelet Volume 8.3 fL (9.4-12.4); Monocytes # 0.2 K/mcL (0.0-1.3); Neutrophils # 9.8 K/mcL (1.6-8.9); Platelet Count 301 K/mcL (140-400); Red Blood Count 3.41 M/mcL (3.82-4.97); Red Cell Distribution Width 13.5 % (11.5-14.5); Segmented Neutrophils % 89.2 %
[2021-06-06 06:22] LABS: Alanine Aminotransferase 7 Units/L (7-52); Albumin 3.2 g/dL (3.5-5.7); Albumin/Globulin Ratio 1.3 (1.1-2.2); Alkaline Phosphatase 62 Units/L (34-104); Aspartate Amino Transferase 9 Units/L (13-39); BUN/Creatinine Ratio 38 (6-26); Bilirubin,Total 0.1 mg/dL (0.3-1.0); Blood Urea Nitrogen 24 mg/dL (8-23); Calcium 8.5 mg/dL (8.6-10.3); Carbon Dioxide 30 mEq/L (23-29); Chloride 105 mEq/L (98-107); Globulin 2.4 g/dL (2.4-3.5); Glucose 149 mg/dL (70-105); Magnesium 1.8 mg/dL (1.6-2.6); Osmolality,Calculated 295 (280-300); Phosphorous 2.2 mg/dL (2.7-4.5); Potassium 4.3 mEq/L (3.5-5.1); Sodium 139 mEq/L (136-145); Total Protein 5.6 g/dL (6.4-8.9); eGFR For African Americans > 60 (> 60); eGFR For Non-African Americans > 60 (> 60)
[2021-06-06] MEDS: Doxycycline 100 MG in 0.9 % Sodium Chloride Mini Bag 100 ML IVPB SCH (06:36)
[2021-06-06] MEDS: *HR* Enoxaparin 40 MG/0.4 ML SYRINGE SQ SCH (06:37)
[2021-06-06] MEDS: Insulin LISPRO 300 UNITS/3 ML VIAL SUBQ SCH ×2 (07:20→12:47)
[2021-06-06] MEDS: Budesonide/Formoterol 160/4.5 1 PUFF INH IH SCH (07:46)
[2021-06-06] MEDS: Sucralfate 1 GM TABLET PO SCH ×2 (08:42→12:47)
[2021-06-06] MEDS: Chlorhexidine Rinse 15 ML MOUTHWASH MM SCH (08:42)
[2021-06-06] MEDS: Nicotine 21 MG PATCH.TD24 TD SCH (08:42)
[2021-06-06] MEDS: Gabapentin 300 MG CAPSULE PO SCH (08:43)
[2021-06-06] MEDS: lisinopriL 20 MG TABLET PO SCH (08:43)
[2021-06-06] MEDS: amLODIPine 5 MG TABLET PO SCH (08:44)
[2021-06-06] MEDS: Aspirin 81 MG TAB.CHEW PO SCH (08:44)
[2021-06-06] MEDS: Multivit/Ca/Min/Fe/FA 1 TAB TABLET PO SCH (08:44)
[2021-06-06] MEDS: hydrOXYzine pamoate 25 MG CAPSULE PO PRN (08:46)
[2021-06-06] MEDS: Ondansetron 4 MG/2 ML VIAL IVP PRN (08:46)
[2021-06-06] MEDS: Calcium Gluconate 1gm/50mL 1 GM/50 ML BAG IVPB SCH ×2 (11:23→11:27)
[2021-06-06] MEDS ORDERED: ALPRAZolam 0.5 MG TABLET PO ONE (11:26)
[2021-06-06 12:18] VITALS: BP 176/94; PULSE 78; TEMP 98.1; O2SAT 96
== END 2021-06-06 15:29 | disposition home or self-care (01) | DRG 190 ==
LOC: EMEROOARM 17:49 → 2ANU 17:49 → SUATTDRO 20:19 → 2ANU 21:30
PROVIDERS: ADMIT Pharmacist; ATTEND Internal Medicine

== ENCOUNTER 2021-07-06 13:08 | Inpatient (IN) ==
[2021-07-06] MEDS ORDERED: 0.9 % Sodium Chloride 500 ML IV ONE (13:48)
[2021-07-06] MEDS ORDERED: Isovue-370 500 ML BOTTLE IVP ONE (13:51)
[2021-07-06 15:17] LABS: Basophils % 0.4 %; Eosinophils % 0.1 %; Hematocrit 40.1 % (35.3-44.9); Immature Granulocytes % 0.4 % (0-4); Lymphocytes # 1.4 K/mcL (0.6-4.6); Lymphocytes % 20.7 %; Mean Corpuscular HGB Conc 32.4 g/dL (31.6-35.5); Mean Corpuscular Hemoglobin 29.4 pg (28.0-33.3); Mean Corpuscular Volume 90.7 fL (83.0-100.0); Mean Platelet Volume 8.7 fL (9.4-12.4); Monocytes # 0.3 K/mcL (0.0-1.3); Platelet Count 358 K/mcL (140-400); Red Blood Count 4.42 M/mcL (3.82-4.97); Red Cell Distribution Width 13.5 % (11.5-14.5); Segmented Neutrophils % 73.4 %; White Blood Count 6.9 K/mcL (4.3-11.1)
[2021-07-06 15:44] LABS: BUN/Creatinine Ratio 14 (6-26); Blood Urea Nitrogen 9 mg/dL (8-23); Calcium 9.6 mg/dL (8.6-10.3); Carbon Dioxide 27 mEq/L (23-29); Chloride 99 mEq/L (98-107); Ethanol < 10 mg/dL (Less than 10); Glucose 101 mg/dL (70-105); Osmolality,Calculated 281 (280-300); Potassium 4.2 mEq/L (3.5-5.1); Sodium 136 mEq/L (136-145); Troponin I < 0.03 ng/mL (< 0.04); eGFR For African Americans > 60 (> 60); eGFR For Non-African Americans > 60 (> 60)
[2021-07-06 16:01] LABS: Influenza A PCR Negative (Negative); Influenza B PCR Negative (Negative); Resp. Syncytial Virus PCR Negative (Negative)
[2021-07-06 16:02] LABS: SARS-CoV-2 by PCR (In House) Negative (Negative)
[2021-07-06 16:58] LABS: Bilirubin,Urine Negative (Negative); Blood,Urine Negative (Negative); Clarity,Urine Clear (Clear); Color,Urine Light-Yellow (Yellow); Glucose,Urine (UA) Normal (Normal); Ketones,Urine 20 mg/dL (Negative); Leukocyte Esterase,Urine Trace (Negative); Mucus,Urine Few per lpf (None-Few); Nitrite,Urine Negative (Negative); Protein,Urine Trace mg/dL (Neg-Trace); RBC,Urine 0-3 per hpf (0-3); Specific Gravity,Urine 1.019 (1.010-1.025); Squamous Epithelial Cell,Urine Few per hpf (None-Few); Urobilinogen,Urine Normal (Normal); WBC,Urine 0-3 per hpf (0-3)
[2021-07-06 17:15] LABS: Amphetamine Screen,Urine Negative ng/mL (Cutoff=1000); Barbiturate Screen,Urine Negative ng/mL (Cutoff=200); Benzodiazepines Screen,Urine Negative ng/mL (Cutoff=200); Cannabinoid Screen,Urine Positive ng/mL (Cutoff = 50); Cocaine Screen,Urine Negative ng/mL (Cutoff= 300); Opiate Screen,Urine Positive ng/mL (Cutoff=300); Phencyclidine Screen,Urine Negative ng/mL (Cutoff=25)
[2021-07-06] MEDS ORDERED: cefTRIAXone 1,000 MG in 0.9 % Sodium Chloride Mini Bag 100 ML IVPB ONE (18:03)
[2021-07-06] MEDS ORDERED: methylPREDNISolone 125 MG/2 ML VIAL IVP ONE (18:19)
[2021-07-06] MEDS ORDERED: Ondansetron 4 MG/2 ML VIAL IVP ONE (19:16)
[2021-07-06] MEDS ORDERED: Naloxone 0.4 MG/ML INJ IVP PRN (19:43)
[2021-07-06] MEDS ORDERED: Melatonin 3 MG TABLET PO PRN (19:43)
[2021-07-06] MEDS: Azithromycin 500 MG in 0.9 % Sodium Chloride 250 ML IVPB SCH (23:08)
[2021-07-06] MEDS: Nicotine 21 MG PATCH.TD24 TD SCH (23:09)
[2021-07-06] MEDS: Ipratropium/Albuterol Neb 3 ML IH SCH (23:21)
[2021-07-06] MEDS: Budesonide/Formoterol 160/4.5 1 PUFF INH IH SCH (23:21)
[2021-07-06] MEDS ORDERED: lisinopriL 20 MG TABLET PO SCH (23:30)
[2021-07-07] MEDS: traZODone 50 MG TABLET PO SCH ×2 (00:39→20:03)
[2021-07-07] MEDS: Ipratropium/Albuterol Neb 3 ML IH SCH ×4 (04:11→20:18)
[2021-07-07] MEDS: MethylPREDNISolone 40 MG/ML VIAL IVP SCH ×3 (05:36→22:03)
[2021-07-07] MEDS: *HR* Heparin 5,000 UNIT/ML VIAL SQ SCH ×2 (05:37→18:12)
[2021-07-07] MEDS ORDERED: lisinopriL 20 MG TABLET PO SCH (09:00)
[2021-07-07] MEDS ORDERED: amLODIPine 5 MG TABLET PO SCH ×2 (09:00)
[2021-07-07] MEDS: lisinopriL 20 MG TABLET PO SCH (09:56)
[2021-07-07] MEDS: Gabapentin 300 MG CAPSULE PO SCH ×2 (09:57→20:03)
[2021-07-07] MEDS: amLODIPine 5 MG TABLET PO SCH (09:57)
[2021-07-07] MEDS: Nicotine 21 MG PATCH.TD24 TD SCH ×2 (09:57→18:21)
[2021-07-07] MEDS: Budesonide/Formoterol 160/4.5 1 PUFF INH IH SCH ×2 (11:18→20:18)
[2021-07-07] MEDS: *HR* OxyCODONE/APAP 7.5/325 TABLET PO PRN ×2 (11:37→18:11)
[2021-07-07] MEDS: Azithromycin 500 MG in 0.9 % Sodium Chloride 250 ML IVPB SCH (20:03)
[2021-07-08] MEDS: *HR* OxyCODONE/APAP 7.5/325 TABLET PO PRN ×4 (00:25→20:22)
[2021-07-08] MEDS: Ipratropium/Albuterol Neb 3 ML IH SCH ×4 (03:49→20:12)
[2021-07-08] MEDS: MethylPREDNISolone 40 MG/ML VIAL IVP SCH ×3 (06:33→20:23)
[2021-07-08] MEDS: *HR* Heparin 5,000 UNIT/ML VIAL SQ SCH ×2 (06:33→17:16)
[2021-07-08] MEDS: Loratadine 10 MG TABLET PO SCH (08:15)
[2021-07-08] MEDS: lisinopriL 20 MG TABLET PO SCH (08:16)
[2021-07-08] MEDS: amLODIPine 5 MG TABLET PO SCH (08:16)
[2021-07-08] MEDS: Aspirin 81 MG TAB.CHEW PO SCH (08:16)
[2021-07-08] MEDS: Gabapentin 300 MG CAPSULE PO SCH ×2 (08:16→20:22)
[2021-07-08] MEDS ORDERED: NON-FORMULARY MEDICATION 1 EACH EACH (Fluticasone/Umeclidin/Vilanter [Trelegy Ellipta 100- IH SCH (09:00)
[2021-07-08] MEDS: Sucralfate 1 GM TABLET PO SCH ×4 (09:07→21:11)
[2021-07-08] MEDS: Budesonide/Formoterol 160/4.5 1 PUFF INH IH SCH ×2 (09:16→20:12)
[2021-07-08] MEDS: traZODone 50 MG TABLET PO SCH (20:22)
[2021-07-08] MEDS ORDERED: Azithromycin 250 MG TABLET PO SCH (21:00)
[2021-07-09] MEDS: Ipratropium/Albuterol Neb 3 ML IH SCH ×4 (04:19→21:22)
[2021-07-09] MEDS: *HR* OxyCODONE/APAP 7.5/325 TABLET PO PRN ×4 (04:31→23:29)
[2021-07-09 04:47] LABS: Hematocrit 32.3 % (35.3-44.9); Hemoglobin 10.6 g/dL (11.5-15.4); Mean Corpuscular HGB Conc 32.8 g/dL (31.6-35.5); Mean Corpuscular Hemoglobin 30.1 pg (28.0-33.3); Mean Corpuscular Volume 91.8 fL (83.0-100.0); Mean Platelet Volume 8.7 fL (9.4-12.4); Platelet Count 288 K/mcL (140-400); Red Blood Count 3.52 M/mcL (3.82-4.97); Red Cell Distribution Width 13.8 % (11.5-14.5); White Blood Count 11.8 K/mcL (4.3-11.1)
[2021-07-09 05:06] LABS: BUN/Creatinine Ratio 39 (6-26); Blood Urea Nitrogen 24 mg/dL (8-23); Calcium 9.1 mg/dL (8.6-10.3); Carbon Dioxide 25 mEq/L (23-29); Chloride 108 mEq/L (98-107); Glucose 104 mg/dL (70-105); Osmolality,Calculated 294 (280-300); Potassium 4.1 mEq/L (3.5-5.1); Sodium 140 mEq/L (136-145); eGFR For African Americans > 60 (> 60); eGFR For Non-African Americans > 60 (> 60)
[2021-07-09] MEDS: MethylPREDNISolone 40 MG/ML VIAL IVP SCH ×3 (06:19→22:06)
[2021-07-09] MEDS: *HR* Heparin 5,000 UNIT/ML VIAL SQ SCH ×2 (06:19→17:12)
[2021-07-09] MEDS: Budesonide/Formoterol 160/4.5 1 PUFF INH IH SCH ×2 (07:59→21:22)
[2021-07-09] MEDS: Aspirin 81 MG TAB.CHEW PO SCH (08:31)
[2021-07-09] MEDS: Gabapentin 300 MG CAPSULE PO SCH ×2 (08:31→22:06)
[2021-07-09] MEDS: lisinopriL 20 MG TABLET PO SCH (08:31)
[2021-07-09] MEDS: amLODIPine 5 MG TABLET PO SCH (08:31)
[2021-07-09] MEDS: Sucralfate 1 GM TABLET PO SCH ×4 (08:31→23:29)
[2021-07-09] MEDS: Nicotine 21 MG PATCH.TD24 TD SCH (08:32)
[2021-07-09] MEDS: Loratadine 10 MG TABLET PO SCH (08:32)
[2021-07-09] MEDS: Azithromycin 250 MG TABLET PO SCH (14:20)
[2021-07-09] MEDS: traZODone 50 MG TABLET PO SCH (22:06)
[2021-07-10] MEDS: Ipratropium/Albuterol Neb 3 ML IH SCH ×2 (04:05→10:31)
[2021-07-10] MEDS: *HR* Heparin 5,000 UNIT/ML VIAL SQ SCH (05:10)
[2021-07-10] MEDS: MethylPREDNISolone 40 MG/ML VIAL IVP SCH ×2 (05:10→13:17)
[2021-07-10] MEDS: *HR* OxyCODONE/APAP 7.5/325 TABLET PO PRN (06:11)
[2021-07-10] MEDS: Nicotine 21 MG PATCH.TD24 TD SCH (07:54)
[2021-07-10] MEDS: amLODIPine 5 MG TABLET PO SCH (07:54)
[2021-07-10] MEDS: Gabapentin 300 MG CAPSULE PO SCH (07:54)
[2021-07-10] MEDS: Aspirin 81 MG TAB.CHEW PO SCH (07:55)
[2021-07-10] MEDS: Sucralfate 1 GM TABLET PO SCH ×2 (07:55→11:40)
[2021-07-10] MEDS: Loratadine 10 MG TABLET PO SCH (07:55)
[2021-07-10] MEDS: Azithromycin 250 MG TABLET PO SCH (07:55)
[2021-07-10] MEDS: lisinopriL 20 MG TABLET PO SCH (07:55)
[2021-07-10 10:00] VITALS: BP 160/88; PULSE 72; TEMP 97.7; O2SAT 96
[2021-07-10] MEDS: Budesonide/Formoterol 160/4.5 1 PUFF INH IH SCH (10:31)
== END 2021-07-10 14:10 | disposition home or self-care (01) | DRG 190 ==
LOC: 3BNU 13:08 → EMEROOARM 13:08 → SUATTDRO 21:00 → 3ANU 21:40
PROVIDERS: ADMIT Internal Medicine; ATTEND Internal Medicine

== ENCOUNTER 2021-07-29 19:58 | Inpatient (IN) ==
[2021-07-29] MEDS ORDERED: Ipratropium/Albuterol Neb 3 ML IH ONE ×3 (20:34→21:55)
[2021-07-29] MEDS ORDERED: methylPREDNISolone 125 MG/2 ML VIAL IVP ONE (20:37)
[2021-07-29 21:17] LABS: VBG HCO3 34 mEq/L (21-27); VBG PCO2 62 mmHg (41-51); VBG PH 7.34 pH Units (7.32-7.42); VBG PO2 35 mmHg (25-50)
[2021-07-29 21:18] LABS: Basophils % 0.4 %; Eosinophils % 0.2 %; Hematocrit 39.4 % (35.3-44.9); Hemoglobin 12.6 g/dL (11.5-15.4); Immature Granulocytes % 0.2 % (0-4); Lymphocytes # 2.9 K/mcL (0.6-4.6); Lymphocytes % 34.5 %; Mean Corpuscular Hemoglobin 29.7 pg (28.0-33.3); Mean Corpuscular Volume 92.9 fL (83.0-100.0); Mean Platelet Volume 8.4 fL (9.4-12.4); Monocytes # 0.6 K/mcL (0.0-1.3); Monocytes % 7.2 %; Neutrophils # 4.8 K/mcL (1.6-8.9); Platelet Count 341 K/mcL (140-400); Red Blood Count 4.24 M/mcL (3.82-4.97); Red Cell Distribution Width 14.6 % (11.5-14.5); Segmented Neutrophils % 57.5 %; White Blood Count 8.4 K/mcL (4.3-11.1)
[2021-07-29 21:26] LABS: Prothrombin Time 11.4 Seconds (9.4-12.1)
[2021-07-29 21:29] LABS: Activated Partial Thrombo Time 30.4 Seconds (26.0-36.0)
[2021-07-29 21:36] LABS: Influenza A PCR Negative (Negative); Influenza B PCR Negative (Negative); Resp. Syncytial Virus PCR Negative (Negative)
[2021-07-29 21:38] LABS: SARS-CoV-2 by PCR (In House) Negative (Negative)
[2021-07-29 21:40] LABS: Alanine Aminotransferase 9 Units/L (7-52); Albumin 4.2 g/dL (3.5-5.7); Albumin/Globulin Ratio 1.2 (1.1-2.2); Alkaline Phosphatase 72 Units/L (34-104); Aspartate Amino Transferase 11 Units/L (13-39); BUN/Creatinine Ratio 20 (6-26); Bilirubin,Total 0.3 mg/dL (0.3-1.0); Blood Urea Nitrogen 13 mg/dL (8-23); Calcium 9.7 mg/dL (8.6-10.3); Carbon Dioxide 30 mEq/L (23-29); Chloride 99 mEq/L (98-107); Globulin 3.4 g/dL (2.4-3.5); Glucose 103 mg/dL (70-105); Osmolality,Calculated 286 (280-300); Sodium 138 mEq/L (136-145); Total Protein 7.6 g/dL (6.4-8.9); Troponin I < 0.03 ng/mL (< 0.04); eGFR For African Americans > 60 (> 60); eGFR For Non-African Americans > 60 (> 60)
[2021-07-29] MEDS ORDERED: *HR* LORazepam 2 MG/ML VIAL IVP ONE (21:55)
[2021-07-29] MEDS ORDERED: Acetaminophen 325 MG TABLET PO PRN (23:40)
[2021-07-29] MEDS ORDERED: Naloxone 0.4 MG/ML INJ IVP PRN (23:40)
[2021-07-29] MEDS ORDERED: *HR* HYDROcodone/Acet 5/325 mg TABLET PO PRN (23:40)
[2021-07-29] MEDS ORDERED: Ipratropium/Albuterol Neb 3 ML IH PRN (23:41)
[2021-07-30] MEDS ORDERED: Nicotine 2 MG GUM BC PRN (00:02)
[2021-07-30] MEDS: Nicotine 21 MG PATCH.TD24 TD SCH (01:18)
[2021-07-30] MEDS: Melatonin 3 MG TABLET PO PRN ×2 (01:18→20:32)
[2021-07-30] MEDS: *HR* OxyCODONE/APAP 7.5/325 TABLET PO PRN ×2 (01:18→08:19)
[2021-07-30] MEDS: traZODone 50 MG TABLET PO SCH ×2 (03:15→20:31)
[2021-07-30] MEDS: Ipratropium/Albuterol Neb 3 ML IH SCH ×6 (04:28→20:59)
[2021-07-30] MEDS: *HR* Enoxaparin 40 MG/0.4 ML SYRINGE SQ SCH (05:42)
[2021-07-30] MEDS ORDERED: MethylPREDNISolone 40 MG/ML VIAL IVP SCH (06:00)
[2021-07-30 06:04] LABS: Basophils % 0.2 %; Hematocrit 37.6 % (35.3-44.9); Hemoglobin 12.3 g/dL (11.5-15.4); Immature Granulocytes % 0.3 % (0-4); Lymphocytes # 0.6 K/mcL (0.6-4.6); Lymphocytes % 8.9 %; Mean Corpuscular HGB Conc 32.7 g/dL (31.6-35.5); Mean Corpuscular Hemoglobin 30.1 pg (28.0-33.3); Mean Corpuscular Volume 91.9 fL (83.0-100.0); Mean Platelet Volume 8.5 fL (9.4-12.4); Monocytes % 0.5 %; Neutrophils # 5.9 K/mcL (1.6-8.9); Platelet Count 310 K/mcL (140-400); Red Blood Count 4.09 M/mcL (3.82-4.97); Red Cell Distribution Width 14.4 % (11.5-14.5); Segmented Neutrophils % 90.1 %; White Blood Count 6.5 K/mcL (4.3-11.1)
[2021-07-30 06:13] LABS: Prothrombin Time 11.5 Seconds (9.4-12.1)
[2021-07-30] MEDS: Aspirin 81 MG TAB.CHEW PO SCH (08:19)
[2021-07-30] MEDS: amLODIPine 5 MG TABLET PO SCH (08:19)
[2021-07-30] MEDS: Ondansetron 4 MG/2 ML VIAL IVP PRN ×2 (08:20→16:27)
[2021-07-30 08:31] LABS: BUN/Creatinine Ratio 30 (6-26); Blood Urea Nitrogen 18 mg/dL (8-23); Calcium 9.5 mg/dL (8.6-10.3); Carbon Dioxide 30 mEq/L (23-29); Chloride 100 mEq/L (98-107); Chol/HDL Ratio 2.6 (0-4.9); Cholesterol 210 mg/dL (< 200); Glucose 162 mg/dL (70-105); HDL Cholesterol 81 mg/dL (40-59); LDL Cholesterol,Calculated 113 mg/dL (< 100); Magnesium 1.8 mg/dL (1.6-2.6); Osmolality,Calculated 291 (280-300); Potassium 4.5 mEq/L (3.5-5.1); Sodium 138 mEq/L (136-145); Triglycerides 80 mg/dL (< 150); eGFR For African Americans > 60 (> 60); eGFR For Non-African Americans > 60 (> 60)
[2021-07-30] MEDS ORDERED: lisinopriL 20 MG TABLET PO SCH (09:00)
[2021-07-30] MEDS ORDERED: levoFLOXacin 750 MG/150 ML 750 MG/150 ML BAG IVPB SCH (09:00)
[2021-07-30] MEDS: Loratadine 10 MG TABLET PO SCH (10:06)
[2021-07-30] MEDS: predniSONE 20 MG TABLET PO SCH (10:06)
[2021-07-30] MEDS: Budesonide Neb 0.5 MG/2 ML IH SCH ×2 (11:13→20:59)
[2021-07-30] MEDS ORDERED: *HR* Promethazine 25 MG/ML VIAL IM ONE (13:05)
[2021-07-30] MEDS ORDERED: Perflutren Lipid Microsphere 1.3 ML in 0.9 % Sodium Chloride 8.7 ML IVP PRN (13:54)
[2021-07-30] MEDS: *HR* OxyCODONE/APAP 10/325 TABLET PO PRN ×2 (14:30→20:32)
[2021-07-30] MEDS ORDERED: hydrOXYzine pamoate 25 MG CAPSULE PO PRN (15:21)
[2021-07-30] MEDS: Sucralfate 1 GM TABLET PO SCH (16:27)
[2021-07-30] MEDS ORDERED: *HR* LORazepam 2 MG/ML VIAL IVP ONE (20:05)
[2021-07-30] MEDS: *HR* Promethazine 25 MG/ML VIAL IM PRN (20:32)
[2021-07-30] MEDS: Gabapentin 300 MG CAPSULE PO SCH (20:32)
[2021-07-30] MEDS: Levalbuterol Neb 1.25 MG/3 ML IH SCH (23:38)
[2021-07-31] MEDS: *HR* OxyCODONE/APAP 10/325 TABLET PO PRN ×4 (02:46→21:37)
[2021-07-31] MEDS: Ondansetron 4 MG/2 ML VIAL IVP PRN (03:48)
[2021-07-31] MEDS: Levalbuterol Neb 1.25 MG/3 ML IH SCH ×4 (04:10→20:12)
[2021-07-31] MEDS: *HR* Enoxaparin 40 MG/0.4 ML SYRINGE SQ SCH (05:16)
[2021-07-31 05:20] LABS: Calcium 9.8 mg/dL (8.6-10.3); Magnesium 1.8 mg/dL (1.6-2.6); Potassium 4.6 mEq/L (3.5-5.1)
[2021-07-31 05:23] LABS: Basophils % 0.1 %; Hematocrit 38.2 % (35.3-44.9); Hemoglobin 12.1 g/dL (11.5-15.4); Immature Granulocytes % 0.4 % (0-4); Lymphocytes # 1.8 K/mcL (0.6-4.6); Lymphocytes % 10.5 %; Mean Corpuscular HGB Conc 31.7 g/dL (31.6-35.5); Mean Corpuscular Hemoglobin 29.6 pg (28.0-33.3); Mean Corpuscular Volume 93.4 fL (83.0-100.0); Mean Platelet Volume 8.8 fL (9.4-12.4); Monocytes # 1.3 K/mcL (0.0-1.3); Monocytes % 7.6 %; Neutrophils # 13.8 K/mcL (1.6-8.9); Platelet Count 332 K/mcL (140-400); Red Blood Count 4.09 M/mcL (3.82-4.97); Red Cell Distribution Width 14.8 % (11.5-14.5); Segmented Neutrophils % 81.4 %
[2021-07-31] MEDS: Nicotine 21 MG PATCH.TD24 TD SCH (07:46)
[2021-07-31] MEDS ORDERED: levoFLOXacin 750 MG/150 ML 750 MG/150 ML BAG IVPB SCH (09:00)
[2021-07-31] MEDS: amLODIPine 5 MG TABLET PO SCH (09:04)
[2021-07-31] MEDS: predniSONE 20 MG TABLET PO SCH (09:04)
[2021-07-31] MEDS: Multivit/Ca/Min/Fe/FA 1 TAB TABLET PO SCH (09:04)
[2021-07-31] MEDS: Gabapentin 300 MG CAPSULE PO SCH ×2 (09:04→20:41)
[2021-07-31] MEDS: Sucralfate 1 GM TABLET PO SCH ×3 (09:04→15:36)
[2021-07-31] MEDS: Aspirin 81 MG TAB.CHEW PO SCH (09:04)
[2021-07-31] MEDS: Loratadine 10 MG TABLET PO SCH (09:04)
[2021-07-31] MEDS: Budesonide Neb 0.5 MG/2 ML IH SCH ×2 (10:09→20:12)
[2021-07-31] MEDS: *HR* Promethazine 25 MG/ML VIAL IM PRN ×2 (12:13→20:41)
[2021-07-31] MEDS ORDERED: 0.9 % Sodium Chloride 1,000 ML IVC SCH (12:15)
[2021-07-31] MEDS: ALPRAZolam 0.5 MG TABLET PO PRN ×2 (13:03→21:38)
[2021-07-31] MEDS: Melatonin 3 MG TABLET PO PRN (20:39)
[2021-07-31] MEDS: traZODone 50 MG TABLET PO SCH (20:40)
[2021-07-31] MEDS ORDERED: TRAZODONE HCL 150 MG PO SCH (21:00)
[2021-08-01] MEDS: Levalbuterol Neb 1.25 MG/3 ML IH SCH ×4 (03:46→20:56)
[2021-08-01] MEDS: *HR* OxyCODONE/APAP 10/325 TABLET PO PRN (04:55)
[2021-08-01] MEDS: Nicotine 21 MG PATCH.TD24 TD SCH (04:56)
[2021-08-01] MEDS: *HR* Enoxaparin 40 MG/0.4 ML SYRINGE SQ SCH (04:56)
[2021-08-01] MEDS: *HR* Promethazine 25 MG/ML VIAL IM PRN ×3 (04:58→19:32)
[2021-08-01] MEDS: ALPRAZolam 0.5 MG TABLET PO PRN ×3 (05:46→22:13)
[2021-08-01 05:59] LABS: Eosinophils % 0.1 %; Hematocrit 32.2 % (35.3-44.9); Immature Granulocytes % 0.5 % (0-4); Lymphocytes % 17.3 %; Mean Corpuscular HGB Conc 31.1 g/dL (31.6-35.5); Mean Corpuscular Hemoglobin 29.7 pg (28.0-33.3); Mean Corpuscular Volume 95.5 fL (83.0-100.0); Mean Platelet Volume 8.6 fL (9.4-12.4); Monocytes # 0.7 K/mcL (0.0-1.3); Monocytes % 6.4 %; Neutrophils # 8.6 K/mcL (1.6-8.9); Platelet Count 260 K/mcL (140-400); Red Blood Count 3.37 M/mcL (3.82-4.97); Red Cell Distribution Width 15.1 % (11.5-14.5); Segmented Neutrophils % 75.7 %; White Blood Count 11.3 K/mcL (4.3-11.1)
[2021-08-01 06:20] LABS: BUN/Creatinine Ratio 37 (6-26); Blood Urea Nitrogen 27 mg/dL (8-23); Calcium 8.5 mg/dL (8.6-10.3); Carbon Dioxide 25 mEq/L (23-29); Chloride 108 mEq/L (98-107); Glucose 113 mg/dL (70-105); Magnesium 1.6 mg/dL (1.6-2.6); Osmolality,Calculated 294 (280-300); Potassium 4.4 mEq/L (3.5-5.1); Sodium 139 mEq/L (136-145); eGFR For African Americans > 60 (> 60); eGFR For Non-African Americans > 60 (> 60)
[2021-08-01] MEDS: Multivit/Ca/Min/Fe/FA 1 TAB TABLET PO SCH (08:50)
[2021-08-01] MEDS: Sucralfate 1 GM TABLET PO SCH ×3 (08:51→15:40)
[2021-08-01] MEDS: Loratadine 10 MG TABLET PO SCH (08:51)
[2021-08-01] MEDS: Aspirin 81 MG TAB.CHEW PO SCH (08:51)
[2021-08-01] MEDS: Gabapentin 300 MG CAPSULE PO SCH ×2 (08:51→19:31)
[2021-08-01] MEDS: predniSONE 20 MG TABLET PO SCH (08:51)
[2021-08-01] MEDS: Budesonide Neb 0.5 MG/2 ML IH SCH ×2 (11:21→20:56)
[2021-08-01] MEDS: *HR* OxyCODONE Immed Rel 5 MG TABLET PO PRN ×4 (11:29→23:42)
[2021-08-01] MEDS: MethylPREDNISolone 40 MG/ML VIAL IVP SCH (16:52)
[2021-08-01] MEDS: Melatonin 3 MG TABLET PO PRN (19:31)
[2021-08-01] MEDS: traZODone 50 MG TABLET PO SCH (19:31)
[2021-08-02] MEDS: Nicotine 21 MG PATCH.TD24 TD SCH (00:30)
[2021-08-02] MEDS: *HR* Promethazine 25 MG/ML VIAL IM PRN ×4 (01:32→20:39)
[2021-08-02] MEDS: *HR* OxyCODONE Immed Rel 5 MG TABLET PO PRN ×2 (03:55→08:56)
[2021-08-02] MEDS: Levalbuterol Neb 1.25 MG/3 ML IH SCH ×4 (05:02→22:59)
[2021-08-02] MEDS: ALPRAZolam 0.5 MG TABLET PO PRN ×3 (06:35→20:40)
[2021-08-02] MEDS: *HR* Enoxaparin 40 MG/0.4 ML SYRINGE SQ SCH (06:36)
[2021-08-02] MEDS: MethylPREDNISolone 40 MG/ML VIAL IVP SCH ×2 (06:36→17:59)
[2021-08-02] MEDS: Sucralfate 1 GM TABLET PO SCH ×3 (08:55→15:15)
[2021-08-02] MEDS: Multivit/Ca/Min/Fe/FA 1 TAB TABLET PO SCH (08:55)
[2021-08-02] MEDS: Aspirin 81 MG TAB.CHEW PO SCH (08:55)
[2021-08-02] MEDS: Loratadine 10 MG TABLET PO SCH (08:56)
[2021-08-02] MEDS: Gabapentin 300 MG CAPSULE PO SCH ×2 (08:56→20:40)
[2021-08-02] MEDS ORDERED: *HR* OxyCODONE/APAP 5/325 TABLET PO PRN (09:12)
[2021-08-02] MEDS: Budesonide Neb 0.5 MG/2 ML IH SCH ×2 (09:59→22:59)
[2021-08-02] MEDS: *HR* OxyCODONE/APAP 10/325 TABLET PO PRN ×2 (17:59→23:57)
[2021-08-02] MEDS: traZODone 50 MG TABLET PO SCH (20:41)
[2021-08-03] MEDS: Nicotine 21 MG PATCH.TD24 TD SCH (00:58)
[2021-08-03 01:28] LABS: Hematocrit 34.2 % (35.3-44.9); Hemoglobin 10.8 g/dL (11.5-15.4); Mean Corpuscular HGB Conc 31.6 g/dL (31.6-35.5); Mean Platelet Volume 8.8 fL (9.4-12.4); Platelet Count 299 K/mcL (140-400); Red Cell Distribution Width 14.6 % (11.5-14.5); White Blood Count 11.4 K/mcL (4.3-11.1)
[2021-08-03 01:50] LABS: BUN/Creatinine Ratio 38 (6-26); Blood Urea Nitrogen 25 mg/dL (8-23); Calcium 8.7 mg/dL (8.6-10.3); Carbon Dioxide 27 mEq/L (23-29); Chloride 105 mEq/L (98-107); Glucose 159 mg/dL (70-105); Osmolality,Calculated 296 (280-300); Sodium 139 mEq/L (136-145); eGFR For African Americans > 60 (> 60); eGFR For Non-African Americans > 60 (> 60)
[2021-08-03] MEDS: Levalbuterol Neb 1.25 MG/3 ML IH SCH ×4 (03:44→20:04)
[2021-08-03] MEDS: *HR* Promethazine 25 MG/ML VIAL IM PRN ×3 (03:46→20:18)
[2021-08-03] MEDS: *HR* OxyCODONE/APAP 10/325 TABLET PO PRN ×3 (06:08→20:18)
[2021-08-03] MEDS: MethylPREDNISolone 40 MG/ML VIAL IVP SCH ×2 (06:08→17:20)
[2021-08-03] MEDS: *HR* Enoxaparin 40 MG/0.4 ML SYRINGE SQ SCH (06:09)
[2021-08-03] MEDS: Budesonide Neb 0.5 MG/2 ML IH SCH ×2 (09:23→20:04)
[2021-08-03] MEDS: Gabapentin 300 MG CAPSULE PO SCH ×2 (10:11→20:18)
[2021-08-03] MEDS: Loratadine 10 MG TABLET PO SCH (10:11)
[2021-08-03] MEDS: amLODIPine 5 MG TABLET PO SCH (10:11)
[2021-08-03] MEDS: Multivit/Ca/Min/Fe/FA 1 TAB TABLET PO SCH (10:11)
[2021-08-03] MEDS: Aspirin 81 MG TAB.CHEW PO SCH (10:12)
[2021-08-03] MEDS: ALPRAZolam 0.5 MG TABLET PO PRN ×2 (10:12→21:18)
[2021-08-03] MEDS: Sucralfate 1 GM TABLET PO SCH ×3 (10:12→17:20)
[2021-08-03] MEDS: traZODone 50 MG TABLET PO SCH (20:18)
[2021-08-04] MEDS: Nicotine 21 MG PATCH.TD24 TD SCH (00:20)
[2021-08-04] MEDS: Levalbuterol Neb 1.25 MG/3 ML IH SCH ×2 (03:02→10:18)
[2021-08-04] MEDS ORDERED: *HR* Metoprolol 5 MG/5 ML VIAL IVP ONE (04:17)
[2021-08-04] MEDS: *HR* OxyCODONE/APAP 10/325 TABLET PO PRN ×2 (04:22→10:44)
[2021-08-04] MEDS: *HR* Enoxaparin 40 MG/0.4 ML SYRINGE SQ SCH (04:23)
[2021-08-04] MEDS: *HR* Promethazine 25 MG/ML VIAL IM PRN (04:23)
[2021-08-04] MEDS: MethylPREDNISolone 40 MG/ML VIAL IVP SCH (04:25)
[2021-08-04 07:21] VITALS: BP 165/86; PULSE 92; TEMP 97.6
[2021-08-04] MEDS: Multivit/Ca/Min/Fe/FA 1 TAB TABLET PO SCH (07:41)
[2021-08-04] MEDS: Aspirin 81 MG TAB.CHEW PO SCH (07:41)
[2021-08-04] MEDS: Gabapentin 300 MG CAPSULE PO SCH (07:41)
[2021-08-04] MEDS: ALPRAZolam 0.5 MG TABLET PO PRN (07:41)
[2021-08-04] MEDS: Loratadine 10 MG TABLET PO SCH (07:42)
[2021-08-04] MEDS: amLODIPine 5 MG TABLET PO SCH (07:42)
[2021-08-04] MEDS: Sucralfate 1 GM TABLET PO SCH ×2 (07:42→10:44)
[2021-08-04] MEDS ORDERED: lisinopriL 20 MG TABLET PO SCH (09:00)
[2021-08-04] MEDS: Budesonide Neb 0.5 MG/2 ML IH SCH (10:21)
[2021-08-04 12:26] VITALS: O2SAT 96
== END 2021-08-04 13:59 | disposition home or self-care (01) | DRG 190 ==
LOC: EMEROOARM 19:58 → 3BNU 19:58 → SUATTDRO 23:36 → 3BNU 07-30 00:46 → SUATTDRO 07-31 15:12
PROVIDERS: ADMIT Family Medicine; ATTEND Internal Medicine

== ENCOUNTER 2021-08-08 01:51 | Inpatient (IN) ==
[2021-08-08] MEDS ORDERED: methylPREDNISolone 125 MG/2 ML VIAL IVP ONE (02:01)
[2021-08-08] MEDS ORDERED: Ipratropium/Albuterol Neb 3 ML IH ONE (02:01)
[2021-08-08 02:16] LABS: ABG Base Excess 4 mEq/L (-2 to 3); ABG HCO3 31 mEq/L (21-27); ABG Oxygen Saturation 100 % (95-98); ABG PCO2 54 mmHg (35-45); ABG PH 7.36 pH Units (7.32-7.45); ABG PO2 222 mmHg (85-104); ABG TCO2 32 mEq/L (20-26)
[2021-08-08 02:20] LABS: Basophils # 0.1 K/mcL (0.0-0.2); Basophils % 0.4 %; Eosinophils % 0.1 %; Hematocrit 38.9 % (35.3-44.9); Immature Granulocytes % 2.9 % (0-4); Lymphocytes # 2.5 K/mcL (0.6-4.6); Mean Corpuscular HGB Conc 32.4 g/dL (31.6-35.5); Mean Corpuscular Hemoglobin 30.3 pg (28.0-33.3); Mean Corpuscular Volume 93.5 fL (83.0-100.0); Mean Platelet Volume 8.9 fL (9.4-12.4); Monocytes # 0.9 K/mcL (0.0-1.3); Monocytes % 5.9 %; Neutrophils # 11.6 K/mcL (1.6-8.9); Nucleated Red Blood Cells 0.3 /100 WBC (0); Platelet Count 389 K/mcL (140-400); Red Blood Count 4.16 M/mcL (3.82-4.97); Red Cell Distribution Width 15.4 % (11.5-14.5); Segmented Neutrophils % 74.7 %; White Blood Count 15.6 K/mcL (4.3-11.1)
[2021-08-08 02:21] LABS: Hemoglobin 12.6 g/dL (11.5-15.4)
[2021-08-08 02:42] LABS: Alanine Aminotransferase 23 Units/L (7-52); Albumin 4.1 g/dL (3.5-5.7); Albumin/Globulin Ratio 1.1 (1.1-2.2); Alkaline Phosphatase 48 Units/L (34-104); Aspartate Amino Transferase 33 Units/L (13-39); BUN/Creatinine Ratio 32 (6-26); Bilirubin,Direct 0.1 mg/dL (0.0-0.2); Bilirubin,Indirect 0.2 mg/dL (0.0-1.0); Bilirubin,Total 0.3 mg/dL (0.3-1.0); Blood Urea Nitrogen 25 mg/dL (8-23); Calcium 9.5 mg/dL (8.6-10.3); Carbon Dioxide 33 mEq/L (23-29); Chloride 97 mEq/L (98-107); Globulin 3.6 g/dL (2.4-3.5); Glucose 116 mg/dL (70-105); Osmolality,Calculated 293 (280-300); Potassium 6.2 mEq/L (3.5-5.1); Sodium 139 mEq/L (136-145); Total Protein 7.7 g/dL (6.4-8.9); Troponin I < 0.03 ng/mL (< 0.04); eGFR For African Americans > 60 (> 60); eGFR For Non-African Americans > 60 (> 60)
[2021-08-08] MEDS ORDERED: Ondansetron 4 MG/2 ML VIAL IVP ONE (03:26)
[2021-08-08] MEDS ORDERED: SODIUM ZIRCONIUM CYCLOSILICATE 5 GM POWD.PACK PO ONE (03:28)
[2021-08-08] MEDS ORDERED: Calcium Gluconate 1gm/50mL 1 GM/50 ML BAG IVPB ONE (03:29)
[2021-08-08] MEDS ORDERED: Furosemide 40 MG/4 ML VIAL IVP ONE (03:30)
[2021-08-08] MEDS ORDERED: Naloxone 0.4 MG/ML INJ IVP PRN (04:45)
[2021-08-08] MEDS ORDERED: Melatonin 3 MG TABLET PO PRN (04:45)
[2021-08-08 05:33] LABS: Bilirubin,Urine Negative (Negative); Blood,Urine Negative (Negative); Clarity,Urine Clear (Clear); Color,Urine Light-Yellow (Yellow); Glucose,Urine (UA) Normal (Normal); Ketones,Urine Negative (Negative); Leukocyte Esterase,Urine Negative (Negative); Nitrite,Urine Negative (Negative); PH,Urine 6.5 pH Units (5.0-8.0); Protein,Urine Negative (Neg-Trace); Urobilinogen,Urine Normal (Normal)
[2021-08-08 06:48] LABS: Adenovirus Not Detected (Not Detect); Bordetella Pertussis Not Detected (Not Detect); Chlamydophila pneumoniae Not Detected (Not Detect); Coronavirus 229E Not Detected (Not Detect); Coronavirus HKU1 Not Detected (Not Detect); Coronavirus NL63 Not Detected (Not Detect); Coronavirus OC43 Not Detected (Not Detect); Human Metapneumovirus Not Detected (Not Detect); Human Rhinovirus/Enterovirus Not Detected (Not Detect); Influenza A Subtype 2009 H1 Not Detected (Not Detect); Influenza B Not Detected (Not Detect); Mycoplasma pneumoniae Not Detected (Not Detect); Parainfluenza Virus 1 Not Detected (Not Detect); Parainfluenza Virus 2 Not Detected (Not Detect); Parainfluenza Virus 3 Not Detected (Not Detect); Parainfluenza Virus 4 Not Detected (Not Detect); Respiratory Syncytial Virus Not Detected (Not Detect); SARS-CoV-2 Not Detected (Not Detect)
[2021-08-08] MEDS ORDERED: Albuterol 2.5 MG/3 ML NEBULIZER IH PRN (07:40)
[2021-08-08] MEDS: Sucralfate 1 GM TABLET PO SCH ×3 (08:21→16:20)
[2021-08-08] MEDS: Gabapentin 300 MG CAPSULE PO SCH ×2 (08:21→19:34)
[2021-08-08] MEDS: Lisinopril-HCTZ 20-12.5mg TABLET PO SCH (08:21)
[2021-08-08] MEDS: Aspirin 81 MG TAB.CHEW PO SCH (08:21)
[2021-08-08] MEDS: *HR* Heparin 5,000 UNIT/ML VIAL SQ SCH ×2 (08:21→16:20)
[2021-08-08] MEDS: Multivit/Ca/Min/Fe/FA 1 TAB TABLET PO SCH (08:22)
[2021-08-08] MEDS: amLODIPine 5 MG TABLET PO SCH (08:23)
[2021-08-08] MEDS: MethylPREDNISolone 40 MG/ML VIAL IVP SCH ×2 (08:23→16:19)
[2021-08-08] MEDS: *HR* OxyCODONE/APAP 10/325 TABLET PO PRN ×3 (08:27→22:01)
[2021-08-08] MEDS ORDERED: lisinopriL 20 MG TABLET PO SCH (09:00)
[2021-08-08] MEDS ORDERED: Ipratropium/Albuterol Neb 3 ML IH SCH (10:00)
[2021-08-08] MEDS: Ipratropium/Albuterol Neb 3 ML IH SCH ×5 (11:04→23:04)
[2021-08-08] MEDS: Budesonide/Formoterol 160/4.5 1 PUFF INH IH SCH ×2 (11:05→19:47)
[2021-08-08] MEDS: traZODone 50 MG TABLET PO SCH (19:35)
[2021-08-09] MEDS: MethylPREDNISolone 40 MG/ML VIAL IVP SCH ×3 (01:27→16:11)
[2021-08-09] MEDS: *HR* OxyCODONE/APAP 10/325 TABLET PO PRN ×4 (04:00→22:17)
[2021-08-09] MEDS: *HR* Heparin 5,000 UNIT/ML VIAL SQ SCH ×2 (04:01→16:10)
[2021-08-09] MEDS: Ipratropium/Albuterol Neb 3 ML IH SCH ×6 (04:06→23:16)
[2021-08-09 05:55] LABS: Hematocrit 36.1 % (35.3-44.9); Hemoglobin 11.5 g/dL (11.5-15.4); Mean Corpuscular HGB Conc 31.9 g/dL (31.6-35.5); Mean Corpuscular Hemoglobin 29.4 pg (28.0-33.3); Mean Corpuscular Volume 92.3 fL (83.0-100.0); Mean Platelet Volume 9.2 fL (9.4-12.4); Platelet Count 343 K/mcL (140-400); Red Blood Count 3.91 M/mcL (3.82-4.97); White Blood Count 15.3 K/mcL (4.3-11.1)
[2021-08-09 06:01] LABS: BUN/Creatinine Ratio 41 (6-26); Blood Urea Nitrogen 28 mg/dL (8-23); Calcium 9.1 mg/dL (8.6-10.3); Carbon Dioxide 35 mEq/L (23-29); Chloride 96 mEq/L (98-107); Glucose 139 mg/dL (70-105); Osmolality,Calculated 296 (280-300); Potassium 3.7 mEq/L (3.5-5.1); Sodium 139 mEq/L (136-145); eGFR For African Americans > 60 (> 60); eGFR For Non-African Americans > 60 (> 60)
[2021-08-09] MEDS: Budesonide/Formoterol 160/4.5 1 PUFF INH IH SCH ×2 (07:28→19:34)
[2021-08-09] MEDS: amLODIPine 5 MG TABLET PO SCH (08:15)
[2021-08-09] MEDS: Lisinopril-HCTZ 20-12.5mg TABLET PO SCH (08:15)
[2021-08-09] MEDS: Multivit/Ca/Min/Fe/FA 1 TAB TABLET PO SCH (08:15)
[2021-08-09] MEDS: Sucralfate 1 GM TABLET PO SCH ×3 (08:15→16:10)
[2021-08-09] MEDS: Aspirin 81 MG TAB.CHEW PO SCH (08:15)
[2021-08-09] MEDS: Gabapentin 300 MG CAPSULE PO SCH ×2 (08:15→20:26)
[2021-08-09] MEDS: ALPRAZolam 0.5 MG TABLET PO PRN ×2 (10:12→18:26)
[2021-08-09] MEDS ORDERED: Lidocaine TOPICAL Soln 50 ML BOTTLE TP ONE (13:12)
[2021-08-09] MEDS: Nicotine 21 MG PATCH.TD24 TD SCH (17:07)
[2021-08-09] MEDS: traZODone 50 MG TABLET PO SCH (20:26)
[2021-08-10] MEDS: MethylPREDNISolone 40 MG/ML VIAL IVP SCH ×2 (02:20→08:52)
[2021-08-10] MEDS: Ipratropium/Albuterol Neb 3 ML IH SCH ×6 (03:30→23:34)
[2021-08-10] MEDS: *HR* Heparin 5,000 UNIT/ML VIAL SQ SCH ×2 (05:38→15:46)
[2021-08-10] MEDS: Sucralfate 1 GM TABLET PO SCH ×3 (05:39→15:46)
[2021-08-10] MEDS: *HR* OxyCODONE/APAP 10/325 TABLET PO PRN ×3 (05:41→21:24)
[2021-08-10] MEDS: ALPRAZolam 0.5 MG TABLET PO PRN ×2 (06:18→15:49)
[2021-08-10 06:43] LABS: Hematocrit 35.5 % (35.3-44.9); Hemoglobin 11.5 g/dL (11.5-15.4); Mean Corpuscular HGB Conc 32.4 g/dL (31.6-35.5); Mean Corpuscular Hemoglobin 29.9 pg (28.0-33.3); Mean Corpuscular Volume 92.4 fL (83.0-100.0); Platelet Count 354 K/mcL (140-400); Red Blood Count 3.84 M/mcL (3.82-4.97); Red Cell Distribution Width 14.8 % (11.5-14.5); White Blood Count 15.8 K/mcL (4.3-11.1)
[2021-08-10] MEDS: Budesonide/Formoterol 160/4.5 1 PUFF INH IH SCH ×2 (07:33→19:53)
[2021-08-10 07:35] LABS: BUN/Creatinine Ratio 34 (6-26); Blood Urea Nitrogen 23 mg/dL (8-23); Carbon Dioxide 37 mEq/L (23-29); Chloride 96 mEq/L (98-107); Glucose 135 mg/dL (70-105); Osmolality,Calculated 294 (280-300); Potassium 3.5 mEq/L (3.5-5.1); Sodium 139 mEq/L (136-145); eGFR For African Americans > 60 (> 60); eGFR For Non-African Americans > 60 (> 60)
[2021-08-10] MEDS: Lisinopril-HCTZ 20-12.5mg TABLET PO SCH (08:52)
[2021-08-10] MEDS: Aspirin 81 MG TAB.CHEW PO SCH (08:52)
[2021-08-10] MEDS: Gabapentin 300 MG CAPSULE PO SCH ×2 (08:52→21:24)
[2021-08-10] MEDS: Nicotine 21 MG PATCH.TD24 TD SCH (08:52)
[2021-08-10] MEDS: Multivit/Ca/Min/Fe/FA 1 TAB TABLET PO SCH (08:52)
[2021-08-10] MEDS: amLODIPine 5 MG TABLET PO SCH (08:52)
[2021-08-10] MEDS: hydrOXYzine pamoate 25 MG CAPSULE PO PRN ×2 (11:25→22:25)
[2021-08-10] MEDS: traZODone 50 MG TABLET PO SCH (21:24)
[2021-08-11] MEDS: Ipratropium/Albuterol Neb 3 ML IH SCH ×3 (03:57→11:06)
[2021-08-11] MEDS: *HR* Heparin 5,000 UNIT/ML VIAL SQ SCH (04:29)
[2021-08-11] MEDS: *HR* OxyCODONE/APAP 10/325 TABLET PO PRN ×2 (04:29→11:12)
[2021-08-11] MEDS: ALPRAZolam 0.5 MG TABLET PO PRN (04:29)
[2021-08-11 04:51] LABS: Hematocrit 36.9 % (35.3-44.9); Hemoglobin 11.6 g/dL (11.5-15.4); Mean Corpuscular HGB Conc 31.4 g/dL (31.6-35.5); Mean Corpuscular Hemoglobin 29.4 pg (28.0-33.3); Mean Corpuscular Volume 93.4 fL (83.0-100.0); Mean Platelet Volume 8.8 fL (9.4-12.4); Platelet Count 337 K/mcL (140-400); Red Blood Count 3.95 M/mcL (3.82-4.97); Red Cell Distribution Width 15.1 % (11.5-14.5); White Blood Count 17.7 K/mcL (4.3-11.1)
[2021-08-11] MEDS: Nystatin SUSP 5 ML UD.LIQ BC SCH ×3 (04:54→11:03)
[2021-08-11 05:15] LABS: BUN/Creatinine Ratio 36 (6-26); Blood Urea Nitrogen 26 mg/dL (8-23); Calcium 8.9 mg/dL (8.6-10.3); Carbon Dioxide 34 mEq/L (23-29); Chloride 97 mEq/L (98-107); Glucose 126 mg/dL (70-105); Osmolality,Calculated 296 (280-300); Potassium 2.9 mEq/L (3.5-5.1); Sodium 140 mEq/L (136-145); eGFR For African Americans > 60 (> 60); eGFR For Non-African Americans > 60 (> 60)
[2021-08-11] MEDS: Budesonide/Formoterol 160/4.5 1 PUFF INH IH SCH (07:35)
[2021-08-11] MEDS: Sucralfate 1 GM TABLET PO SCH ×2 (07:50→11:03)
[2021-08-11] MEDS: Nicotine 21 MG PATCH.TD24 TD SCH (07:50)
[2021-08-11] MEDS: amLODIPine 5 MG TABLET PO SCH (07:50)
[2021-08-11] MEDS: Aspirin 81 MG TAB.CHEW PO SCH (07:50)
[2021-08-11] MEDS: Multivit/Ca/Min/Fe/FA 1 TAB TABLET PO SCH (07:50)
[2021-08-11] MEDS: Lisinopril-HCTZ 20-12.5mg TABLET PO SCH (07:50)
[2021-08-11] MEDS: Gabapentin 300 MG CAPSULE PO SCH (07:50)
[2021-08-11] MEDS ORDERED: predniSONE 20 MG TABLET PO SCH (09:00)
[2021-08-11 10:54] VITALS: BP 154/87; PULSE 96; TEMP 98.6
[2021-08-11] MEDS: hydrOXYzine pamoate 25 MG CAPSULE PO PRN (11:12)
[2021-08-11 14:53] VITALS: O2SAT 92
== END 2021-08-11 13:53 | disposition home health service (06) | DRG 190 ==
LOC: EMEROOARM 01:51 → SUATTDRO 06:16 → 2ANU 06:16
PROVIDERS: ADMIT Internal Medicine; ATTEND Family Medicine

== ENCOUNTER 2021-08-23 17:53 | Inpatient (IN) ==
[2021-08-23] MEDS ORDERED: 0.9 % Sodium Chloride 1,000 ML IVC ONE (18:10)
[2021-08-23] MEDS ORDERED: Ipratropium/Albuterol Neb 3 ML IH ONE ×2 (18:10→19:20)
[2021-08-23] MEDS ORDERED: methylPREDNISolone 125 MG/2 ML VIAL IVP ONE (18:10)
[2021-08-23 18:23] LABS: ABG Base Excess 7 mEq/L (-2 to 3); ABG HCO3 38 mEq/L (21-27); ABG Oxygen Saturation 99 % (95-98); ABG PCO2 88 mmHg (35-45); ABG PH 7.24 pH Units (7.32-7.45); ABG PO2 154 mmHg (85-104); ABG TCO2 40 mEq/L (20-26)
[2021-08-23 19:11] LABS: Alanine Aminotransferase 19 Units/L (7-52); Albumin 4.2 g/dL (3.5-5.7); Albumin/Globulin Ratio 1.4 (1.1-2.2); Alkaline Phosphatase 54 Units/L (34-104); Aspartate Amino Transferase 18 Units/L (13-39); BUN/Creatinine Ratio 30 (6-26); Bilirubin,Indirect 0.2 mg/dL (0.0-1.0); Bilirubin,Total 0.2 mg/dL (0.3-1.0); Blood Urea Nitrogen 23 mg/dL (8-23); Calcium 9.2 mg/dL (8.6-10.3); Carbon Dioxide 36 mEq/L (23-29); Chloride 96 mEq/L (98-107); Globulin 2.9 g/dL (2.4-3.5); Glucose 118 mg/dL (70-105); Osmolality,Calculated 291 (280-300); Potassium 4.6 mEq/L (3.5-5.1); Sodium 138 mEq/L (136-145); Total Protein 7.1 g/dL (6.4-8.9); Troponin I < 0.03 ng/mL (< 0.04); eGFR For African Americans > 60 (> 60); eGFR For Non-African Americans > 60 (> 60)
[2021-08-23 19:32] LABS: Basophils % 0.1 %; Eosinophils # 0.1 K/mcL (0.0-0.6); Eosinophils % 0.4 %; Hematocrit 35.1 % (35.3-44.9); Hemoglobin 10.9 g/dL (11.5-15.4); Immature Granulocytes % 0.6 % (0-4); Lymphocytes # 3.1 K/mcL (0.6-4.6); Lymphocytes % 23.1 %; Mean Corpuscular HGB Conc 31.1 g/dL (31.6-35.5); Mean Corpuscular Hemoglobin 30.5 pg (28.0-33.3); Mean Corpuscular Volume 98.3 fL (83.0-100.0); Mean Platelet Volume 8.5 fL (9.4-12.4); Monocytes # 1.3 K/mcL (0.0-1.3); Monocytes % 9.9 %; Platelet Count 259 K/mcL (140-400); Red Blood Count 3.57 M/mcL (3.82-4.97); Red Cell Distribution Width 15.9 % (11.5-14.5); Segmented Neutrophils % 65.9 %; White Blood Count 13.6 K/mcL (4.3-11.1)
[2021-08-23] MEDS ORDERED: Naloxone 0.4 MG/ML INJ IVP PRN (20:11)
[2021-08-23 21:25] LABS: Adenovirus Not Detected (Not Detect); Coronavirus 229E Not Detected (Not Detect); Coronavirus HKU1 Not Detected (Not Detect); Coronavirus NL63 Not Detected (Not Detect); Coronavirus OC43 Not Detected (Not Detect); Human Metapneumovirus Not Detected (Not Detect); Human Rhinovirus/Enterovirus Not Detected (Not Detect); Influenza A Subtype 2009 H1 Not Detected (Not Detect); Influenza B Not Detected (Not Detect); Parainfluenza Virus 1 Not Detected (Not Detect); Parainfluenza Virus 2 Not Detected (Not Detect); Parainfluenza Virus 3 Not Detected (Not Detect); SARS-CoV-2 Not Detected (Not Detect)
[2021-08-23 21:26] LABS: Bordetella Pertussis Not Detected (Not Detect); Chlamydophila pneumoniae Not Detected (Not Detect); Mycoplasma pneumoniae Not Detected (Not Detect); Parainfluenza Virus 4 Not Detected (Not Detect); Respiratory Syncytial Virus Not Detected (Not Detect)
[2021-08-23] MEDS ORDERED: *HR* OxyCODONE/APAP 10/325 TABLET PO ONE (22:38)
[2021-08-23] MEDS: Furosemide 20 MG/2 ML VIAL IVP SCH (23:01)
[2021-08-24] MEDS: Ipratropium/Albuterol Neb 3 ML IH SCH ×5 (00:04→20:11)
[2021-08-24] MEDS: Budesonide/Formoterol 160/4.5 1 PUFF INH IH SCH ×3 (00:04→20:11)
[2021-08-24] MEDS: hydrOXYzine pamoate 25 MG CAPSULE PO PRN (05:34)
[2021-08-24] MEDS: *HR* Heparin 5,000 UNIT/ML VIAL SQ SCH ×2 (05:35→17:49)
[2021-08-24 07:08] LABS: Basophils % 0.1 %; Hemoglobin 10.4 g/dL (11.5-15.4); Immature Granulocytes % 0.6 % (0-4); Lymphocytes # 0.9 K/mcL (0.6-4.6); Lymphocytes % 9.3 %; Mean Corpuscular HGB Conc 32.5 g/dL (31.6-35.5); Mean Corpuscular Hemoglobin 31.2 pg (28.0-33.3); Mean Corpuscular Volume 96.1 fL (83.0-100.0); Mean Platelet Volume 8.7 fL (9.4-12.4); Monocytes # 0.3 K/mcL (0.0-1.3); Monocytes % 3.4 %; Neutrophils # 8.2 K/mcL (1.6-8.9); Platelet Count 260 K/mcL (140-400); Red Blood Count 3.33 M/mcL (3.82-4.97); Red Cell Distribution Width 15.7 % (11.5-14.5); Segmented Neutrophils % 86.6 %; White Blood Count 9.5 K/mcL (4.3-11.1)
[2021-08-24 07:28] LABS: BUN/Creatinine Ratio 36 (6-26); Blood Urea Nitrogen 20 mg/dL (8-23); Calcium 8.8 mg/dL (8.6-10.3); Carbon Dioxide 37 mEq/L (23-29); Chloride 97 mEq/L (98-107); Glucose 138 mg/dL (70-105); Osmolality,Calculated 295 (280-300); Potassium 4.3 mEq/L (3.5-5.1); Sodium 140 mEq/L (136-145); eGFR For African Americans > 60 (> 60); eGFR For Non-African Americans > 60 (> 60)
[2021-08-24] MEDS: MethylPREDNISolone 40 MG/ML VIAL IVP SCH ×2 (09:38→17:49)
[2021-08-24] MEDS: Furosemide 20 MG/2 ML VIAL IVP SCH ×2 (09:39→20:00)
[2021-08-24] MEDS: Multivit/Ca/Min/Fe/FA 1 TAB TABLET PO SCH (09:41)
[2021-08-24] MEDS: Gabapentin 300 MG CAPSULE PO SCH ×2 (09:41→19:52)
[2021-08-24] MEDS: Sucralfate 1 GM TABLET PO SCH ×3 (09:44→17:49)
[2021-08-24] MEDS: *HR* OxyCODONE/APAP 10/325 TABLET PO PRN ×2 (12:59→19:54)
[2021-08-24] MEDS: ALPRAZolam 0.5 MG TABLET PO PRN ×2 (12:59→19:53)
[2021-08-24] MEDS: traZODone 50 MG TABLET PO SCH (19:53)
[2021-08-25] MEDS: MethylPREDNISolone 40 MG/ML VIAL IVP SCH ×4 (00:25→23:53)
[2021-08-25 02:21] LABS: Basophils % 0.1 %; Hematocrit 33.3 % (35.3-44.9); Hemoglobin 10.9 g/dL (11.5-15.4); Immature Granulocytes % 0.9 % (0-4); Lymphocytes # 0.7 K/mcL (0.6-4.6); Lymphocytes % 7.2 %; Mean Corpuscular HGB Conc 32.7 g/dL (31.6-35.5); Mean Corpuscular Hemoglobin 30.9 pg (28.0-33.3); Mean Corpuscular Volume 94.3 fL (83.0-100.0); Mean Platelet Volume 8.6 fL (9.4-12.4); Monocytes # 0.3 K/mcL (0.0-1.3); Monocytes % 3.4 %; Neutrophils # 8.3 K/mcL (1.6-8.9); Nucleated Red Blood Cells 0.2 /100 WBC (0); Platelet Count 280 K/mcL (140-400); Red Blood Count 3.53 M/mcL (3.82-4.97); Red Cell Distribution Width 15.7 % (11.5-14.5); Segmented Neutrophils % 88.4 %; White Blood Count 9.4 K/mcL (4.3-11.1)
[2021-08-25 02:38] LABS: BUN/Creatinine Ratio 30 (6-26); Blood Urea Nitrogen 23 mg/dL (8-23); Calcium 8.9 mg/dL (8.6-10.3); Carbon Dioxide 37 mEq/L (23-29); Chloride 94 mEq/L (98-107); Glucose 219 mg/dL (70-105); Magnesium 1.8 mg/dL (1.6-2.6); Osmolality,Calculated 296 (280-300); Phosphorous 1.3 mg/dL (2.7-4.5); Potassium 3.9 mEq/L (3.5-5.1); Sodium 138 mEq/L (136-145); eGFR For African Americans > 60 (> 60); eGFR For Non-African Americans > 60 (> 60)
[2021-08-25] MEDS: *HR* OxyCODONE/APAP 10/325 TABLET PO PRN ×3 (03:02→20:32)
[2021-08-25] MEDS: ALPRAZolam 0.5 MG TABLET PO PRN (03:04)
[2021-08-25] MEDS: Ipratropium/Albuterol Neb 3 ML IH SCH ×4 (03:34→19:40)
[2021-08-25] MEDS: Nicotine 21 MG PATCH.TD24 TD SCH (03:50)
[2021-08-25] MEDS: *HR* Heparin 5,000 UNIT/ML VIAL SQ SCH ×2 (05:27→18:22)
[2021-08-25] MEDS: Budesonide/Formoterol 160/4.5 1 PUFF INH IH SCH ×2 (07:59→19:40)
[2021-08-25] MEDS: Furosemide 20 MG/2 ML VIAL IVP SCH ×2 (08:08→19:21)
[2021-08-25] MEDS: Sucralfate 1 GM TABLET PO SCH ×3 (08:08→16:42)
[2021-08-25] MEDS: Multivit/Ca/Min/Fe/FA 1 TAB TABLET PO SCH (08:08)
[2021-08-25] MEDS: Gabapentin 300 MG CAPSULE PO SCH ×2 (08:09→19:21)
[2021-08-25] MEDS ORDERED: Potassium Phosphate 44 MEQ in 0.9 % Sodium Chloride 250 ML IVPB ONE (08:35)
[2021-08-25] MEDS: ALPRAZolam 1 MG TABLET PO PRN ×2 (13:58→22:01)
[2021-08-25] MEDS: traZODone 50 MG TABLET PO SCH (19:21)
[2021-08-26] MEDS: *HR* OxyCODONE/APAP 10/325 TABLET PO PRN ×4 (02:32→23:07)
[2021-08-26] MEDS: Ipratropium/Albuterol Neb 3 ML IH SCH ×2 (03:35→07:59)
[2021-08-26] MEDS: Nicotine 21 MG PATCH.TD24 TD SCH (03:45)
[2021-08-26 04:07] LABS: Basophils % 0.3 %; Hematocrit 34.1 % (35.3-44.9); Hemoglobin 10.7 g/dL (11.5-15.4); Lymphocytes # 0.8 K/mcL (0.6-4.6); Mean Corpuscular HGB Conc 31.4 g/dL (31.6-35.5); Mean Corpuscular Hemoglobin 30.1 pg (28.0-33.3); Mean Corpuscular Volume 96.1 fL (83.0-100.0); Mean Platelet Volume 8.6 fL (9.4-12.4); Monocytes # 0.3 K/mcL (0.0-1.3); Monocytes % 2.2 %; Neutrophils # 10.4 K/mcL (1.6-8.9); Nucleated Red Blood Cells 0.3 /100 WBC (0); Platelet Count 283 K/mcL (140-400); Red Blood Count 3.55 M/mcL (3.82-4.97); Red Cell Distribution Width 15.6 % (11.5-14.5); Segmented Neutrophils % 88.5 %; White Blood Count 11.8 K/mcL (4.3-11.1)
[2021-08-26 04:26] LABS: BUN/Creatinine Ratio 38 (6-26); Blood Urea Nitrogen 30 mg/dL (8-23); Calcium 9.1 mg/dL (8.6-10.3); Carbon Dioxide 39 mEq/L (23-29); Chloride 94 mEq/L (98-107); Glucose 163 mg/dL (70-105); Magnesium 1.6 mg/dL (1.6-2.6); Osmolality,Calculated 298 (280-300); Phosphorous 2.6 mg/dL (2.7-4.5); Potassium 3.9 mEq/L (3.5-5.1); Sodium 139 mEq/L (136-145); eGFR For African Americans > 60 (> 60); eGFR For Non-African Americans > 60 (> 60)
[2021-08-26] MEDS: *HR* Heparin 5,000 UNIT/ML VIAL SQ SCH ×2 (05:59→18:04)
[2021-08-26] MEDS: Budesonide/Formoterol 160/4.5 1 PUFF INH IH SCH ×2 (08:00→20:10)
[2021-08-26] MEDS: Gabapentin 300 MG CAPSULE PO SCH ×2 (09:32→20:38)
[2021-08-26] MEDS: MethylPREDNISolone 40 MG/ML VIAL IVP SCH (09:32)
[2021-08-26] MEDS: Furosemide 20 MG/2 ML VIAL IVP SCH ×2 (09:32→20:38)
[2021-08-26] MEDS: Multivit/Ca/Min/Fe/FA 1 TAB TABLET PO SCH (09:33)
[2021-08-26] MEDS: Aspirin 81 MG TAB.CHEW PO SCH (09:33)
[2021-08-26] MEDS: Sucralfate 1 GM TABLET PO SCH ×3 (09:33→18:04)
[2021-08-26] MEDS: ALPRAZolam 1 MG TABLET PO PRN ×3 (09:41→23:07)
[2021-08-26] MEDS: predniSONE 20 MG TABLET PO SCH (12:06)
[2021-08-26] MEDS: hydrOXYzine pamoate 25 MG CAPSULE PO PRN (12:06)
[2021-08-26] MEDS: *HR* Metoprolol 5 MG/5 ML VIAL IVP PRN (16:50)
[2021-08-26] MEDS: Levalbuterol Neb 0.63 MG/3 ML IH SCH ×2 (16:50→20:09)
[2021-08-26] MEDS ORDERED: Levalbuterol Neb 0.63 MG/3 ML ONE (16:51)
[2021-08-26] MEDS: Morphine Sulfate 2 MG/ML SYRINGE IVP ONE ×2 (17:10→17:14)
[2021-08-26 17:24] LABS: ABG Base Excess 10 mEq/L (-2 to 3); ABG HCO3 37 mEq/L (21-27); ABG Oxygen Saturation 99 % (95-98); ABG PCO2 61 mmHg (35-45); ABG PH 7.39 pH Units (7.32-7.45); ABG PO2 127 mmHg (85-104); ABG TCO2 39 mEq/L (20-26); Blood Gas Modality NIV
[2021-08-26] MEDS ORDERED: Levalbuterol 1 PUFF INHALER IH SCH (18:00)
[2021-08-26] MEDS: traZODone 50 MG TABLET PO SCH (20:38)
[2021-08-27] MEDS: Nicotine 21 MG PATCH.TD24 TD SCH (03:31)
[2021-08-27] MEDS: Levalbuterol Neb 0.63 MG/3 ML IH SCH ×4 (03:59→20:02)
[2021-08-27] MEDS: *HR* Heparin 5,000 UNIT/ML VIAL SQ SCH ×2 (06:06→16:27)
[2021-08-27] MEDS: *HR* OxyCODONE/APAP 10/325 TABLET PO PRN ×3 (06:06→22:05)
[2021-08-27] MEDS: ALPRAZolam 1 MG TABLET PO PRN ×3 (06:06→21:50)
[2021-08-27 07:00] LABS: Hematocrit 37.4 % (35.3-44.9); Hemoglobin 11.9 g/dL (11.5-15.4); Mean Corpuscular HGB Conc 31.8 g/dL (31.6-35.5); Mean Corpuscular Hemoglobin 30.7 pg (28.0-33.3); Mean Corpuscular Volume 96.6 fL (83.0-100.0); Nucleated Red Blood Cells 0.2 /100 WBC (0); Platelet Count 306 K/mcL (140-400); Red Blood Count 3.87 M/mcL (3.82-4.97); Red Cell Distribution Width 15.4 % (11.5-14.5); White Blood Count 12.7 K/mcL (4.3-11.1)
[2021-08-27 07:22] LABS: BUN/Creatinine Ratio 45 (6-26); Blood Urea Nitrogen 34 mg/dL (8-23); Calcium 9.6 mg/dL (8.6-10.3); Carbon Dioxide 38 mEq/L (23-29); Chloride 94 mEq/L (98-107); Glucose 92 mg/dL (70-105); Magnesium 1.9 mg/dL (1.6-2.6); Osmolality,Calculated 301 (280-300); Phosphorous 2.8 mg/dL (2.7-4.5); Potassium 3.4 mEq/L (3.5-5.1); Sodium 142 mEq/L (136-145); eGFR For African Americans > 60 (> 60); eGFR For Non-African Americans > 60 (> 60)
[2021-08-27] MEDS ORDERED: Potassium Phosphate 44 MEQ in 0.9 % Sodium Chloride 250 ML IVPB ONE (07:43)
[2021-08-27 08:01] LABS: Lymphocytes # 0.8 K/mcL (0.6-4.6); Monocytes # 0.5 K/mcL (0.0-1.3); Neutrophils # 10.7 K/mcL (1.6-8.9)
[2021-08-27 08:02] LABS: Platelet Estimate Normal (Normal)
[2021-08-27] MEDS: Aspirin 81 MG TAB.CHEW PO SCH (09:19)
[2021-08-27] MEDS: Gabapentin 300 MG CAPSULE PO SCH ×2 (09:20→21:50)
[2021-08-27] MEDS: predniSONE 20 MG TABLET PO SCH (09:20)
[2021-08-27] MEDS: Furosemide 20 MG/2 ML VIAL IVP SCH ×2 (09:21→21:50)
[2021-08-27] MEDS: Sucralfate 1 GM TABLET PO SCH ×3 (09:21→16:27)
[2021-08-27] MEDS: Multivit/Ca/Min/Fe/FA 1 TAB TABLET PO SCH (09:21)
[2021-08-27] MEDS: Budesonide/Formoterol 160/4.5 1 PUFF INH IH SCH ×2 (10:17→20:02)
[2021-08-27] MEDS: amLODIPine 5 MG TABLET PO SCH (11:13)
[2021-08-27] MEDS: Azithromycin 250 MG TABLET PO SCH (11:13)
[2021-08-27] MEDS: hydrOXYzine pamoate 25 MG CAPSULE PO PRN ×2 (11:14→22:06)
[2021-08-27] MEDS: Lisinopril-HCTZ 20-12.5mg TABLET PO SCH (11:14)
[2021-08-27] MEDS: *HR* Metoprolol 5 MG/5 ML VIAL IVP PRN (14:46)
[2021-08-27] MEDS: traZODone 50 MG TABLET PO SCH (21:49)
[2021-08-27] MEDS: Melatonin 3 MG TABLET PO PRN (22:05)
[2021-08-28] MEDS: Nicotine 21 MG PATCH.TD24 TD SCH (03:01)
[2021-08-28 03:48] LABS: BUN/Creatinine Ratio 42 (6-26); Blood Urea Nitrogen 34 mg/dL (8-23); Calcium 9.3 mg/dL (8.6-10.3); Carbon Dioxide 42 mEq/L (23-29); Chloride 94 mEq/L (98-107); Glucose 128 mg/dL (70-105); Magnesium 1.6 mg/dL (1.6-2.6); Osmolality,Calculated 303 (280-300); Phosphorous 2.6 mg/dL (2.7-4.5); Sodium 142 mEq/L (136-145); eGFR For African Americans > 60 (> 60); eGFR For Non-African Americans > 60 (> 60)
[2021-08-28] MEDS: Levalbuterol Neb 0.63 MG/3 ML IH SCH ×4 (03:48→20:12)
[2021-08-28] MEDS: ALPRAZolam 1 MG TABLET PO PRN ×3 (04:12→22:48)
[2021-08-28] MEDS: *HR* OxyCODONE/APAP 10/325 TABLET PO PRN ×4 (04:12→22:48)
[2021-08-28] MEDS: *HR* Heparin 5,000 UNIT/ML VIAL SQ SCH ×2 (06:42→16:55)
[2021-08-28] MEDS: Budesonide/Formoterol 160/4.5 1 PUFF INH IH SCH ×2 (07:42→20:12)
[2021-08-28] MEDS: amLODIPine 5 MG TABLET PO SCH (08:01)
[2021-08-28] MEDS: Aspirin 81 MG TAB.CHEW PO SCH (08:01)
[2021-08-28] MEDS: Sucralfate 1 GM TABLET PO SCH ×3 (08:01→16:55)
[2021-08-28] MEDS: predniSONE 20 MG TABLET PO SCH (08:01)
[2021-08-28] MEDS: Gabapentin 300 MG CAPSULE PO SCH ×2 (08:01→19:48)
[2021-08-28] MEDS: Azithromycin 250 MG TABLET PO SCH (08:02)
[2021-08-28] MEDS: Multivit/Ca/Min/Fe/FA 1 TAB TABLET PO SCH (08:02)
[2021-08-28] MEDS: Lisinopril-HCTZ 20-12.5mg TABLET PO SCH (08:02)
[2021-08-28] MEDS: Furosemide 20 MG/2 ML VIAL IVP SCH ×2 (09:33→19:48)
[2021-08-28] MEDS: traZODone 50 MG TABLET PO SCH (19:47)
[2021-08-29] MEDS: Levalbuterol Neb 0.63 MG/3 ML IH SCH ×4 (04:40→21:53)
[2021-08-29 04:45] LABS: BUN/Creatinine Ratio 51 (6-26); Blood Urea Nitrogen 40 mg/dL (8-23); Calcium 8.8 mg/dL (8.6-10.3); Carbon Dioxide 43 mEq/L (23-29); Chloride 95 mEq/L (98-107); Glucose 93 mg/dL (70-105); Magnesium 1.7 mg/dL (1.6-2.6); Osmolality,Calculated 301 (280-300); Phosphorous 2.7 mg/dL (2.7-4.5); Potassium 3.9 mEq/L (3.5-5.1); Sodium 141 mEq/L (136-145); eGFR For African Americans > 60 (> 60); eGFR For Non-African Americans > 60 (> 60)
[2021-08-29] MEDS: *HR* Heparin 5,000 UNIT/ML VIAL SQ SCH ×2 (06:13→17:25)
[2021-08-29] MEDS: Nicotine 21 MG PATCH.TD24 TD SCH (06:13)
[2021-08-29] MEDS: *HR* OxyCODONE/APAP 10/325 TABLET PO PRN ×3 (06:13→20:00)
[2021-08-29] MEDS: Sucralfate 1 GM TABLET PO SCH ×3 (08:15→17:25)
[2021-08-29] MEDS: Lisinopril-HCTZ 20-12.5mg TABLET PO SCH (08:15)
[2021-08-29] MEDS: amLODIPine 5 MG TABLET PO SCH (08:15)
[2021-08-29] MEDS: Azithromycin 250 MG TABLET PO SCH (08:15)
[2021-08-29] MEDS: Aspirin 81 MG TAB.CHEW PO SCH (08:15)
[2021-08-29] MEDS: Furosemide 20 MG/2 ML VIAL IVP SCH ×2 (08:16→20:01)
[2021-08-29] MEDS: predniSONE 20 MG TABLET PO SCH (08:16)
[2021-08-29] MEDS: Gabapentin 300 MG CAPSULE PO SCH ×2 (08:16→20:00)
[2021-08-29] MEDS: Multivit/Ca/Min/Fe/FA 1 TAB TABLET PO SCH (08:16)
[2021-08-29] MEDS: Budesonide/Formoterol 160/4.5 1 PUFF INH IH SCH ×2 (10:34→21:53)
[2021-08-29] MEDS: ALPRAZolam 1 MG TABLET PO PRN (17:26)
[2021-08-29] MEDS: Melatonin 3 MG TABLET PO PRN (20:01)
[2021-08-29] MEDS: hydrOXYzine pamoate 25 MG CAPSULE PO PRN (20:01)
[2021-08-29] MEDS: traZODone 50 MG TABLET PO SCH (20:01)
[2021-08-30] MEDS: ALPRAZolam 1 MG TABLET PO PRN ×3 (03:52→16:05)
[2021-08-30] MEDS: *HR* Heparin 5,000 UNIT/ML VIAL SQ SCH (03:52)
[2021-08-30] MEDS: *HR* OxyCODONE/APAP 10/325 TABLET PO PRN ×2 (03:52→13:13)
[2021-08-30] MEDS: Nicotine 21 MG PATCH.TD24 TD SCH (03:52)
[2021-08-30] MEDS: Levalbuterol Neb 0.63 MG/3 ML IH SCH ×3 (04:01→15:31)
[2021-08-30 05:42] LABS: Hematocrit 36.9 % (35.3-44.9); Hemoglobin 11.9 g/dL (11.5-15.4); Mean Corpuscular HGB Conc 32.2 g/dL (31.6-35.5); Mean Corpuscular Hemoglobin 30.8 pg (28.0-33.3); Mean Corpuscular Volume 95.6 fL (83.0-100.0); Mean Platelet Volume 8.6 fL (9.4-12.4); Platelet Count 294 K/mcL (140-400); Red Blood Count 3.86 M/mcL (3.82-4.97); Red Cell Distribution Width 15.7 % (11.5-14.5); White Blood Count 13.5 K/mcL (4.3-11.1)
[2021-08-30 06:11] LABS: BUN/Creatinine Ratio 57 (6-26); Blood Urea Nitrogen 45 mg/dL (8-23); Calcium 9.1 mg/dL (8.6-10.3); Carbon Dioxide 36 mEq/L (23-29); Chloride 94 mEq/L (98-107); Glucose 110 mg/dL (70-105); Magnesium 1.7 mg/dL (1.6-2.6); Osmolality,Calculated 300 (280-300); Potassium 3.9 mEq/L (3.5-5.1); Sodium 139 mEq/L (136-145); eGFR For African Americans > 60 (> 60); eGFR For Non-African Americans > 60 (> 60)
[2021-08-30] MEDS: Sucralfate 1 GM TABLET PO SCH ×2 (08:10→13:13)
[2021-08-30] MEDS: Azithromycin 250 MG TABLET PO SCH (08:10)
[2021-08-30] MEDS: amLODIPine 5 MG TABLET PO SCH (08:10)
[2021-08-30] MEDS: Gabapentin 300 MG CAPSULE PO SCH (08:11)
[2021-08-30] MEDS: Furosemide 20 MG/2 ML VIAL IVP SCH (08:11)
[2021-08-30] MEDS: Lisinopril-HCTZ 20-12.5mg TABLET PO SCH (08:11)
[2021-08-30] MEDS: predniSONE 20 MG TABLET PO SCH (08:11)
[2021-08-30] MEDS: Multivit/Ca/Min/Fe/FA 1 TAB TABLET PO SCH (08:11)
[2021-08-30] MEDS: Aspirin 81 MG TAB.CHEW PO SCH (08:11)
[2021-08-30] MEDS: hydrOXYzine pamoate 25 MG CAPSULE PO PRN (08:13)
[2021-08-30] MEDS: Budesonide/Formoterol 160/4.5 1 PUFF INH IH SCH (10:57)
[2021-08-30 15:39] VITALS: BP 130/89; PULSE 115; TEMP 97.7; O2SAT 100
== END 2021-08-30 16:15 | disposition other institution (70) | DRG 190 ==
LOC: 3NENU 17:53 → EMEROOARM 17:53 → 3NENU 22:10 → SUATTDRO 08-24 12:04
PROVIDERS: ADMIT Student in an Organized Health Care Education/Training Program; ATTEND Internal Medicine

== ENCOUNTER 2021-09-03 23:49 | Inpatient (IN) ==
[2021-09-04 00:07] LABS: ABG Base Excess 9 mEq/L (-2 to 3); ABG HCO3 37 mEq/L (21-27); ABG Oxygen Saturation 94 % (95-98); ABG PCO2 65 mmHg (35-45); ABG PH 7.36 pH Units (7.32-7.45); ABG PO2 76 mmHg (85-104); ABG TCO2 39 mEq/L (20-26)
[2021-09-04 00:18] LABS: Basophils % 0.2 %; Eosinophils # 0.1 K/mcL (0.0-0.6); Eosinophils % 0.3 %; Hematocrit 40.8 % (35.3-44.9); Hemoglobin 12.5 g/dL (11.5-15.4); Immature Granulocytes % 1.6 % (0-4); Lymphocytes # 3.1 K/mcL (0.6-4.6); Lymphocytes % 15.1 %; Mean Corpuscular HGB Conc 30.6 g/dL (31.6-35.5); Mean Corpuscular Hemoglobin 29.8 pg (28.0-33.3); Mean Corpuscular Volume 97.4 fL (83.0-100.0); Mean Platelet Volume 8.6 fL (9.4-12.4); Monocytes % 4.6 %; Neutrophils # 16.1 K/mcL (1.6-8.9); Platelet Count 269 K/mcL (140-400); Red Blood Count 4.19 M/mcL (3.82-4.97); Red Cell Distribution Width 15.5 % (11.5-14.5); Segmented Neutrophils % 78.2 %; White Blood Count 20.6 K/mcL (4.3-11.1)
[2021-09-04 00:56] LABS: BUN/Creatinine Ratio 39 (6-26); Blood Urea Nitrogen 47 mg/dL (8-23); Calcium 9.2 mg/dL (8.6-10.3); Carbon Dioxide 37 mEq/L (23-29); Chloride 95 mEq/L (98-107); Glucose 106 mg/dL (70-105); Osmolality,Calculated 301 (280-300); Potassium 4.4 mEq/L (3.5-5.1); Sodium 139 mEq/L (136-145); Troponin I < 0.03 ng/mL (< 0.04); eGFR For African Americans 56 (> 60); eGFR For Non-African Americans 46 (> 60)
[2021-09-04] MEDS ORDERED: Isovue-370 500 ML BOTTLE IVP ONE (01:59)
[2021-09-04] MEDS ORDERED: methylPREDNISolone 125 MG/2 ML VIAL IVP ONE (02:11)
[2021-09-04] MEDS ORDERED: Ipratropium/Albuterol Neb 3 ML IH ONE (02:11)
[2021-09-04] MEDS ORDERED: Piperacillin/Tazobactam 3.375 GM in 0.9 % Sodium Chloride Mini Bag 100 ML IVPB ONE (02:28)
[2021-09-04] MEDS ORDERED: Vancomycin 1,750 MG/517.5 ML IV.SOLN IVPB ONE (02:29)
[2021-09-04] MEDS ORDERED: *HR* Heparin 5,000 UNIT/ML VIAL IVP PRN ×2 (03:32)
[2021-09-04] MEDS ORDERED: *HR* Heparin 5,000 UNIT/ML VIAL IVP ONE (03:32)
[2021-09-04] MEDS ORDERED: Heparin 25,000UNIT/250ML 1/2NS 25,000 UNIT/250 ML IV.SOLN IVC SCH ×2 (03:45→15:35)
[2021-09-04 04:34] LABS: Hematocrit 36.1 % (35.3-44.9); Hemoglobin 11.2 g/dL (11.5-15.4); Mean Corpuscular Hemoglobin 29.9 pg (28.0-33.3); Mean Corpuscular Volume 96.3 fL (83.0-100.0); Mean Platelet Volume 8.9 fL (9.4-12.4); Platelet Count 227 K/mcL (140-400); Red Blood Count 3.75 M/mcL (3.82-4.97); Red Cell Distribution Width 15.7 % (11.5-14.5); White Blood Count 19.2 K/mcL (4.3-11.1)
[2021-09-04 04:42] LABS: Heparin anti-factor XA UFH 0.04 IU/mL (0.30-0.70); Prothrombin Time 11.1 Seconds (9.4-12.1)
[2021-09-04] MEDS ORDERED: 0.9 % Sodium Chloride 250 ML ONE (05:01)
[2021-09-04] MEDS ORDERED: Naloxone 0.4 MG/ML INJ IVP PRN (05:07)
[2021-09-04] MEDS ORDERED: Melatonin 3 MG TABLET PO PRN (05:07)
[2021-09-04 05:11] LABS: Influenza A PCR Negative (Negative); Influenza B PCR Negative (Negative); Resp. Syncytial Virus PCR Negative (Negative)
[2021-09-04 05:16] LABS: SARS-CoV-2 by PCR (In House) Negative (Negative)
[2021-09-04] MEDS: Azithromycin 500 MG in 0.9 % Sodium Chloride 250 ML IVPB ONE ×2 (05:20→06:20)
[2021-09-04] MEDS ORDERED: *HR* OxyCODONE Immed Rel 5 MG TABLET PO PRN (08:00)
[2021-09-04] MEDS ORDERED: Nicotine 14 MG PATCH.TD24 TD SCH (09:00)
[2021-09-04] MEDS: Piperacillin/Tazobactam 3.375 GM in 0.9 % Sodium Chloride Mini Bag 100 ML IVPB SCH ×2 (09:29→18:34)
[2021-09-04] MEDS ORDERED: 0.9 % Sodium Chloride 1,000 ML IVC SCH (10:45)
[2021-09-04] MEDS: Budesonide/Formoterol 160/4.5 1 PUFF INH IH SCH ×2 (11:07→20:33)
[2021-09-04] MEDS: Ipratropium/Albuterol Neb 3 ML IH SCH ×3 (11:07→20:33)
[2021-09-04] MEDS: amLODIPine 5 MG TABLET PO SCH (11:36)
[2021-09-04] MEDS: Gabapentin 300 MG CAPSULE PO SCH ×2 (11:36→21:27)
[2021-09-04] MEDS ORDERED: *HR* OxyCODONE/APAP 10/325 TABLET PO PRN (13:08)
[2021-09-04] MEDS: ALPRAZolam 1 MG TABLET PO PRN (14:11)
[2021-09-04] MEDS: *HR* OxyCODONE/APAP 10/325 TABLET PO PRN (14:11)
[2021-09-04] MEDS: Nicotine 21 MG PATCH.TD24 TD SCH (14:11)
[2021-09-04] MEDS: Sucralfate 1 GM TABLET PO SCH (17:18)
[2021-09-04] MEDS ORDERED: Warfarin perPT PO PRN ×2 (18:00)
[2021-09-04] MEDS ORDERED: *HR* Warfarin 5 MG TABLET PO ONE (18:00)
[2021-09-04] MEDS: *HR* Enoxaparin 80 MG/0.8 ML SYRINGE SQ SCH (18:35)
[2021-09-04] MEDS: traZODone 50 MG TABLET PO SCH (21:28)
[2021-09-05] MEDS ORDERED: Vancomycin 1,500 MG/265 ML IV.SOLN IVPB SCH (03:00)
[2021-09-05] MEDS: Piperacillin/Tazobactam 3.375 GM in 0.9 % Sodium Chloride Mini Bag 100 ML IVPB SCH ×3 (03:35→17:35)
[2021-09-05] MEDS: Ipratropium/Albuterol Neb 3 ML IH SCH ×4 (03:45→21:27)
[2021-09-05] MEDS: *HR* OxyCODONE/APAP 10/325 TABLET PO PRN ×3 (05:12→17:39)
[2021-09-05] MEDS: *HR* Enoxaparin 80 MG/0.8 ML SYRINGE SQ SCH ×2 (05:12→17:35)
[2021-09-05] MEDS: ALPRAZolam 1 MG TABLET PO PRN (05:17)
[2021-09-05] MEDS: Aspirin 81 MG TAB.CHEW PO SCH (08:07)
[2021-09-05] MEDS: MethylPREDNISolone 40 MG/ML VIAL IVP SCH ×2 (08:08→21:00)
[2021-09-05] MEDS: Sucralfate 1 GM TABLET PO SCH ×3 (08:08→17:36)
[2021-09-05] MEDS: amLODIPine 5 MG TABLET PO SCH (08:08)
[2021-09-05] MEDS: Gabapentin 300 MG CAPSULE PO SCH ×2 (08:08→20:50)
[2021-09-05] MEDS ORDERED: NON-FORMULARY MEDICATION 1 EACH EACH (Fluticasone/Umeclidin/Vilanter [Trelegy Ellipta 100- IH SCH (09:00)
[2021-09-05] MEDS: Tiotropium 10 INH DOSE IH SCH (09:48)
[2021-09-05] MEDS: Budesonide/Formoterol 160/4.5 1 PUFF INH IH SCH ×2 (09:48→21:27)
[2021-09-05 10:50] LABS: Hematocrit 34.9 % (35.3-44.9); Hemoglobin 10.7 g/dL (11.5-15.4); Mean Corpuscular HGB Conc 30.7 g/dL (31.6-35.5); Mean Corpuscular Hemoglobin 30.1 pg (28.0-33.3); Mean Platelet Volume 9.1 fL (9.4-12.4); Platelet Count 261 K/mcL (140-400); Red Blood Count 3.56 M/mcL (3.82-4.97); Red Cell Distribution Width 15.8 % (11.5-14.5); White Blood Count 16.7 K/mcL (4.3-11.1)
[2021-09-05 10:52] LABS: INR 1.1; Prothrombin Time 12.1 Seconds (9.4-12.1)
[2021-09-05 11:37] LABS: BUN/Creatinine Ratio 36 (6-26); Blood Urea Nitrogen 28 mg/dL (8-23); Calcium 8.7 mg/dL (8.6-10.3); Carbon Dioxide 32 mEq/L (23-29); Chloride 104 mEq/L (98-107); Glucose 127 mg/dL (70-105); Osmolality,Calculated 301 (280-300); Potassium 4.4 mEq/L (3.5-5.1); Sodium 142 mEq/L (136-145); eGFR For African Americans > 60 (> 60); eGFR For Non-African Americans > 60 (> 60)
[2021-09-05] MEDS: Nicotine 21 MG PATCH.TD24 TD SCH (15:10)
[2021-09-05] MEDS ORDERED: *HR* Warfarin 5 MG TABLET PO ONE (18:00)
[2021-09-05] MEDS: traZODone 50 MG TABLET PO SCH (20:50)
[2021-09-06] MEDS: *HR* OxyCODONE/APAP 10/325 TABLET PO PRN ×4 (00:07→20:09)
[2021-09-06] MEDS ORDERED: MethylPREDNISolone 40 MG/ML VIAL IM ONE (01:23)
[2021-09-06] MEDS: Ipratropium/Albuterol Neb 3 ML IH SCH ×2 (03:30→08:46)
[2021-09-06] MEDS: Piperacillin/Tazobactam 3.375 GM in 0.9 % Sodium Chloride Mini Bag 100 ML IVPB SCH ×3 (03:41→17:37)
[2021-09-06] MEDS: ALPRAZolam 1 MG TABLET PO PRN ×2 (03:54→17:37)
[2021-09-06] MEDS: *HR* Enoxaparin 80 MG/0.8 ML SYRINGE SQ SCH (05:38)
[2021-09-06] MEDS ORDERED: predniSONE 20 MG TABLET PO SCH (08:00)
[2021-09-06] MEDS ORDERED: Racepinephrine Neb 0.5 ML VIAL IH ONE ×2 (08:27→14:00)
[2021-09-06] MEDS ORDERED: MethylPREDNISolone 40 MG/ML VIAL ONE (08:50)
[2021-09-06] MEDS: Aspirin 81 MG TAB.CHEW PO SCH (08:57)
[2021-09-06] MEDS: amLODIPine 5 MG TABLET PO SCH (08:57)
[2021-09-06] MEDS: Sucralfate 1 GM TABLET PO SCH ×3 (08:57→17:38)
[2021-09-06] MEDS: Gabapentin 300 MG CAPSULE PO SCH ×2 (08:57→20:12)
[2021-09-06] MEDS: methylPREDNISolone 125 MG/2 ML VIAL IVP SCH ×4 (08:59→20:38)
[2021-09-06] MEDS ORDERED: methylPREDNISolone 125 MG/2 ML VIAL IM SCH (09:00)
[2021-09-06] MEDS ORDERED: Isovue-370 500 ML BOTTLE IVP ONE (09:08)
[2021-09-06] MEDS: Budesonide/Formoterol 160/4.5 1 PUFF INH IH SCH ×2 (09:42→20:52)
[2021-09-06] MEDS: Tiotropium 10 INH DOSE IH SCH (09:43)
[2021-09-06 10:43] LABS: Hematocrit 32.3 % (35.3-44.9); Hemoglobin 9.9 g/dL (11.5-15.4); Mean Corpuscular HGB Conc 30.7 g/dL (31.6-35.5); Mean Corpuscular Hemoglobin 30.2 pg (28.0-33.3); Mean Corpuscular Volume 98.5 fL (83.0-100.0); Mean Platelet Volume 8.9 fL (9.4-12.4); Platelet Count 268 K/mcL (140-400); Red Blood Count 3.28 M/mcL (3.82-4.97); Red Cell Distribution Width 15.4 % (11.5-14.5); White Blood Count 13.6 K/mcL (4.3-11.1)
[2021-09-06 10:53] LABS: Prothrombin Time 22.4 Seconds (9.4-12.1)
[2021-09-06 10:57] LABS: BUN/Creatinine Ratio 30 (6-26); Blood Urea Nitrogen 20 mg/dL (8-23); Calcium 8.8 mg/dL (8.6-10.3); Carbon Dioxide 33 mEq/L (23-29); Chloride 100 mEq/L (98-107); Glucose 146 mg/dL (70-105); Osmolality,Calculated 293 (280-300); Potassium 4.5 mEq/L (3.5-5.1); Sodium 139 mEq/L (136-145); eGFR For African Americans > 60 (> 60); eGFR For Non-African Americans > 60 (> 60)
[2021-09-06] MEDS: Nicotine 21 MG PATCH.TD24 TD SCH (12:20)
[2021-09-06] MEDS ORDERED: Levalbuterol Neb 0.63 MG/3 ML IH SCH (16:00)
[2021-09-06] MEDS ORDERED: *HR* Warfarin 2 MG TABLET PO ONE (18:00)
[2021-09-06] MEDS: traZODone 50 MG TABLET PO SCH (20:12)
[2021-09-06] MEDS ORDERED: tiZANidine 4 MG TABLET PO ONE (20:37)
[2021-09-06] MEDS ORDERED: *HR* OxyCODONE/APAP 5/325 TABLET PO ONE (20:39)
[2021-09-06] MEDS: Levalbuterol Neb 1.25 MG/3 ML IH SCH (20:52)
[2021-09-07] MEDS: Levalbuterol Neb 1.25 MG/3 ML IH SCH ×6 (00:14→20:27)
[2021-09-07] MEDS: Piperacillin/Tazobactam 3.375 GM in 0.9 % Sodium Chloride Mini Bag 100 ML IVPB SCH ×3 (01:29→16:49)
[2021-09-07] MEDS: *HR* OxyCODONE/APAP 10/325 TABLET PO PRN ×5 (02:26→21:00)
[2021-09-07] MEDS: methylPREDNISolone 125 MG/2 ML VIAL IVP SCH ×4 (04:23→21:07)
[2021-09-07] MEDS: Budesonide/Formoterol 160/4.5 1 PUFF INH IH SCH ×2 (07:28→20:27)
[2021-09-07] MEDS: Tiotropium 10 INH DOSE IH SCH (07:28)
[2021-09-07] MEDS: Sucralfate 1 GM TABLET PO SCH ×3 (08:39→16:47)
[2021-09-07] MEDS: Aspirin 81 MG TAB.CHEW PO SCH (08:39)
[2021-09-07] MEDS: amLODIPine 5 MG TABLET PO SCH (08:39)
[2021-09-07] MEDS: Gabapentin 300 MG CAPSULE PO SCH ×2 (08:39→20:10)
[2021-09-07 12:25] LABS: Hematocrit 30.3 % (35.3-44.9); Hemoglobin 9.9 g/dL (11.5-15.4); Mean Corpuscular HGB Conc 32.7 g/dL (31.6-35.5); Mean Corpuscular Hemoglobin 30.9 pg (28.0-33.3); Mean Corpuscular Volume 94.7 fL (83.0-100.0); Mean Platelet Volume 8.9 fL (9.4-12.4); Platelet Count 295 K/mcL (140-400); Red Cell Distribution Width 14.8 % (11.5-14.5); White Blood Count 16.7 K/mcL (4.3-11.1)
[2021-09-07 12:34] LABS: BUN/Creatinine Ratio 31 (6-26); Blood Urea Nitrogen 18 mg/dL (8-23); Calcium 8.9 mg/dL (8.6-10.3); Carbon Dioxide 37 mEq/L (23-29); Chloride 99 mEq/L (98-107); Glucose 107 mg/dL (70-105); Osmolality,Calculated 290 (280-300); Potassium 4.1 mEq/L (3.5-5.1); Sodium 139 mEq/L (136-145); eGFR For African Americans > 60 (> 60); eGFR For Non-African Americans > 60 (> 60)
[2021-09-07 12:36] LABS: INR 2.7; Prothrombin Time 30.2 Seconds (9.4-12.1)
[2021-09-07] MEDS: Nicotine 21 MG PATCH.TD24 TD SCH (12:52)
[2021-09-07] MEDS ORDERED: amLODIPine 5 MG TABLET PO ONE (13:05)
[2021-09-07] MEDS: ALPRAZolam 1 MG TABLET PO PRN (16:48)
[2021-09-07] MEDS: traZODone 50 MG TABLET PO SCH (20:10)
[2021-09-08] MEDS: Levalbuterol Neb 1.25 MG/3 ML IH SCH ×6 (00:11→20:46)
[2021-09-08] MEDS: Piperacillin/Tazobactam 3.375 GM in 0.9 % Sodium Chloride Mini Bag 100 ML IVPB SCH ×3 (01:24→17:04)
[2021-09-08] MEDS: *HR* OxyCODONE/APAP 10/325 TABLET PO PRN ×5 (03:02→21:31)
[2021-09-08] MEDS: ALPRAZolam 1 MG TABLET PO PRN ×3 (03:02→19:44)
[2021-09-08] MEDS: methylPREDNISolone 125 MG/2 ML VIAL IVP SCH (05:00)
[2021-09-08 05:50] LABS: BUN/Creatinine Ratio 26 (6-26); Blood Urea Nitrogen 16 mg/dL (8-23); Calcium 8.6 mg/dL (8.6-10.3); Carbon Dioxide 36 mEq/L (23-29); Chloride 99 mEq/L (98-107); Glucose 189 mg/dL (70-105); Magnesium 1.6 mg/dL (1.6-2.6); Osmolality,Calculated 292 (280-300); Phosphorous 2.9 mg/dL (2.7-4.5); Potassium 3.6 mEq/L (3.5-5.1); Sodium 138 mEq/L (136-145); eGFR For African Americans > 60 (> 60); eGFR For Non-African Americans > 60 (> 60)
[2021-09-08 05:51] LABS: Hematocrit 28.6 % (35.3-44.9); Hemoglobin 9.3 g/dL (11.5-15.4); Mean Corpuscular HGB Conc 32.5 g/dL (31.6-35.5); Mean Corpuscular Hemoglobin 30.7 pg (28.0-33.3); Mean Corpuscular Volume 94.4 fL (83.0-100.0); Mean Platelet Volume 8.9 fL (9.4-12.4); Nucleated Red Blood Cells 0.3 /100 WBC (0); Platelet Count 300 K/mcL (140-400); Red Blood Count 3.03 M/mcL (3.82-4.97); Red Cell Distribution Width 14.9 % (11.5-14.5); White Blood Count 14.8 K/mcL (4.3-11.1)
[2021-09-08 06:19] LABS: Lymphocytes # 1.2 K/mcL (0.6-4.6); Monocytes # 1.2 K/mcL (0.0-1.3); Neutrophils # 12.4 K/mcL (1.6-8.9); Platelet Estimate Normal (Normal); Toxic Granulation Present (Not Present)
[2021-09-08] MEDS: Budesonide/Formoterol 160/4.5 1 PUFF INH IH SCH ×2 (08:10→20:46)
[2021-09-08] MEDS: Tiotropium 10 INH DOSE IH SCH (08:10)
[2021-09-08] MEDS: Aspirin 81 MG TAB.CHEW PO SCH (08:11)
[2021-09-08] MEDS: Gabapentin 300 MG CAPSULE PO SCH ×2 (08:11→19:44)
[2021-09-08] MEDS: Sucralfate 1 GM TABLET PO SCH ×3 (08:11→17:04)
[2021-09-08] MEDS: amLODIPine 5 MG TABLET PO SCH (08:11)
[2021-09-08] MEDS ORDERED: Fluconazole 150 MG TABLET PO ONE (10:57)
[2021-09-08] MEDS: Acetylcysteine 10% 2 ML INHSOL IH SCH ×3 (11:26→20:46)
[2021-09-08] MEDS: Nicotine 21 MG PATCH.TD24 TD SCH (13:25)
[2021-09-08] MEDS: predniSONE 20 MG TABLET PO SCH (17:04)
[2021-09-08] MEDS ORDERED: *HR* Warfarin 2.5 MG TABLET PO ONE (18:00)
[2021-09-08] MEDS: traZODone 50 MG TABLET PO SCH (19:44)
[2021-09-09] MEDS: Levalbuterol Neb 1.25 MG/3 ML IH SCH ×7 (00:23→23:48)
[2021-09-09] MEDS: Piperacillin/Tazobactam 3.375 GM in 0.9 % Sodium Chloride Mini Bag 100 ML IVPB SCH ×3 (02:15→17:31)
[2021-09-09 04:05] LABS: Hemoglobin 9.9 g/dL (11.5-15.4); Mean Corpuscular HGB Conc 31.9 g/dL (31.6-35.5); Mean Corpuscular Hemoglobin 30.8 pg (28.0-33.3); Mean Corpuscular Volume 96.6 fL (83.0-100.0); Mean Platelet Volume 8.8 fL (9.4-12.4); Nucleated Red Blood Cells 0.7 /100 WBC (0); Platelet Count 329 K/mcL (140-400); Red Blood Count 3.21 M/mcL (3.82-4.97); Red Cell Distribution Width 15.4 % (11.5-14.5); White Blood Count 17.7 K/mcL (4.3-11.1)
[2021-09-09 04:19] LABS: INR 1.6; Prothrombin Time 17.7 Seconds (9.4-12.1)
[2021-09-09 04:23] LABS: BUN/Creatinine Ratio 43 (6-26); Blood Urea Nitrogen 30 mg/dL (8-23); Calcium 8.7 mg/dL (8.6-10.3); Carbon Dioxide 35 mEq/L (23-29); Chloride 103 mEq/L (98-107); Glucose 128 mg/dL (70-105); Magnesium 1.8 mg/dL (1.6-2.6); Osmolality,Calculated 302 (280-300); Phosphorous 2.8 mg/dL (2.7-4.5); Potassium 4.1 mEq/L (3.5-5.1); Sodium 142 mEq/L (136-145); eGFR For African Americans > 60 (> 60); eGFR For Non-African Americans > 60 (> 60)
[2021-09-09 04:44] LABS: Lymphocytes # 1.1 K/mcL (0.6-4.6); Monocytes # 0.7 K/mcL (0.0-1.3); Neutrophils # 14.9 K/mcL (1.6-8.9); Platelet Estimate Normal (Normal)
[2021-09-09] MEDS: *HR* OxyCODONE/APAP 10/325 TABLET PO PRN ×5 (04:51→21:58)
[2021-09-09] MEDS: ALPRAZolam 1 MG TABLET PO PRN ×3 (04:51→21:58)
[2021-09-09] MEDS: Budesonide/Formoterol 160/4.5 1 PUFF INH IH SCH ×2 (07:40→21:04)
[2021-09-09] MEDS: Tiotropium 10 INH DOSE IH SCH (07:41)
[2021-09-09] MEDS: Sucralfate 1 GM TABLET PO SCH ×3 (09:22→17:31)
[2021-09-09] MEDS: amLODIPine 5 MG TABLET PO SCH (09:22)
[2021-09-09] MEDS: predniSONE 20 MG TABLET PO SCH ×2 (09:22→17:31)
[2021-09-09] MEDS: Gabapentin 300 MG CAPSULE PO SCH ×2 (09:23→21:59)
[2021-09-09] MEDS: Aspirin 81 MG TAB.CHEW PO SCH (09:23)
[2021-09-09] MEDS: *HR* Enoxaparin 80 MG/0.8 ML SYRINGE SQ SCH ×2 (09:23→22:00)
[2021-09-09] MEDS: Nicotine 21 MG PATCH.TD24 TD SCH (11:55)
[2021-09-09] MEDS ORDERED: *HR* Warfarin 3 MG TABLET PO ONE (18:00)
[2021-09-09] MEDS: traZODone 50 MG TABLET PO SCH (21:59)
[2021-09-10] MEDS ORDERED: *HR* Metoprolol 5 MG/5 ML VIAL IVP ONE (00:09)
[2021-09-10] MEDS: Piperacillin/Tazobactam 3.375 GM in 0.9 % Sodium Chloride Mini Bag 100 ML IVPB SCH ×3 (01:01→17:07)
[2021-09-10 01:26] LABS: Hematocrit 30.2 % (35.3-44.9); Hemoglobin 9.6 g/dL (11.5-15.4); Mean Corpuscular HGB Conc 31.8 g/dL (31.6-35.5); Mean Corpuscular Hemoglobin 30.7 pg (28.0-33.3); Mean Corpuscular Volume 96.5 fL (83.0-100.0); Mean Platelet Volume 8.6 fL (9.4-12.4); Platelet Count 308 K/mcL (140-400); Red Blood Count 3.13 M/mcL (3.82-4.97); Red Cell Distribution Width 15.9 % (11.5-14.5); White Blood Count 14.5 K/mcL (4.3-11.1)
[2021-09-10 01:39] LABS: INR 2.8; Prothrombin Time 30.8 Seconds (9.4-12.1)
[2021-09-10] MEDS: Levalbuterol Neb 1.25 MG/3 ML IH SCH ×6 (03:46→23:59)
[2021-09-10] MEDS: *HR* OxyCODONE/APAP 10/325 TABLET PO PRN ×4 (05:52→21:07)
[2021-09-10] MEDS: amLODIPine 5 MG TABLET PO SCH (09:52)
[2021-09-10] MEDS: Aspirin 81 MG TAB.CHEW PO SCH (09:52)
[2021-09-10] MEDS: predniSONE 20 MG TABLET PO SCH ×2 (09:53→17:07)
[2021-09-10] MEDS: Gabapentin 300 MG CAPSULE PO SCH ×2 (09:53→20:12)
[2021-09-10] MEDS: Sucralfate 1 GM TABLET PO SCH ×3 (09:53→17:07)
[2021-09-10] MEDS: Tiotropium 10 INH DOSE IH SCH (10:56)
[2021-09-10] MEDS: Budesonide/Formoterol 160/4.5 1 PUFF INH IH SCH ×2 (10:57→23:59)
[2021-09-10] MEDS: ALPRAZolam 1 MG TABLET PO PRN ×2 (12:31→20:13)
[2021-09-10] MEDS: Nicotine 21 MG PATCH.TD24 TD SCH (12:31)
[2021-09-10] MEDS ORDERED: *HR* Warfarin 0.5 MG TABLET PO ONE (18:00)
[2021-09-10] MEDS: traZODone 50 MG TABLET PO SCH (20:13)
[2021-09-11] MEDS: Piperacillin/Tazobactam 3.375 GM in 0.9 % Sodium Chloride Mini Bag 100 ML IVPB SCH ×2 (01:48→11:13)
[2021-09-11] MEDS: *HR* OxyCODONE/APAP 10/325 TABLET PO PRN ×3 (01:55→12:45)
[2021-09-11] MEDS: Levalbuterol Neb 1.25 MG/3 ML IH SCH ×3 (04:05→11:32)
[2021-09-11] MEDS: ALPRAZolam 1 MG TABLET PO PRN ×2 (04:49→12:45)
[2021-09-11 05:50] LABS: INR 2.6; Prothrombin Time 28.3 Seconds (9.4-12.1)
[2021-09-11] MEDS: Budesonide/Formoterol 160/4.5 1 PUFF INH IH SCH (07:51)
[2021-09-11] MEDS: Tiotropium 10 INH DOSE IH SCH (07:52)
[2021-09-11] MEDS: amLODIPine 5 MG TABLET PO SCH (08:37)
[2021-09-11] MEDS: Aspirin 81 MG TAB.CHEW PO SCH (08:39)
[2021-09-11] MEDS: Gabapentin 300 MG CAPSULE PO SCH (08:39)
[2021-09-11] MEDS: Sucralfate 1 GM TABLET PO SCH ×2 (08:39→11:14)
[2021-09-11] MEDS ORDERED: predniSONE 20 MG TABLET PO SCH (09:00)
[2021-09-11 11:01] VITALS: PULSE 96; TEMP 98.6
[2021-09-11 11:11] LABS: Influenza A PCR Negative (Negative); Influenza B PCR Negative (Negative); Resp. Syncytial Virus PCR Negative (Negative)
[2021-09-11 11:12] LABS: SARS-CoV-2 by PCR (In House) Negative (Negative)
[2021-09-11 13:54] VITALS: BP 147/86
[2021-09-11] MEDS: Nicotine 21 MG PATCH.TD24 TD SCH (14:34)
[2021-09-11 16:01] VITALS: O2SAT 96
[2021-09-11] MEDS ORDERED: *HR* Warfarin 1 MG TABLET PO ONE (18:00)
== END 2021-09-11 15:50 | disposition other institution (70) | DRG 871 ==
LOC: 3NENU 23:49 → EMEROOARM 23:49 → SUATTDRO 09-04 04:39 → OBSVTOIN 09-04 04:39 → 2ANU 09-04 04:47
PROVIDERS: ADMIT Student in an Organized Health Care Education/Training Program; ATTEND Internal Medicine